=== PATIENT | female | born 1980 ===

== ENCOUNTER 2020-08-28 10:20 | Outpatient (REF) | payer MEDICAID, SELFPAY ==
[2020-08-28 10:57] LABS: MANUAL DIFF FLAG NO
[2020-08-28 11:02] LABS: Basophils Percent Auto 0.5 % (0-2); Eosinophils Percent Auto 0.7 % (0-4); Hematocrit 37.7 % (37-47); Hemoglobin 12.7 g/dl (12.0-16.0); Imm Gran Abs Auto 0.01 X10*3/uL (0.00-0.03); Imm Gran Pct Auto 0.2 % (0.0-0.4); Lymphocytes Absolute Auto 1.8 X10*3/uL (1.2-4.9); Lymphocytes Percent Auto 42.7 % (20-40); Mean Corpuscular HGB Conc 33.7 g/dl (31.0-35.0); Mean Corpuscular Hemoglobin 30.9 pg (27.0-33.0); Mean Corpuscular Volume 91.7 fL (80-98); Mean Platelet Volume 9.6 fL (9.4-12.3); Monocytes Absolute Auto 0.3 X10*3/uL (0.1-1.2); Monocytes Percent Auto 6.7 % (2-11); Neutrophils Absolute Auto 2.1 X10*3/uL (2.0-8.3); Neutrophils Percent Auto 49.2 % (45-73); Platelet Count 242 X10*3/uL (160-400); Red Blood Count 4.11 X10*6/uL (4.20-5.50); Red Cell Distribution Width 12.5 % (11.0-16.0); White Blood Count 4.2 X10*3/uL (4.8-10.8)
[2020-08-28 11:31] LABS: Alanine Aminotransferase 24 U/L (0-31); Albumin Level 4.4 g/dL (3.5-5.0); Alkaline Phosphatase 52 U/L (39-117); Aspartate Amino Transferase 21 U/L (5-31); Bilirubin Direct 0.2 mg/dL (0.0-0.5); Bilirubin Total 0.3 mg/dL (0.0-1.0)
[2020-08-28 11:44] LABS: TSH reflex Free T4 0.41 mIU/mL (0.32-4.0)
[2020-08-28 12:00] LABS: Vitamin B12 391 pg/mL (200-900)
== END 2020-08-28 10:21 | disposition home or self-care (01) ==
LOC: HO.LAB 10:20
PROVIDERS: Visit Provider Internal Medicine
DX: E53.8 Deficiency of other specified B group vitamins (principal); R53.83 Other fatigue
CPT/HCPCS: 36415; 80076; 82607; 84443; 85025

== ENCOUNTER → 2020-11-21 07:25 | Outpatient (BNVA) | payer MEDICAID, SELFPAY | PROVIDERS: Visit Provider Internal Medicine Endocrinology, Diabetes & Metabolism | DX: R23.2 Flushing (principal); R61 Generalized hyperhidrosis | CPT/HCPCS: 99202 ==

== ENCOUNTER 2020-11-21 08:29 | Outpatient (REF) | payer MEDICAID, SELFPAY ==
[2020-11-21 10:58] LABS: Free T4 (Free Thyroxine) 0.99 ng/dL (0.71-1.85); Thyroid Stimulating Hormone 0.88 uIU/mL (0.32-4.0)
[2020-11-22 17:08] LABS: Follicle Stimulating Hormone 26.9 mIU/mL; Lutenizing Hormone 9.9 mIU/mL
[2020-11-24 22:33] LABS: Estradiol Ultra Sensitive 15 pg/mL
[2020-11-28 15:22] LABS: Estrogen 180.6 pg/mL
== END 2020-11-21 08:30 | disposition home or self-care (01) ==
LOC: HO.10HDL 08:29
PROVIDERS: Visit Provider Internal Medicine Endocrinology, Diabetes & Metabolism
DX: R23.2 Flushing (principal)
CPT/HCPCS: 36415; 82670; 82672; 83001; 83002; 84439; 84443

== ENCOUNTER 2020-12-27 09:20 | Outpatient (REF) | payer MEDICAID, SELFPAY ==
[2020-12-31 21:47] LABS: Hydroindolacetic Acid,5- 9.3 mg/24 h (<=6.0); Total Volume 1575 mL
== END 2020-12-27 09:21 | disposition home or self-care (01) ==
LOC: HO.LNP 09:20
PROVIDERS: Visit Provider Internal Medicine Endocrinology, Diabetes & Metabolism
DX: R23.2 Flushing (principal)
CPT/HCPCS: 81050; 83497

== ENCOUNTER 2021-01-13 13:29 | Outpatient (REF) | payer MEDICAID, SELFPAY ==
--- NOTE | ~2021-01-13 | MM_ITS ---
EXAMINATION: MM SCREENING DIGITAL BREAST TOMOSYNTHESIS, BILATERAL CLINICAL INFORMATION: Screening. Asymptomatic. The lifetime risk of breast cancer based on the Tyrer-Cuzick Model is 9.2%. COMPARISON: Mammography: July 03, 2019 TECHNIQUE: Digital breast tomosynthesis is performed in both the craniocaudal and mediolateral oblique views along with computer-aided detection (CAD). Synthesized 2D images are generated from the tomosynthesis. FINDINGS: The breasts are extremely dense, which lowers the sensitivity of mammography (ACR BI-RADS breast composition Category d). There are no significant masses, abnormal calcifications, or other abnormalities. MM/MM tomosynthesis screening BI IMPRESSION: There are no significant changes from prior study. ASSESSMENT: BI-RADS 1: Negative RECOMMENDATION: Routine annual mammography screening. This patient's information was entered into a reminder system with a target due date for their next mammogram.
== END 2021-01-13 13:30 | disposition home or self-care (01) ==
LOC: HO.MAMMO 13:29
PROVIDERS: PCP Family Medicine; Visit Provider Family Medicine
DX: Z12.31 Encounter for screening mammogram for malignant neoplasm of breast (principal)
CPT/HCPCS: 77063; 77067

== ENCOUNTER 2021-01-14 09:44 | Outpatient (REF) | payer MEDICAID, SELFPAY ==
[2021-01-17 17:51] LABS: Chromogranin A 73 ng/mL (25-140)
== END 2021-01-14 09:45 | disposition home or self-care (01) ==
LOC: HO.LAB 09:44
PROVIDERS: PCP Family Medicine; Visit Provider Internal Medicine Endocrinology, Diabetes & Metabolism
DX: R23.2 Flushing (principal)
CPT/HCPCS: 36415; 86316

== ENCOUNTER 2022-01-20 15:41 | Outpatient (REF) | payer MEDICAID, SELFPAY ==
--- NOTE | ~2022-01-20 | MM_ITS ---
EXAMINATION: MM SCREENING DIGITAL BREAST TOMOSYNTHESIS, BILATERAL CLINICAL INFORMATION: Screening. Asymptomatic. The lifetime risk of breast cancer based on the Tyrer-Cuzick Model is 9%. COMPARISON: Mammography: 01/13/2021, 07/03/2019 (baseline) TECHNIQUE: Digital breast tomosynthesis is performed in both the craniocaudal and mediolateral oblique views along with computer-aided detection (CAD). Synthesized 2D images are generated from the tomosynthesis. FINDINGS: The breasts are heterogeneously dense, which may obscure small masses (ACR BI-RADS breast composition Category c). There are no significant masses, abnormal calcifications, or other abnormalities. The axilla and skin contours are unremarkable. MM/MM tomosynthesis screening BI IMPRESSION: No mammographic evidence of malignancy. ASSESSMENT: BI-RADS 1: Negative RECOMMENDATION: Routine annual mammography screening. This patient's information was entered into a reminder system with a target due date for their next mammogram.
== END 2022-01-20 15:42 | disposition home or self-care (01) ==
LOC: HO.MAMMO 15:41
PROVIDERS: PCP Family Medicine; Visit Provider Emergency Medicine
DX: Z12.31 Encounter for screening mammogram for malignant neoplasm of breast (principal)
CPT/HCPCS: 77063; 77067

== ENCOUNTER 2023-03-01 15:05 | Outpatient (REF) | payer MEDICAID, SELFPAY ==
--- NOTE | ~2023-03-01 | MM_ITS ---
EXAMINATION: MM SCREENING DIGITAL BREAST TOMOSYNTHESIS, BILATERAL CLINICAL INFORMATION: Screening. Asymptomatic. The lifetime risk of breast cancer based on the Tyrer-Cuzick Model is 9%. COMPARISON: Mammography: 01/20/2022, 01/13/2021, 07/03/2019 TECHNIQUE: Digital breast tomosynthesis is performed in both the craniocaudal and mediolateral oblique views along with computer-aided detection (CAD). Synthesized 2D images are generated from the tomosynthesis. FINDINGS: The breasts are heterogeneously dense, which may obscure small masses (ACR BI-RADS breast composition Category c). There is a fine fibronodular parenchymal pattern similar to prior studies. No developing density or architectural abnormality. There are no significant masses, abnormal calcifications, or other abnormalities. The axilla and skin contours are unremarkable. MM/MM tomosynthesis screening BI IMPRESSION: No mammographic evidence of malignancy. ASSESSMENT: BI-RADS 1: Negative RECOMMENDATION: Routine annual mammography screening. This patient's information was entered into a reminder system with a target due date for their next mammogram.
== END 2023-03-01 15:06 | disposition home or self-care (01) ==
LOC: HO.MAMMO 15:05
PROVIDERS: PCP Family Medicine; Visit Provider Family Medicine
DX: Z12.31 Encounter for screening mammogram for malignant neoplasm of breast (principal)
CPT/HCPCS: 77063; 77067

== ENCOUNTER 2023-05-18 19:18 | Outpatient (REF) | payer MEDICAID, SELFPAY ==
[2023-05-24 06:34] LABS: HPV mRNA E6/E7 rflx Not Detected (Not Detected)
== END 2023-05-18 19:19 | disposition home or self-care (01) ==
LOC: HO.HHCLNP 19:18
PROVIDERS: Visit Provider Advanced Practice Midwife
DX: Z12.4 Encounter for screening for malignant neoplasm of cervix (principal); Z11.51 Encounter for screening for human papillomavirus (HPV)
CPT/HCPCS: 87624; 88142

== ENCOUNTER 2023-06-10 08:59 | Emergency (ER) | payer MEDICAID, SELFPAY ==
--- NOTE | ~2023-06-10 | XR_ITS ---
EXAMINATION: XR CERVICAL SPINE CLINICAL INFORMATION: Neck pain and right arm pain COMPARISON: Previous x-ray from 2013 TECHNIQUE: 4 views of the cervical spine were obtained. FINDINGS: Bone alignment is normal. No fracture or dislocation. Mild disc space narrowing at C5-C6. Prevertebral soft tissues are normal. XR/XR cervical spine 4V IMPRESSION: Mild disc space narrowing at C5-C6.
[2023-06-10 09:29] VITALS: BP 115/68; PULSE 94; RESP 14; TEMP 36.9; O2SAT 98
[2023-06-10 09:35] VITALS: BP 115/68; PULSE 98; RESP 16; TEMP 36.9; BMI 23.4
--- NOTE | 2023-06-10 09:54 | ED.NECK ---
HPI - Neck Pain/Injury General Chief Complaint: Extremity Problem Stated Complaint: R Side Neck Shoulder Arm Pain No Injury Time Seen by Provider: 06/10/23 09:13 Source: patient Mode of arrival: ambulatory Limitations: no limitations History of Present Illness HPI Narrative: 42-year-old right-hand dominant female presents to the ER for evaluation of neck pain for the last 1 month. She states the pain is mostly on the right side of her neck and the back of her neck that radiates to her upper back, posterior right shoulder and now down her arm into her hands. She has some tingling sensation down in her hand. She denies any trauma or injury. No history of neck pain in the past. She went [facility] this week, was prescribed Motrin, Tylenol, pain patches with minimal relief. She denies any headache. MD complaint: neck pain Onset (ago): month(s) (1) Place: home Radiation: right lateral Severity: moderate Severity scale (1-10): 7 Quality: sharp and aching Duration: progressively worsening Relieving factors: none Exacerbating factors: movement of extremity and movement of neck Context: unknown Associated symptoms: numbness and tingling Treatments prior to arrival: acetaminophen Related Data Home Medications Medication Instructions Recorded Confirmed diphenoxylate-atropine 2.5 2 tab PO TID-QID PRN 11/21/20 11/21/20 mg-0.025 mg tablet famotidine 20 mg tablet (Acid 20 mg PO BID 11/21/20 11/21/20 Pharmacy Technology Instructor (famotidine)) zolpidem 10 mg tablet (Ambien) 10 mg PO BEDTIME PRN 11/21/20 11/21/20 Previous Rx's Medication Instructions Recorded cyclobenzaprine 10 mg tablet 10 mg PO TID PRN muscle spasm #14 06/10/23 tabs prednisone 20 mg tablet 40 mg PO DAILY #10 tabs 06/10/23 Allergies Allergy/AdvReac Type Severity Reaction Status Date / Time No Known Allergies Allergy Unverified 07/03/20 15:09 [No Known Allergies*] Review of Systems Review of Systems: Yes all other systems are reviewed and are negative PMFSH Past Medical History Medical History (Updated 06/10/23 @ 11:39 by MILE Dillard) Hot flashes Surgical History (Updated 11/21/20 @ 07:33 by Elvira Bean LPN) No history of previous surgery Family History Family History (Updated 11/21/20 @ 07:34 by Elvira Bean LPN) Mother Hypertension Maternal Aunt Diabetes Social History Social History (Updated 11/21/20 @ 07:35 by Elvira Bean LPN) Alcohol intake: never Advance Directives: No Advance Directives Information Provided: No Physical Exam Vital Signs: Vital Signs: Last Vital Signs Temp 98.4 F 06/10/23 09:35 Pulse 98 06/10/23 09:35 Resp 16 06/10/23 09:35 BP 115/68 06/10/23 09:35 Pulse Ox 98 06/10/23 09:29 O2 Del Method Room Air 06/10/23 09:35 BMI result Body Mass Index 23.4 Appearance: Alert. Oriented X3. No acute distress. Head: normocephalic, atraumatic. Eyes: Pupils equal, round and reactive to light. ENT: Pharynx normal. No tonsillar swelling or exudate. Neck: Normal inspection. Neck supple. No midline tenderness. There is right sided soft tissue tenderness with limited ROM, pain with rotation to the left. Soft tissue tenderness and palpable spasm of the upper trapezius. CVS: Normal heart rate and rhythm. Pulses normal. Respiratory: No respiratory distress. Breath sounds normal. Abdomen: Soft and nontender. +BS x4 Skin: Skin warm and dry. Normal skin color. Normal skin turgor. No rashes. Extremities: No lower extremity edema. No joint swelling. Normal passive ROM of the RUE. Neuro/psych: Oriented X 3. No motor deficit. Strength is equal and symmetrical throughout. No sensory deficit. CN II-XII intact. Normal speech and cognition. Medications Administered Discontinued Medications Generic Name Dose Route Start Last Admin Trade Name Freq PRN Reason Stop Dose Admin Cyclobenzaprine HCl 10 mg 06/10/23 09:37 06/10/23 11:15 Cyclobenzaprine Hcl 10 Mg Tablet PO 06/10/23 09:38 10 mg ONCE ONE Administration Ketorolac Tromethamine 30 mg 06/10/23 09:37 06/10/23 11:15 Ketorolac Tromethamine 30 Mg/Ml Vial IM 06/10/23 09:38 30 mg ONCE ONE Administration Lidocaine 1 patch 06/10/23 09:37 06/10/23 11:16 Lidocaine 4 % Patch Adh..Patch TRANSDERMA 06/10/23 09:38 1 patch ONCE ONE Administration Protocol Medical Decision Making Medical Decision Making [facility] Narrative: 42-year-old female presents to the ER for evaluation of nontraumatic right-sided neck pain for the last 1 month. Progressively worsening and now with radicular symptoms down to the right arm. She is neurologically intact with equal strength. X-ray showing mild disc space narrowing at C5-C6. Will plan to start steroids for anti-inflammatories and muscle relaxers for muscle strain and spasm. She will follow-up with primary care doctor for further evaluation and treatment. Return precautions were discussed. Stable for discharge home. Differential Diagnosis Differential Diagnoses: The differential diagnosis associated with the presentation includes cervical radiculopathy, degenerative disc disease, torticollis, neuropathy Independent Interpretation I performed an independent interpretation of an: Plain X-Ray Interpretation: x-ray without acute fractures or significant disc space narrowing - agree w/ radiology read Radiology Impression Discussion of test interpretation with radiology: I have reviewed the radiologist's reading. Radiologist Impression: EXAMINATION: XR CERVICAL SPINE CLINICAL INFORMATION: Neck pain and right arm pain COMPARISON: Previous x-ray from 2013 TECHNIQUE: 4 views of the cervical spine were obtained. FINDINGS: Bone alignment is normal. No fracture or dislocation. Mild disc space narrowing at C5-C6. Prevertebral soft tissues are normal. XR/XR cervical spine 4V IMPRESSION: Mild disc space narrowing at C5-C6. External Record Review External record reviewed: Prior outpatient labs and Prior outpatient radiology Prescription Management I considered prescription management with: Pain Medication Discharge Plan Discharge Clinical Impression: Cervical radiculopathy Patient Disposition: Home, Self-Care Instructions: Cervical Radiculopathy (ED) Additional Instructions: Your x-ray today showed some mild disc narrowing Take the prescribed prednisone x5 days to help with swelling that could be pinching a nerve Take the prescribed muscle relaxer Use a heating pad on low-medium heat several times per day Follow up with your PCP for further evaluation and treatment. If you develop new or worsening symptoms call 911 or come back to the ER for further evaluation. Prescriptions: New cyclobenzaprine 10 mg tablet 10 mg PO TID PRN (Reason: muscle spasm) Qty: 14 0RF prednisone 20 mg tablet 40 mg PO DAILY Qty: 10 0RF No Action famotidine [Acid Pharmacy Technology Instructor (famotidine)] 20 mg tablet 20 mg PO BID zolpidem [Ambien] 10 mg tablet 10 mg PO BEDTIME PRN diphenoxylate-atropine 2.5-0.025 mg tablet 2 tab PO TID-QID PRN Referrals: Krystal Metcalf PRINTER'S ASSISTANT [Primary Care Provider] - Interventions: ED Discharge Assessment Last Done: 06/10/23 11:45 Discharge Date/Time: 06/10/23 11:45
[2023-06-10] MEDS: Ketorolac Tromethamine 30 MG/ML VIAL IM (11:15)
[2023-06-10] MEDS: Cyclobenzaprine HCl 10 MG TABLET PO (11:15)
[2023-06-10] MEDS: Lidocaine 4 % Patch ADH..PATCH 1 PATCH TRANSDERMA (11:16)
== END 2023-06-10 11:45 | disposition home or self-care (01) ==
PROVIDERS: Emergency Provider Emergency Medicine Emergency Medical Services; PCP Registered Nurse Community Health
DX: M54.12 Radiculopathy, cervical region (principal); M54.2 Cervicalgia
CPT/HCPCS: 72050; 96372; 99284; J1885

== ENCOUNTER 2023-07-01 10:18 | Outpatient (REF) | payer MEDICAID, SELFPAY ==
--- NOTE | ~2023-07-01 | XR_ITS ---
EXAMINATION: XR SHOULDER, RIGHT CLINICAL INFORMATION: Pain in right shoulder COMPARISON: None available. TECHNIQUE: AP external rotation, Grashey, scapular Y, and axillary views of the right shoulder. FINDINGS: The bones and soft tissues are normal. No fracture. Glenohumeral and acromioclavicular alignment is anatomic with normal joint space. No abnormal soft tissue calcifications. XR/XR shoulder RT min 2V IMPRESSION: No bony abnormality.
== END 2023-07-01 10:19 | disposition home or self-care (01) ==
LOC: HO.HOSX 10:18
PROVIDERS: Visit Provider Physician Assistant
DX: M25.511 Pain in right shoulder (principal); M75.81 Other shoulder lesions, right shoulder; M54.12 Radiculopathy, cervical region; R20.0 Anesthesia of skin; R20.2 Paresthesia of skin
CPT/HCPCS: 73030; 99212

== ENCOUNTER 2023-07-01 12:34 | Outpatient (AMB) | payer MEDICAID, SELFPAY ==
--- NOTE | 2023-07-01 12:47 | A.OFFVIS_ITS ---
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 Patient reports pain started on 06/08/23, denies any injury. States thought she had a stiff neck but pain started to that radiate down her arm to her neck. Currently constant burning/tingling pain. She has numbness in her thumb, 2nd and 3rd digit. Finds no relief with Tylenol, ibuprofen, or tramadol that was prescribed by walk in clinic. No other tx. 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 She states she has constant burning and tingling pain in her shoulder which radiates from her neck down to her arm. She also c/o numbness in her thumb, 2nd and 3rd digit. She finds no relief with Tylenol, ibuprofen or tramadol which was prescribed by the walk-in clinic. She denies any recent injury and has not had any treatment in the past. [facility] Medical History (Updated 07/01/23 @ 12:59 by Rafa Hou PA-C) Hot flashes Surgical History No history of previous surgery Family History (Updated 11/21/20 @ 07:34 by Elvira Bean LPN) Mother Hypertension Maternal Aunt Diabetes Social History (Updated 07/01/23 @ 12:50 by ZORAN Levin) Alcohol intake: never Patient Tobacco Use Status: Never used Tobacco Current occupational status: unemployed Review of Systems Const All systems reviewed & are unremarkable except as noted in HPI and below Physical Exam Vital Signs: BMI result Body Mass Index 23.4 Const General: cooperative, healthy appearing, comfortable, no acute distress, well developed and alert Orientation/consciousness: patient oriented x3 HEENT Head: Yes normal to inspection, Yes normocephalic and Yes atraumatic Eyes General: appearance normal, both eyes and all related structures Resp Effort & Inspection: normal respiratory effort and able to speak in complete sentences Cardio Rate: regular rate Peripheral pulses: Peripheral pulses 2+ throughout GI Palpation (GI): Soft to palpation Skin Lesions: no lesions Rashes: no rashes Neuro General: patient oriented x3 Extrem Other: Right shoulder: Tenderness along the trapezium which extends to the right side of her neck. She does have pain with [id number] rotation of the neck. Positive Pollard. Results Reviewed Results Reviewed: Xrays were obtained in the office today and personally reviewed by me of the right shoulder are negative for acute fracture or dislocations Assessment & Plan Assessment & Plan (1) Tendinitis of right rotator cuff: Code(s): M75.81 - Other shoulder lesions, right shoulder (2) Cervical radiculopathy: Code(s): M54.12 - Radiculopathy, cervical region Plan An order has been placed of physical therapy for C spine and right shoulder. We will also obtain an EMG study for further evaluate the burning sensation on her RUE. I did discuss potentially sending her to physiatry for trigger point injection depending on the results of her EMG study. She is content with this plan. Orders: Orders NE nerve conduction velocity 07/01/23 R20.0 - Anesthesia of skin, R20.2 - Paresthesia of skin NE electromyogram (EMG) 07/01/23 R20.0 - Anesthesia of skin, R20.2 - Paresthesia of skin XR shoulder RT min 2V 07/01/23 M25.511 - Pain in right shoulder PT Evaluation and Treatment 07/01/23 M75.81 - Other shoulder lesions, right shoulder, M54.12 - Radiculopathy, cervical region Medications: New diclofenac sodium 1% apply 4grams to affected area four times a day as needed 4 grams topical QID 100 grams 6RF 30 days Patient Instructions: Scribed for Rafa Hou PA-C, by Heron Joe medical laboratory specialist, on 07/01/2023 at 1:00 PM EST. Rafa Zamora PA-C, have personally reviewed and agree with the information entered by the scribe. Coding Level of Care Code New Pt Level 3 (30632) Diagnoses Tendinitis of right rotator cuff M75.81 Cervical radiculopathy M54.12
[2023-07-01 12:50] VITALS: BMI 23.4
== END 2023-07-01 14:20 | disposition home or self-care (01) ==
PROVIDERS: PCP Registered Nurse Community Health; Visit Provider Physician Assistant
DX: M75.81 Other shoulder lesions, right shoulder (principal); M54.12 Radiculopathy, cervical region
CPT/HCPCS: 99203

== ENCOUNTER 2023-07-28 14:54 | Outpatient (REF) | payer MEDICAID, SELFPAY ==
--- NOTE | 2023-07-28 14:57 | EMG_ITS ---
Chief complaint: Right shoulder pain Reason for referral: Evaluate for radiculopathy Referred by: Rafa TREADWELL Procedure done: Right upper extremity NCS/EMG Precautions and/or limitations: None The limb temperature was monitored continuously and remained between 32-36 degrees C during the performance of the NCS. Nerve Conduction Studies Anti Sensory Summary Table ?Stim Site NR Onset (ms) Norm Onset (ms) Peak (ms) Norm Peak (ms) O-P Amp (?V) Norm O-P Amp Site1 Site2 Delta-0 (ms) Dist (cm) Иван (m/s) Norm Иван (m/s) Right Median Anti Sensory (2nd Digit) Wrist ? 2.7 3.4 <3.6 50.4 >10 Wrist 2nd Digit 2.7 14.0 52 Right Radial Anti Sensory (Thumb) Forearm ? 1.8 2.2 <3.1 39.1 Forearm Thumb 1.8 0.0 Right Ulnar Anti Sensory (5th Digit) Wrist ? 2.7 3.3 <3.7 54.5 >15.0 Wrist 5th Digit 2.7 14.0 52 Motor Summary Table ?Stim Site NR Onset (ms) Norm Onset (ms) O-P Amp (mV) Norm O-P Amp iAmp (mV) Amp (1st) (%) Site1 Site2 Delta-0 (ms) Dist (cm) Иван (m/s) Norm Иван (m/s) Right Median Motor (Abd Poll Brev) Wrist ? 2.9 <3.9 8.9 >4.5 10.8 100.0 Elbow Wrist 3.4 19.0 56 >45 Elbow ? 6.3 8.9 10.7 100.0 Right Ulnar Motor (Abd Dig Minimi) Wrist ? 2.7 <3.0 7.5 >5 8.6 100.0 B Elbow Wrist 2.5 16.0 64 >45 B Elbow ? 5.2 7.8 9.0 104.0 A Elbow B Elbow 1.3 10.0 77 >45 A Elbow ? 6.5 7.9 9.2 105.3 EMG ?Side Muscle Nerve Root Ins Act Fibs Psw Amp Dur Poly Recrt Int Pat Comment Right 1stDorInt Ulnar C8-T1 Nml Nml Nml Nml Nml 0 Nml Complete Right FlexCarRad Median C6-7 Nml Nml Nml Nml Nml 0 Nml Complete Right Biceps Musculocut C5-6 Nml Nml Nml Nml Nml 0 Nml Complete Right Triceps Radial C6-7-8 Nml Nml Nml Nml Nml 0 Nml Complete Right Deltoid Axillary C5-6 Nml Nml Nml Nml Nml 0 Nml Complete FINDINGS: All motor and sensory nerves tested showed normal latencies, amplitudes and conduction velocities. Concentric needle EMG was performed in selected muscles of the right upper extremity. Study did not reveal signs of electric abnormalities as shown in the table below. IMPRESSION: 1. This is a normal study. 2. There is no electrodiagnostic evidence for median neuropathy, ulnar neuropathy, brachial plexopathy, or cervical radiculopathy. Thank you for your kind referral. Zahira Suazo MD, LOIS Board Certified, [place] Board [employer] and Rehabilitation (ABPMR) Board Certified, [place] Board of Electrodiagnostic Medicine (ABEM) CODIN [id number] MTDD
== END 2023-07-28 14:55 | disposition home or self-care (01) ==
LOC: HO.NEURO 14:54
PROVIDERS: PCP Registered Nurse Community Health; Visit Provider Physician Assistant
DX: R20.0 Anesthesia of skin (principal); R20.2 Paresthesia of skin
CPT/HCPCS: 95886; 95909

== ENCOUNTER → 2023-07-28 14:57 | Outpatient (BNV) | payer MEDICAID, SELFPAY | PROVIDERS: PCP Registered Nurse Community Health; Visit Provider Physical Medicine & Rehabilitation | DX: M25.511 Pain in right shoulder (principal) | CPT/HCPCS: 95886; 95909 ==

== ENCOUNTER 2023-08-15 15:33 | Outpatient (AMB) | payer MEDICAID, SELFPAY ==
[2023-08-15 15:33] VITALS: BMI 23.4
--- NOTE | 2023-08-15 15:33 | A.OFFVIS_ITS ---
Intake Vital Signs 08/15/23 15:33 Height 5 ft 2 in Weight 128 lb BMI 23.4 Intake Visit Reasons: Tele- Right Shoulder pain, EMG review Intake Note: Ines is a 42 year old female who presents VIA telephone for an EMG review and complaints of right shoulder pain. Allergies No Known Allergies [No Known Allergies*] Allergy (Unverified 08/15/23 15:34) HPI Tele- Right Shoulder pain, EMG review HPI Details 42 yo presents for telehealth EMG review RUE. She continues to have discomfort in the neck region. Her numbness and tingling has subsided, not constant. [facility] Medical History (Updated 07/01/23 @ 12:59 by Rafa Hou PA-C) Hot flashes Surgical History No history of previous surgery Family History (Updated 11/21/20 @ 07:34 by Elvira Bean LPN) Mother Hypertension Maternal Aunt Diabetes Social History (Updated 07/01/23 @ 12:50 by ZORAN Levin) Alcohol intake: never Patient Tobacco Use Status: Never used Tobacco Current occupational status: unemployed Review of Systems Const All systems reviewed & are unremarkable except as noted in HPI and below Physical Exam Vital Signs: BMI result Body Mass Index 23.4 Resp Effort & Inspection: normal respiratory effort and able to speak in complete sentences Results Reviewed Results Reviewed: EMG 07/28/23 IMPRESSION: 1. This is a normal study. 2. There is no electrodiagnostic evidence for median neuropathy, ulnar neuropathy, brachial plexopathy, or cervical radiculopathy. Assessment & Plan Assessment & Plan (1) Cervical radiculopathy: Code(s): M54.12 - Radiculopathy, cervical region (2) Tendinitis of right rotator cuff: Code(s): M75.81 - Other shoulder lesions, right shoulder Plan We discussed options, she does have an appt for PT set up which I think she should keep. I did offer her an appt with our finishing lab technician to further evaluate the neck pain. This may be something she would benefit from trigger point injections. She is content with this plan and will f/u with me prn. Telehealth Telehealth Location of provider rendering services: practice address Location of patient: address on file Patient Identification confirmed using: Name, : Yes Telehealth method: voice only Patient verbally consented to treatment: Yes Patient verbally consented to billing insurance company: Yes Patient informed of any privacy concerns related to visit: Yes Coding Level of Care Code Tele Est Pt Level 3 (89141) Diagnoses Cervical radiculopathy M54.12 Tendinitis of right rotator cuff M75.81
== END 2023-08-15 16:30 | disposition home or self-care (01) ==
LOC: HO.HOS 15:33
PROVIDERS: PCP Student in an Organized Health Care Education/Training Program; Visit Provider Physician Assistant
DX: M54.12 Radiculopathy, cervical region (principal); M75.81 Other shoulder lesions, right shoulder
CPT/HCPCS: 99213

== ENCOUNTER → 2023-08-15 15:33 | Outpatient (BNVA) | payer MEDICAID, SELFPAY | PROVIDERS: PCP Student in an Organized Health Care Education/Training Program; Visit Provider Physician Assistant ==

== ENCOUNTER 2023-09-21 11:00 | Outpatient (RCR) | payer MEDICAID, SELFPAY | END 2023-10-31 09:43 | disposition home or self-care (01) | LOC: HO.PT 11:00 | PROVIDERS: PCP Student in an Organized Health Care Education/Training Program; Visit Provider Physician Assistant | DX: M75.81 Other shoulder lesions, right shoulder (principal); M54.12 Radiculopathy, cervical region | CPT/HCPCS: 97110; 97140; 97161 ==

== ENCOUNTER 2023-10-06 08:53 | Outpatient (AMB) | payer MEDICAID, SELFPAY ==
--- NOTE | 2023-10-06 08:58 | A.OFFVIS_ITS ---
Intake Vital Signs 10/06/23 08:59 Height 5 ft 2 in Weight 128 lb BMI 23.4 Intake Visit Reasons: New prob- Right neck / trap pain Intake Note: Ines 42 yr old female who is right hand dominant, presents today for a new problem visit for her right neck and right trap pain. Last seen with Herbert carcamo for her right shoulder pain. Patient describes pain as a shooting sharp radiating stab in neck and shoulder. States she has numbness and tingling and pain with ROM. Also states she is having radiating pain to her clavicle and and breast as well. Referred by Herbert Sanches for a further evaluation. Allergies No Known Allergies [No Known Allergies*] Allergy (Unverified 10/06/23 09:05) Medication List - Last Reconciled 10/06/23 by Zahira Suazo MD diclofenac sodium 1% 4 grams topical QID 30 days diphenoxylate-atropine 2.5-0.025 mg 2 tabs PO TID-QID PRN famotidine (Acid Maintenance Associate (famotidine)) 20 mg PO BID zolpidem (Ambien) 10 mg PO BEDTIME PRN HPI HPI Comments History of Present Illness Details At least 4 months, started as stiff neck. Then next day, woke up with posterior neck pain, running down to right arm with numbness on the thumb. This right sided area is still there. Radiation to left arm around May, but no numbness. Pain also radiates towards the right chest and under arm. I have seen the patient previously for EMG, which was normal. She is following with Orthopedics, refered to physiatry for further evaluation Xray shoulder unremarkable. Cspine xray showed disc space loss C5-6. Has seen PCP 09/23/23, ordered MRI, but still pending. Has gone to PT, 8-9 sessions at least. Advised to stop because not helping. Has been prednisone in May, doesn't think it helped. Also has been given to gabapentin which didn't help, and cymbalta which caused side effects. Flexeril didn't help as well. [facility] Medical History (Updated 10/06/23 @ 09:21 by Zahira Suazo MD) Hot flashes Surgical History No history of previous surgery Family History (Updated 11/21/20 @ 07:34 by Elvira Bean LPN) Mother Hypertension Maternal Aunt Diabetes Social History Alcohol intake: never Patient Tobacco Use Status: Never used Tobacco Current occupational status: unemployed Review of Systems Const All systems reviewed & are unremarkable except as noted in HPI and below Physical Exam Vital Signs: BMI result Body Mass Index 23.4 Constitutional: Patient appears to be in no acute distress, well nourished and well developed. However very uncomfortable. Patient was appropriately conversant and oriented. Good historian. MSK: Inspection reveals appropriate head and neck positioning. Limited cervical range of motion especially with extension and rotation to the right. Cost pain down to the right shoulder. Tightness on upper trapezius. Tender on right upper arm/subacromial/biceps area. Spurling's sign positive right. Bilateral shoulder, elbow and wrist ROM WNL. No ligamentous laxity or crepitance. No increased effusion. Strength is 5/5 in all muscle groups tested although there is give-way weakness in the right upper arm due to pain. No increased tone noted. Neurological: Neurologic examination of the upper and lower extremities was nonfocal with intact sensation, muscle stretch reflexes and without focal motor deficits . Spence?s negative bilaterally. Babinski was down going bilaterally. Clonus was negative. Gait is non-antalgic without loss of balance. Results Reviewed Results Reviewed: I independently reviewed the results of the following: Shoulder and cervical x-ray as above EMG done by me 07/28/2023 IMPRESSION: 1. This is a normal study. 2. There is no electrodiagnostic evidence for median neuropathy, ulnar neuropathy, brachial plexopathy, or cervical radiculopathy. I reviewed records from the following: Orthopedics Assessment & Plan Assessment & Plan (1) Cervical radiculitis: Code(s): M54.12 - Radiculopathy, cervical region (2) Cervical disc herniation: Code(s): M50.20 - Other cervical disc displacement, unspecified cervical region Plan Symptoms present as cervical radiculitis, right-sided, C5-C6 probably, without signs of myelopathy. It is reasonable to obtain cervical MRI to rule out cervical disc herniation causing radiculopathy. Patient has undergone conservative management including physical therapy and medications, without adequate relief. New order was placed today to facilitate. In the meantime we will prescribe oral prednisone taper. Side effects and precautions discussed with patient. Assessment and plan discussed with patient, and patient was agreeable. All questions were answered thoroughly. I will see her after MRI. Zahira Suazo MD, LOIS Board Certified, [place] [employer] and Rehabilitation (ABPMR) Board Certified, [place] Board [employer] Electrodiagnostic [employer] (ABEM) Orders: Orders MR cervical spine wo con Today M50.20 - Other cervical disc displacement, unspecified cervical region, M54.12 - Radiculopathy, cervical region Medications: New prednisone see taper instructions; 40 mg Daily for three days, 30 mg daily for three days, 20 mg daily for three days, 10 mg daily for three days 5 mg PO DIRECTED 60 tabs 0RF Coding Level of Care Code Est Pt Level 4 (91919) Diagnoses Cervical radiculitis M54.12 Cervical disc herniation M50.20
[2023-10-06 08:59] VITALS: BMI 23.4
== END 2023-10-06 09:24 | disposition home or self-care (01) ==
PROVIDERS: PCP Student in an Organized Health Care Education/Training Program; Visit Provider Physical Medicine & Rehabilitation
DX: M54.12 Radiculopathy, cervical region (principal); M50.20 Other cervical disc displacement, unspecified cervical region
CPT/HCPCS: 99214

== ENCOUNTER → 2023-10-06 08:53 | Outpatient (BNVA) | payer MEDICAID, SELFPAY | PROVIDERS: PCP Student in an Organized Health Care Education/Training Program; Visit Provider Physical Medicine & Rehabilitation | DX: M54.12 Radiculopathy, cervical region (principal); M50.20 Other cervical disc displacement, unspecified cervical region | CPT/HCPCS: 99212 ==

== ENCOUNTER 2023-10-12 16:35 | Outpatient (REF) | payer MEDICAID, SELFPAY ==
--- NOTE | ~2023-10-12 | MR_ITS ---
EXAMINATION: MR CERVICAL SPINE WITHOUT CONTRAST CLINICAL INFORMATION: Radiculopathy. Evaluate for right-sided disc herniation. COMPARISON: X-ray cervical spine dated 06/10/2023. TECHNIQUE: Multiplanar, multisequential imaging of the cervical spine was performed without contrast. FINDINGS: VERTEBRAL BODIES AND PARASPINAL SOFT TISSUES: The marrow signal is homogeneous. There are no compression fractures. Mild retrosubluxation, mild endplate edema, and moderate loss of disc height evident at the C5-C6 level. Mild reversal of the normal cervical lordosis evident with a mild leftward curvature of the cervical spine as well. The paraspinal soft tissues are normal. The vertebral artery flow-voids are maintained. The lung apices are clear. CERVICOMEDULLARY JUNCTION AND VISUALIZED POSTERIOR FOSSA: The craniovertebral junction and imaged portions of the brain parenchyma appear normal. No cord signal abnormality or syrinx is identified. SPINAL LEVELS: C2-C3: No disc pathology or central canal stenosis. Patent foramina. C3-C4: No significant disc pathology. No central canal stenosis or foraminal narrowing. C4-C5: Very mild loss of disc height and mild disc bulge with minimal uncovertebral joint spurring. No central canal stenosis or foraminal narrowing. C5-C6: Moderate loss of disc height and retrosubluxation with a broad-based right subarticular zone disc protrusion suspected to impinge upon the right C6 nerve root and mildly distort the right ventrolateral aspect of the cord. No central canal stenosis. Mild right foraminal narrowing. C6-C7 and C7-T1: Well hydrated normal appearance of the discs without central canal stenosis or foraminal narrowing. MR/MR cervical spine wo con IMPRESSION: Moderate spondylosis at the C5-C6 level with a retrosubluxation and broad-based right subarticular zone disc protrusion suspected to impinge upon the right C6 nerve root with mild distortion of the right ventrolateral aspect of the cord.
== END 2023-10-12 16:36 | disposition home or self-care (01) ==
LOC: HO.MRI 16:35
PROVIDERS: PCP Student in an Organized Health Care Education/Training Program; Visit Provider Physical Medicine & Rehabilitation
DX: M54.12 Radiculopathy, cervical region (principal); M50.20 Other cervical disc displacement, unspecified cervical region
CPT/HCPCS: 72141

== ENCOUNTER 2023-10-28 12:39 | Outpatient (AMB) | payer MEDICAID, SELFPAY ==
--- NOTE | 2023-10-28 13:03 | HO.SPINEOV ---
Intake Intake Visit Reasons: Right C5-6 disc herniated Intake Note: Ms. Espinosa is here today c/o neck pain with bilateral upper and lower extremity pain. [place] done @ [facility] [place] [employer] Required: No Allergies No Known Allergies [No Known Allergies*] Allergy (Unverified 10/06/23 09:05) Assessment & Plan Assessment & Plan (1) Cervical radiculitis: Code(s): M54.12 - Radiculopathy, cervical region Plan Dear colleague, Thank you for referring Ines to our office today. She is a pleasant 42-year-old female who comes in today with a chief complaint of neck pain with radiation into her right upper extremity since May of 2023. She reports that she awoke abruptly one morning with significant neck pain shooting into her right upper extremity. She states that as the months have gone on she has been able to identify the radiation of her pain; first it starts in her neck, then shoots across her right shoulder down her deltoid, then down her forearm and terminates in the right thumb. She reports associated weakness with hand dna sequencing associate on the right side, and also endorses difficulty using her right arm (pain limiting). She states that she is been to physical therapy in the past for this issue, and just finished in September of 2023. She reports it was not helpful and caused her increased pain. She states that she is attempted to utilize [id number] remedies such as Tylenol, ibuprofen, ice, heat, pain patches, and pain relief creams without significant relief of her symptoms. She also has been placed on gabapentin and states it is only mildly helpful. She further reports that her symptoms have begun interrupting her regular daily life, causing her to get very little sleep at night unless her pillows were arranged in the perfect way, and causing her to stop driving as of a couple of months ago because she feels she can not move her neck properly without pain. She is also been unable to work for the past 2 months due to her pain and difficulties using her right arm. PMH: Irritable bowel syndrome, insomnia, GERD. Social hx: Patient does not smoke, reports no substance use. Medications: Zolpidem, Tylenol, famotidine, gabapentin, combination control. Allergies: NKDA. Physical exam: The patient has 4/5 reduced strength in her right upper extremity, including hand dna sequencing associate / interossei. The rest of her strength is 5/5 intact. She reports reduced sensation over her right shoulder and right thumb. The rest of her sensation is intact. Her reflexes are 2+ intact in her upper and lower extremities. She is able to ambulate well and rises from a seated position without difficulty. (-) Spence's, (-) clonus. (+) Spurling's bilaterally, confounded by neck pain at rest. Imaging review: MRI completed at [facility] shows a posterior right sided disc bulge at C5-6 causing significant severe impingement on the right C6 nerve root. No significant central canal stenosis at this level. No notable cord signal change. Impression: Ines is a pleasant 42-year-old female who comes in today with a chief complaint of posterior neck pain with radicular symptoms down her right arm since May of last year. She reports no inciting incident for this injury, but states she instead awoke one morning with significant neck pain with shooting pains into her right arm. Her pain is worse with lifting and hand articulation, and is better when resting. She reports that her pain has gotten to the point where it affects her activities of daily living and has caused her to lose significant amounts of sleep. She is also been unable to work for the last couple of months due to her pain and R hand weakness. The distribution of her pain is in a classic right sided C6 dermatomal distribution, and there is impingement of this nerve noted on MRI imaging. We discussed the possibility of a C5-6 ACDF and reviewed the procedure in detail as a potential means of solving her pain / radiculopathy. We also discussed the possibility of injections, which she does not feel will be helpful given the severity of her symptoms at this time. She has been tentatively scheduled for a C5-6 ACDF on December 29 2023, but was informed that this will need to be reviewed with Dr. Pinedo who will make the final surigcal decision. Ines was given risk and benefits of surgery including but not limited to infection, hematoma, nerve injury, durotomy, weakness, bowel/bladder injury, persistent pain, as well as the option to continue with conservative treatment and patient wishes to proceed with surgery. She is aware she should stop her NSAIDs 7 days prior to surgery. All questions were answered to the best of our ability. If there is anything about this patients medical history that we have overlooked or concerns you have about us proceeding with surgery we would appreciate any input you can offer. Thank you for allowing us to care for your patient. The total time spent with this visit with this patient was 45 minutes reviewing history, physical exam, MRI imaging review, and implementation of treatment plan or further diagnostic testing Rusty Pinedo MD,PhD [facility] Coding Level of Care Code New Pt Level 4 (29960) Diagnoses Cervical radiculitis M54.12
== END 2023-10-28 13:53 | disposition home or self-care (01) ==
PROVIDERS: PCP Student in an Organized Health Care Education/Training Program; Referring Provider Physical Medicine & Rehabilitation; Visit Provider Physician Assistant
DX: M54.12 Radiculopathy, cervical region (principal)
CPT/HCPCS: 99204

== ENCOUNTER → 2023-10-28 12:39 | Outpatient (BNVA) | payer MEDICAID, SELFPAY | PROVIDERS: PCP Student in an Organized Health Care Education/Training Program; Visit Provider Physician Assistant | DX: M54.12 Radiculopathy, cervical region (principal) | CPT/HCPCS: 99212 ==

== ENCOUNTER → 2023-11-08 13:24 | Outpatient (BNV) | payer MEDICAID, SELFPAY | PROVIDERS: PCP Student in an Organized Health Care Education/Training Program; Visit Provider Internal Medicine Cardiovascular Disease | DX: Z01.810 Encounter for preprocedural cardiovascular examination (principal) | CPT/HCPCS: 93010 ==

== ENCOUNTER 2023-11-17 11:18 | Day surgery (SDC) | payer MEDICAID, SELFPAY ==
--- NOTE | 2023-11-08 | ECG_ITS ---
Test Reason : PREOP Blood Pressure : / mmHG Vent. Rate : 105 BPM Atrial Rate : 105 BPM P-R Int : 160 ms QRS Dur : 074 ms QT Int : 350 ms P-R-T Axes : 074 049 033 degrees QTc Int : 462 ms Sinus tachycardia Otherwise normal ECG No previous ECGs available Referred By: Kalani Dickerson Electronically Signed By:Patel Eastman
[2023-11-08 13:04] VITALS: BP 132/72; PULSE 106; RESP 16; O2SAT 98; BMI 25.1
--- NOTE | 2023-11-08 13:19 | P.CONAN_ITS ---
Documented by User: Kalani Dickerson NP 11/08/23 13:26 HPI - Anesthesia Eval Consult details Narrative: 43yo F for C5-6 Ant Cerv Discectomy w/ fusion, 11/17/23 No recent illness NO CP/SOB with housework. Activity limited to pain right currently. Prior to, no limitations GERD. H2 deloris BID covers symptoms PMFSH Active Problems Active Problems: All Active Problems (Updated 11/08/23 @ 13:15 by Raiza Khanna RN) Cervical disc herniation (Acute) Cervical radiculitis (Acute) Tendinitis of right rotator cuff (Acute) Hot flashes (Acute) Past Medical History Medical History Low back pain GERD (gastroesophageal reflux disease) History of IBS Neck pain Insomnia Hot flashes Family History Family History Mother Hypertension Maternal Aunt Diabetes Family history of problems with anesthesia: No Surgical History Surgical History History of esophagogastroduodenoscopy (EGD) Hx of colonoscopy History of Problems with Anesthesia: No Social History Social History 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 (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 ages 14+18) Do you presently have visiting nurse or other home services: No Alcohol intake: never Patient Tobacco Use Status: Never used Tobacco Use of substances other than those prescribed or required for medical reasons: No Are you DNR?: No Advance Directives: No Advance Directives Information Provided: Yes Advance Directives on File: No Recently lost weight without trying: No Nutrition Risks: No Nutritional Risk Patient : No FDLMP: 4-5 years ago : No Poor oral hygiene: No Current occupational status: unemployed Meds Allergies Allergy/AdvReac Type Severity Reaction Status Date / Time No Known Allergies Allergy Verified 11/17/23 11:35 [No Known Allergies*] Home Medications Medication Instructions Recorded Confirmed Last Taken Type famotidine 20 mg tablet (Acid 20 mg PO BID 11/21/20 11/07/23 11/17/23 History Family Assistant (famotidine)) zolpidem 10 mg tablet (Ambien) 10 mg PO BEDTIME PRN Insomnia 11/21/20 11/07/23 Unknown History acetaminophen 325 mg tablet 650 mg PO Q6H PRN pain 11/07/23 11/07/23 Unknown History drospirenone 3 mg-ethinyl 1 tab PO DAILY 11/07/23 11/07/23 Unknown History estradiol 0.02 mg tablet gabapentin 300 mg capsule 300 mg PO TID 11/07/23 11/07/23 Unknown History Exam Height,Weight and Vital Signs: Height 5 ft 2 in Weight 62.142 kg Last Vital Signs Pulse 106 H 11/08/23 13:04 Resp 16 11/08/23 13:04 BP 132/72 11/08/23 13:04 Pulse Ox 98 11/08/23 13:04 O2 Del Method Room Air 11/08/23 13:04 Airway Mallampati Class: I TM Dist: >3cm Neck ROM: Poor Loose/Missing/Broken Teeth: Yes (1 x pulled left lower) Heart: tachy Lungs: CTAB Assessment and Plan Assessment Anesthesia Assessment: Anesthesia Plan Discussed and PAT Visit Final Anesthetic Review Family History of Problems with Anesthesia: No History of Problems with Anesthesia: No Documented by User: Demetris Ramon MD 11/17/23 12:04 [facility] Past Medical History Medical History Low back pain GERD (gastroesophageal reflux disease) History of IBS Neck pain Insomnia Hot flashes Family History Family History Mother Hypertension Maternal Aunt Diabetes Surgical History Surgical History History of esophagogastroduodenoscopy (EGD) Hx of colonoscopy Social History Social History 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 (2 children ages 14+18) Do you presently have visiting nurse or other home services: No Alcohol intake: never Patient Tobacco Use Status: Never used Tobacco Use of substances other than those prescribed or required for medical reasons: No Are you DNR?: No Advance Directives: No Advance Directives Information Provided: Yes Advance Directives on File: No Recently lost weight without trying: No Nutrition Risks: No Nutritional Risk Patient : No FDLMP: 4-5 years ago : No Poor oral hygiene: No Current occupational status: unemployed Meds Allergies Allergy/AdvReac Type Severity Reaction Status Date / Time No Known Allergies Allergy Verified 11/17/23 11:35 [No Known Allergies*] Home Medications Medication Instructions Recorded Confirmed Last Taken Type famotidine 20 mg tablet (Acid 20 mg PO BID 11/21/20 11/07/23 11/17/23 History Family Assistant (famotidine)) zolpidem 10 mg tablet (Ambien) 10 mg PO BEDTIME PRN Insomnia 11/21/20 11/07/23 Unknown History acetaminophen 325 mg tablet 650 mg PO Q6H PRN pain 11/07/23 11/07/23 Unknown History drospirenone 3 mg-ethinyl 1 tab PO DAILY 11/07/23 11/07/23 Unknown History estradiol 0.02 mg tablet gabapentin 300 mg capsule 300 mg PO TID 11/07/23 11/07/23 Unknown History Exam Airway Mallampati Class: II TM Dist: >3cm Neck ROM: Full Assessment and Plan Final Anesthetic Review NPO: Yes ASA Class: II Final Preanesthetic Review: No Changes in Pt Med Stat, Meds/Allgs Chart Reviewed, Consent Obtained/Reviewed and Anes Risks/Benef Reviewed Patient Risk: Intermediate Procedure Risk: Intermediate Assessment/Block/Sedation in SS: Assess/Block/Sedation-SS Anesthetic Plan Anesthetic Plan: GA Disposition: Standard PACU
[2023-11-08 14:25] LABS: Hemoglobin 11.7 g/dl (12.0-16.0); Mean Corpuscular HGB Conc 34.4 g/dl (31.0-35.0); Mean Corpuscular Hemoglobin 30.3 pg (27.0-33.0); Mean Corpuscular Volume 88.1 fL (80.0-98.0); Mean Platelet Volume 9.2 fL (9.4-12.3); Platelet Count 261 X10*3/uL (160-400); Red Blood Count 3.86 X10*6/uL (4.20-5.50); Red Cell Distribution Width 12.6 % (11.0-16.0); White Blood Count 4.3 X10*3/uL (4.8-10.8)
[2023-11-08 15:10] LABS: Anion Gap 12 (12-20); Blood Urea Nitrogen 10 mg/dL (9-16); Calcium 9.2 mg/dL (8.4-10.2); Carbon Dioxide 26 mmol/L (22-29); Chloride 105 mmol/L (96-108); Creatinine Clr Calc Pharmacy 90.5; Estimated Glomerular Filt Rate > 60; Glucose Random 100 mg/dL (60-115); Potassium 3.6 mmol/L (3.3-5.1); Sodium 139 mmol/L (135-145)
[2023-11-17] VITALS (9 sets, daily range): BP systolic 119–140; BP diastolic 55–76; PULSE 103–136; RESP 14–18; TEMP 36.5–36.6; O2SAT 94–100; BMI 25.2
--- NOTE | ~2023-11-17 | FL_ITS ---
EXAMINATION: XR FLUOROSCOPY WITH IMAGES CLINICAL INFORMATION: Anterior cervical discectomy and fusion (ACDF). COMPARISON: MR cervical spine 10/12/2023, x-ray cervical spine 06/10/2023. TECHNIQUE: Fluoroscopy Supervised By: Dr. Pinedo Fluoroscopy Time: 0.0 minutes Cumulative Dose: 0.867 mGy-cm DAP: 0.0150 Gy-cm2 Images: 2 FINDINGS: Fluoroscopic guidance was provided for procedure. A catheter projects at the level the C5-C6 disc space with ACDF hardware and disc spacer. Please refer to operative report for more detailed evaluation. FL/FL guidance in OR IMPRESSION: Fluoroscopic guidance was provided for procedure.
--- NOTE | 2023-11-17 06:58 | P.HPSUR_ITS ---
Pre-Procedural Eval Section A - 24 Hr Update-Section A only Date of Service: 11/17/23 The patient is an INPATIENT: No Changes since office visit: No Cold of Flu in the past 2 weeks, No New Medical Problems, No Changes in Medication and No Patient answered all questions The patient has been examined within 24 hours of the surgical procedure. The History & Physical has been completed within 30 days and I have reviewed it.: No Section B - Complete if H&P > 30 days Chief Complaint: Radiculopathy, cervical region Allergies: Allergies Allergy/AdvReac Type Severity Reaction Status Date / Time No Known Allergies Allergy Verified 11/08/23 13:03 [No Known Allergies*] Review of Systems Sugical H&P ROS: Negative: Constitution, Cardiovascular, Respiratory, Neurological, Psychiatric, Hem-Onc, Allergic/Immunologic, Gastrointestinal, Genitourinary, Musculoskeletal, Integumentary, Endocrine and Eyes/Ears/ Nose/Throat Exam Surgical H&P Exam: Not Evaluated: HEENT, Not Evaluated: Heart, Not Evaluated: Lungs, Not Evaluated: Extremities, Not Evaluated: Abdomen, Not Evaluated: Skin and Not Evaluated: Neurological Plan Diagnosis/Plan: Unchanged C5-6 anterior cervical diskectomy and fusion Time Spent With Patient Time: Total time managing care of this patient today __9__ minutes.
[2023-11-17 11:36] LABS: UPreg QC Valid YES; Urine Pregnancy NEGATIVE (NEGATIVE)
[2023-11-17] MEDS: Lactated Ringers 1,000 ML 100 ML IVCONT (11:46)
[2023-11-17] MEDS: methocarbamoL 750 MG TABLET PO (11:48)
[2023-11-17] MEDS: Gabapentin 300 MG CAPSULE PO (11:48)
--- NOTE | 2023-11-17 14:47 | P.OP_ITS ---
Operative Note Operative Note Date of Service: 11/17/23 Narrative: Preoperative Diagnosis: Cervical radiculopathy, right side due to a C5-6 disc herniation Procedure: C5-C6 Anterior discectomy, arthrodesis and implantation cage ; C5-6 anterior instrumentation ; local autograft; microscope Informed Consent was obtained for this operation. I have explained the nature, purpose and benefits of the operation. I have discussed the risks and benefit of the operation including possible complications or adverse events with patient/family. Alternative(s) were discussed with the patient with their relative benefits and risks as well as the consequences of not accepting the operation were included in obtaining consent. Surgeon: RASTA LOCO MD, PHD Procedure Assisted By: MILE Hathaway Description of Procedure: This 43-year-old female suffering from a right cervical radiculopathy. An MRI shows a disc herniation compressing the right C6 nerve root. She was offered an anterior diskectomy and fusion of this level. The procedure complications were explained. The patient was consented. The patient was brought to the operating room and endotracheally intubated. The patient was put in supine position with slight extension of the neck. Prep and drape was done followed by timeout. A mid cervical incision was made followed by opening of the platysma. The prevertebral fascia was reached following the natural planes while the physician pediatric physician assistant provided manual retraction. The prevertebral fascia was opened to expose the disc space. A spinal needle was placed in the disk space to confirm the correct level with xray. The longus colli muscles were released bilaterally and a self retaining retractor was inserted. Two [place] pins were placed in the C5-C6 vertebral bodies and distraction was give over the interspace. The discectomy was completed toward the posterior annulus of the disc. The microscope was brought in. The remainder of the discectomy was completed. The posterior ligament was opened and resected to expose the underlying dura. Or disc material was removed from the right C6 foramen. Osteophytes were resected from the body of C5-C6 and saved for autograft. Bilateral foraminotomies were done. The endplates were prepared after which a 6 mm cage filled with autograft was inserted into the disc space. A separate attached plate was locked down with 2 x 12 mm screws as anterior instrumentation. Final x-rays in AP and lateral projection showed a satisfactory position of the implant. The physician pediatric physician assistant took over. The [place] pin was removed. Hemostasis was done. He closed the incision in 2 layers with a 3-0 Vicryl. Steri-Strips used to approximate incision. An OpSite with Tegaderm was used to cover the incision. All sponge and needle counts were correct. Patient was extubated and transported in stable is to recovery room. Anesthesia: General Estimated Blood Loss (ml): 10 Duration of Surgery: 45 min Postoperative Plan: Discharge home Complications: None
--- NOTE | 2023-11-17 15:03 | P.DS_ITS ---
DS: Providers Provider Date of Service: 11/17/23 Primary care physician: Shalonda Calderón MD DS: Summary Time Attestation Discharge coordination time: Less than 30 minutes Quality: Safe Use of Opioids Does Pt have an Active Cancer Diagnosis on the Problem List?: No Quality: Stroke Does the patient have a stroke diagnosis?: No Physical Exam Vital Signs: Vital Signs: Last Vital Signs Temp 97.9 F 11/17/23 11:49 Pulse 106 H 11/17/23 11:49 Resp 18 11/17/23 11:49 BP 132/75 11/17/23 11:49 Pulse Ox 100 11/17/23 11:49 O2 Del Method Room Air 11/17/23 11:49 BMI result Body Mass Index 25.2 DS: Data Data Completed and Pending Labs on day of discharge: Laboratory Results - last 24 hr 11/17/23 11:27 Urine Test NEGATIVE Discharge Plan Discharge Patient Disposition: Home, Self-Care Referrals: Shalonda Lugo MD [Primary Care Provider] - 1 Week Discharge Medications: New oxycodone 5 mg tablet 5 mg PO Q6H PRN (Reason: severe pain (scale score 7-10)) Qty: 30 0RF Rx Instructions: Partial Fill upon patient request. Continued drospirenone-ethinyl estradiol 3-0.02 mg tablet 1 tab PO DAILY acetaminophen 325 mg tablet 650 mg PO Q6H PRN (Reason: pain) gabapentin 300 mg capsule 300 mg PO TID famotidine [Acid Building Drafting Officer (famotidine)] 20 mg tablet 20 mg PO BID zolpidem [Ambien] 10 mg tablet 10 mg PO BEDTIME PRN (Reason: Insomnia) diclofenac sodium 1 % gel 4 g topical QID 30 Days Qty: 100 6RF Rx Instructions: apply 4grams to affected area four times a day as needed Discharge Orders: Discharge Order (Routine); Ordered 11/17/23 Ordered By: Rusty Ray Diet: Advance to usual diet Activity on Discharge: As tolerated Activity Restrictions/Additional Instructions: After your spinal surgery we ask you to observe the following restrictions/guidelines: Activity: It is normal to feel some discomfort as you increase your activity, but that will improve with time. We ask you avoid heavy lifting or activities that cause pain. As a general rule, 8lbs is a safe limit for lifting right after surgery. Walk as much as you feel comfortable but not to exhaustion. You will feel extra tired the first few days after surgery. Stay well hydrated. It is OK to walk up and down stairs You may return to driving when you are off narcotics (such as vicodin, oxycodone, dilaudid, etc), and you are back to normal functional capacity. If you have any concerns please check with office before driving. Return to work is specific to each patient and each surgery, so please speak w ith your doctor/PA at first follow up. Please bring paperwork such as FMLA at that time if you need it filled out. Medications: We will give you a short supply of narcotics after surgery (usually one weeks worth). If you need more please call the office but do not use more than prescribed. You will need to give our office 48 hours notice if you need narcotics refilled and we do not fill narcotics on weekends or evenings. If you are on a narcotic, it is a good idea to take a stool softener such as colace or senna to avoid constipation If you take blood thinner such as aspirin, Plavix, Coumadin, Effient, Eliquis etc for conditions such as Afib, DVT, Pulmonary embolus, coronary disease, stents etc please speak with your surgeon about specific details as to when you can resume these medications. You can resume NSAIDs on post op day 1 (eg: Motrin, Naproxen, etc). Follow up: Please call the office, , after surgery to arrange a 3 w naknek follow up for wound check. Wound Care: You may remove your dressing on the first day after surgery. ?You may ?leave open to air. Please do not remove the steri strips underneath. they will fall off on their own in one week. IT IS NORMAL FOR THE WOUND TO OOZE OR BE BLOODY FOR A FEW DAYS AFTER SURGERY. ?IF THIS HAPPENS JUST PLACE NEW DRESSING OVER IT TO AVOID STAINING CLOTHES. You may shower on post op day # 1 We ask that you do not let the water soak the wound. If it does get wet, just towel dry lightly. Please do not scrub your incision or place any type of chemical/ointment on the wound. No tub baths, pools or jacuzzis for one month. If you have any leaking or redness from your wound, or fevers, please call the office.
== END 2023-11-17 17:13 | disposition home or self-care (01) ==
PROVIDERS: Nurse Practitioner; PCP Student in an Organized Health Care Education/Training Program; Visit Provider Neurological Surgery
PROC: (CPT 22551; principal; 2023-11-17 14:30)
DX: M50.122 Cervical disc disorder at C5-C6 level with radiculopathy (principal); Z79.899 Other long term (current) drug therapy
CPT/HCPCS: 22551; 22853; 20936; 22845; 36415; 80048; 81025; 85027; 93005; C1713; J0131; J0690; J1100; J1170; J2250; J2371; J2405; J2704; J3010; L8699

== ENCOUNTER → 2023-11-17 11:18 | Outpatient (BNV) | payer MEDICAID, SELFPAY | PROVIDERS: PCP Student in an Organized Health Care Education/Training Program; Visit Provider Neurological Surgery | DX: M54.12 Radiculopathy, cervical region (principal) | CPT/HCPCS: 20936; 22551; 22845; 22853; 99499 ==

== ENCOUNTER 2023-12-08 10:27 | Outpatient (AMB) | payer MEDICAID, SELFPAY ==
--- NOTE | 2023-12-08 10:32 | A.SPINEOV_ITS ---
Intake Intake Visit Reasons: 1st post op Intake Note: Ms. Espinosa is here today for her 1st post-op visit. Marine Surveyor Required: No Allergies No Known Allergies [No Known Allergies*] Allergy (Verified 11/17/23 11:35) Assessment & Plan Assessment & Plan (1) S/P cervical spinal fusion: Code(s): Z98.1 - Arthrodesis status Plan Procedure: C5-C6 ACDF Ines comes in today for her 1st postoperative visit. She unfortunately reports that she continues to be in quite a deal of pain. She states that she still has her right-sided radiculopathy and has posterior neck pain. Unfortunately, she has not been taking her oxycodone as she states that it keeps her awake at night and she does not like how it makes her feel. She is currently on gabapentin through her primary care physician, and has been taking daily tylenol. She is able to complete all of her ADLs and does not have any other issues regarding her surgery. No new neurological deficits. Mobility is intact. Sensation grossly intact. Patient is able to ambulate well, rises from a seated position without difficulty. Incision site is closed, well healing, with no signs of drainage. Patient does report some waxing / waning pain near her inferior liver border. I encouraged the patient to call her primary care physician whom she saw yesterday and informed them of her inferior liver border pain so they can evaluate her for this issue. She agrees to do this today. I will also be sending in a prescription of Robaxin for muscle relief for the patient as she is having trouble taking her oxycodone. We will follow-up with the patient in 6 weeks for his 2nd postoperative visit. At that time we will get x-rays to review with the patient. Rusty Pinedo MD,PhD [facility] Medications: New methocarbamol 750 mg PO Q8H 30 tabs 0RF muscle spasms Coding Level of Care Code Global (67798) Diagnoses S/P cervical spinal fusion Z98.1
== END 2023-12-08 10:44 | disposition home or self-care (01) ==
PROVIDERS: PCP Student in an Organized Health Care Education/Training Program; Visit Provider Physician Assistant
DX: Z98.1 Arthrodesis status (principal)
CPT/HCPCS: 99024

== ENCOUNTER → 2023-12-08 10:27 | Outpatient (BNVA) | payer MEDICAID, SELFPAY | PROVIDERS: PCP Student in an Organized Health Care Education/Training Program; Visit Provider Physician Assistant | DX: Z47.89 Encounter for other orthopedic aftercare (principal); Z98.1 Arthrodesis status | CPT/HCPCS: 99212 ==

== ENCOUNTER 2024-01-18 09:32 | Outpatient (REF) | payer MEDICAID, SELFPAY | END 2024-01-18 09:33 | disposition home or self-care (01) | LOC: HO.HOSX 09:32 | PROVIDERS: Visit Provider Physician Assistant | DX: Z13.89 Encounter for screening for other disorder (principal) ==

== ENCOUNTER 2024-01-19 09:32 | Outpatient (REF) | payer MEDICAID, SELFPAY ==
--- NOTE | ~2024-01-19 | XR_ITS ---
EXAMINATION: XR cervical spine 4V CLINICAL INFORMATION: Arthrodesis status COMPARISON: Cervical spine radiographs 06/10/2023 TECHNIQUE: 4 views of the cervical spine were obtained. FINDINGS: The cervical spine is visualized to the level of C7-T1 on the lateral view. Vertebral body alignment is maintained. No instability on flexion extension views. Status post C5-C6 anterior cervical discectomy and spinal fusion. No evidence of hardware fracture or complication. No definite osseous fusion noted across the vertebral bodies. Vertebral body height is maintained. Disc space heights are otherwise maintained. No prevertebral soft tissue swelling. XR/XR cervical spine 4V IMPRESSION: Status post C5-C6 anterior cervical discectomy and spinal fusion. No evidence of hardware fracture or complication. No instability on flexion extension views.
== END 2024-01-19 09:33 | disposition home or self-care (01) ==
LOC: HO.HOSX 09:32
PROVIDERS: Visit Provider Physician Assistant
DX: Z98.1 Arthrodesis status (principal)
CPT/HCPCS: 72050

== ENCOUNTER 2024-01-19 09:53 | Outpatient (REF) | payer MEDICAID, SELFPAY | END 2024-01-19 09:54 | disposition home or self-care (01) | LOC: CF 09:53 | PROVIDERS: PCP Student in an Organized Health Care Education/Training Program; Visit Provider Physician Assistant | DX: Z98.1 Arthrodesis status (principal) | CPT/HCPCS: 72050; 99212 ==

== ENCOUNTER 2024-01-19 09:53 | Outpatient (AMB) | payer MEDICAID, SELFPAY ==
--- NOTE | 2024-01-19 10:23 | HO.SPINEOV ---
Intake Intake Visit Reasons: 2nd post op with xrays Intake Note: is here for 2nd post-op with xrays Loss Prevention And Safety Manager Required: No Allergies No Known Allergies [No Known Allergies*] Allergy (Verified 11/17/23 11:35) Assessment & Plan Assessment & Plan (1) S/P cervical spinal fusion: Code(s): Z98.1 - Arthrodesis status Plan Procedure: C5-C6 ACDF Ines comes in today for her 2nd postoperative visit. She states that the pain she previously described which was reported as continuation of posterior neck pain and right-sided upper extremity radiculopathy continues to persist, however she describes in a different distribution that was previously described pre-operatively. Thankfully she does report that it feels as though it is improving at a very slow rate. She states that the pain shoots down her triceps and into her 2nd and 3rd phalanges on the right. She previously reported the pain pre-operatively shot through her deltoid, into her forearm, and terminated in her right thumb. We reviewed her x-ray imaging from today and there is no significant change in instrumentation placement, everything looks great. Of note, Ines also has had an EMG in the past of her bilateral upper extremities which reported no carpal tunnel or cubital tunnel per her report. Strength is 4/5 in RUE (pain limiting) and 5/5 in LUE. Patient is able to ambulate well, rises from a seated position without difficulty. Incision site is closed, well healed, with no signs of drainage. Due to a newly described radiculopathy which shoots both into the triceps in the 2nd and 3rd phalanges on right, I would like to obtain a repeat MRI to evaluate for a adjacent segment C6-7 or C7-8 nerve root impingement which would match this dermatomal distribution. Rusty Pinedo MD,PhD [facility] Orders: Orders MR cervical spine wo con Today Z98.1 - Arthrodesis status Coding Level of Care Code Global (95430) Diagnoses S/P cervical spinal fusion Z98.1
== END 2024-01-19 10:33 | disposition home or self-care (01) ==
PROVIDERS: PCP Student in an Organized Health Care Education/Training Program; Visit Provider Physician Assistant
DX: Z98.1 Arthrodesis status (principal)
CPT/HCPCS: 99024

== ENCOUNTER 2024-01-28 15:58 | Outpatient (REF) | payer MEDICAID, SELFPAY ==
--- NOTE | ~2024-01-28 | MR_ITS ---
EXAMINATION: MR CERVICAL SPINE WITHOUT CONTRAST CLINICAL INFORMATION: 43-year-old with history of previous C5-C6 arthrodesis, with pain in the cervical spine status post surgery without relief. COMPARISON: 01/19/2024 x-rays. TECHNIQUE: MRI of the cervical spine was obtained using routine sequences without contrast. Technical note: Limited study due to extensive ferromagnetic artifact from metallic hardware at C5-C6. FINDINGS: ALIGNMENT: Normal. CRANIOCERVICAL JUNCTION/C1-C2 ARTICULATIONS: The atlantooccipital joints are intact and aligned. There is mild retrolisthesis at the left C1-C2 facet joint, likely reflecting head rotation. VISUALIZED INTRACRANIAL STRUCTURES: Within normal limits. VERTEBRAL BODIES: Partially obscured at C4, C5, C6 and C7 related to a large amount of metallic artifact. Not well evaluated at these levels. Otherwise normal vertebral body heights. DISC SPACES AND ENDPLATES: Extensively obscured at C5-C6 and partially obscured at C3-C4, C4-C5 and C6-C7. Not well evaluated. BONE MARROW: Partially obscured. No suspicious marrow-replacing process or bone marrow edema within the limitations of the exam. C2-C3: No disc herniation or canal stenosis. No significant DJD or neural foraminal stenosis. C3-C4: No disc herniation or canal stenosis. No significant DJD or neural foraminal stenosis. C4-C5: Partially obscured by artifact. No significant canal or neural foraminal stenosis. Artifact obscures the ventral epidural space at this level. C5-C6: Extensively partially obscured by metallic artifact. The canal is grossly patent but is not seen anteriorly. The neural foramina are not severely stenotic and are partially obscured. C6-C7: No disc herniation or canal stenosis. No significant DJD or neural foraminal stenosis. C7-T1: No disc herniation or canal stenosis. No significant DJD or neural foraminal stenosis. SPINAL CORD: Partially obscured by artifact at C5-C6. Otherwise the cervical and visualized upper thoracic spinal cord is normal in morphology, caliber and signal intensity. EXTRACRANIAL SOFT TISSUES: Signal voids are seen within the visualized major neck vessels. MR/MR cervical spine wo con IMPRESSION: 1. Limited study due to extensive ferromagnetic artifact between C4 and C7 inclusive, as described above. 2. No disc herniations are identified and there is no significant spinal canal or neural foraminal stenosis throughout the cervical spine within the limitations of the study. 3. See above for details. If clinically warranted, CT myelography may be of additional value.
== END 2024-01-28 15:59 | disposition home or self-care (01) ==
LOC: HO.MRI 15:58
PROVIDERS: PCP Student in an Organized Health Care Education/Training Program; Visit Provider Physician Assistant
DX: Z98.1 Arthrodesis status (principal)
CPT/HCPCS: 72141

== ENCOUNTER 2024-02-16 09:55 | Outpatient (AMB) | payer MEDICAID, SELFPAY ==
--- NOTE | 2024-02-16 09:56 | HO.SPINEOV ---
Intake Visit Reasons: MRI follow up Intake Note: Ms. Espinosa is here to F/u on MRI. Hot Top Liner Required: No Allergies No Known Allergies [No Known Allergies*] Allergy (Verified 11/17/23 11:35) Assessment & Plan Assessment & Plan (1) Cervical radiculitis: Code(s): M54.12 - Radiculopathy, cervical region Category: Medical Plan Ines is a pleasant 43 y/o female who comes in today for a subsequent follow up visit after a C5-C6 ACDF. Again she is reporting shooting pain down her triceps and into her 2nd and 3rd phalanges on the right. She reports the left side now feels slightly affected as well. I ordered her a cervical MRI to evaluate for any new impingement or adjacent segment issues. Unfortunately, the MRIs significantly confounded by artifact. It is nearly impossible to see C3-7. I am able to see a few frames of the spinal cord itself, which does not show any new acute impingement, as far as I can tell. Again this study is significantly limited. I will be reviewing it with Dr. Pinedo later today. On examination today she has a wrist brace on her right hand which he states is for comfort. She has 4/5 strength diffusely on the right and 5/5 strength on the left. (-) Spence's bilaterally. (-) clonus bilaterally. (-) Tinel's at the wrist bilaterally. (+) Lhermitte's sign. MRI imaging review his of low utility. It is significantly confounded by artifact. The radiologist read is reassuring, but I would like to see the actual instrumentation / nerve roots myself in a clearer view that is not obstructed. I will be ordering the patient a CT myelogram, to rule out nerve root impingement, which could be causing this newer radiculopathy. Total amount of time spent in this visit was 20 minutes in discussion of symptoms, MRI imaging results and subsequent plan of care. Rusty Pinedo MD,PhD [facility] Coding Level of Care Code Est Pt Level 3 (45756) Diagnoses Cervical radiculitis M54.12
== END 2024-02-16 10:18 | disposition home or self-care (01) ==
PROVIDERS: PCP Student in an Organized Health Care Education/Training Program; Visit Provider Physician Assistant
DX: M54.12 Radiculopathy, cervical region (principal)
CPT/HCPCS: 99213

== ENCOUNTER → 2024-02-16 09:55 | Outpatient (BNVA) | payer MEDICAID, SELFPAY | PROVIDERS: PCP Student in an Organized Health Care Education/Training Program; Visit Provider Physician Assistant | DX: M54.12 Radiculopathy, cervical region (principal) | CPT/HCPCS: 99212 ==

== ENCOUNTER 2024-02-24 08:18 | Outpatient (REF) | payer MEDICAID, SELFPAY ==
[2024-02-24 08:56] LABS: Hemoglobin 12.9 g/dl (12.0-16.0); Mean Corpuscular HGB Conc 34.9 g/dl (31.0-35.0); Mean Corpuscular Hemoglobin 30.2 pg (27.0-33.0); Mean Corpuscular Volume 86.7 fL (80.0-98.0); PLT CLUMP 1; Red Blood Count 4.27 X10*6/uL (4.20-5.50); Red Cell Distribution Width 12.5 % (11.0-16.0)
[2024-02-24 09:07] LABS: Estimated Average Glucose 108 mg/dL; Hemoglobin A1c % 5.4 % (<6.0)
[2024-02-24 09:33] LABS: Alanine Aminotransferase 11 U/L (0-31); Albumin Level 4.1 g/dL (3.5-5.0); Alkaline Phosphatase 60 U/L (39-117); Anion Gap 14 (12-20); Aspartate Amino Transferase 12 U/L (5-31); Bilirubin Total 0.3 mg/dL (0.0-1.0); Blood Urea Nitrogen 10 mg/dL (9-16); Calcium 9.2 mg/dL (8.4-10.2); Carbon Dioxide 23 mmol/L (22-29); Chloride 104 mmol/L (96-108); Cholesterol 202 mg/dL (<200); Estimated Glomerular Filt Rate > 60; Glucose Random 100 mg/dL (60-115); HDL Cholesterol 89 mg/dL (>40); LDL Cholesterol Calculated 76 mg/dL (<100); Potassium 3.6 mmol/L (3.3-5.1); Sodium 137 mmol/L (135-145); Triglycerides 188 mg/dL (<150)
[2024-02-24 09:50] LABS: TSH reflex Free T4 1.67 uIU/mL (0.32-4.0); Vitamin D 25-OH Total 25.4 ng/mL (>30); White Blood Count 3.9 X10*3/uL (4.8-10.8)
[2024-02-24 09:51] LABS: HBS Num1 459.93 mIU/mL (0-7.99); HBsAGNum1 0.21 S/CO (0.00-0.99); HIV AB/AG Nonreactive (Nonreactive); HIV Num 1 0.04 S/CO (0.00-0.99); Hepatitis B Core Antibody Nonreactive (Nonreactive); Hepatitis B Surface Antigen Negative (Negative); Syphilis Screen Nonreactive (Nonreactive); ~HepC Num1 0.04 S/CO (0.00-0.79); ~Hepatitis B Surface Antibody REACTIVE (Nonreactive); ~Hepatitis C Antibody Nonreactive (Nonreactive)
[2024-02-24 11:11] LABS: Folate 10.9 ng/mL (> or = 4.0); Vitamin B12 183 pg/mL (200-900)
[2024-02-24 12:02] LABS: CT PCR NOT DETECTED (Not Detect.); NG PCR NOT DETECTED (Not Detect.)
[2024-02-29 12:38] LABS: Parietal Cell Antibody <=20.0 Unit (<=20.0)
[2024-02-29 19:19] LABS: Intrinsic Factor Antibodies Negative (Negative)
== END 2024-02-24 08:19 | disposition home or self-care (01) ==
LOC: HO.LAB 08:18
PROVIDERS: PCP Student in an Organized Health Care Education/Training Program; Visit Provider Student in an Organized Health Care Education/Training Program
DX: Z00.00 Encounter for general adult medical examination without abnormal findings (principal); Z11.4 Encounter for screening for human immunodeficiency virus [HIV]; Z11.3 Encounter for screening for infections with a predominantly sexual mode of transmission
CPT/HCPCS: 0353U; 80053; 80061; 82306; 82607; 82746; 83036; 83516; 84443; 85027; 86340; 86704; 86706; 86780; 86803; 87340; 87389

== ENCOUNTER 2024-03-23 09:26 | Day surgery (SDC) | payer MEDICAID, SELFPAY ==
[2024-03-23] VITALS (7 sets, daily range): BP systolic 108–131; BP diastolic 63–80; PULSE 86–92; RESP 16; O2SAT 99; BMI 26.5
--- NOTE | ~2024-03-23 | FL_ITS ---
FLUOROSCOPIC CERVICAL MYELOGRAM INDICATION: Cervical radiculopathy. History of C5-C6 arthrodesis. Limited MRI findings due to ferromagnetic artifact. TECHNIQUE/FINDINGS: Risks and benefits and possible complications were discussed with the patient and the consent form was signed. Patient was placed prone on the fluoroscopy table. The back was prepped and draped in routine sterile fashion. Betadine was used as a skin antiseptic. Utilizing fluoroscopic guidance, the L3-4 interlaminar space was accessed with a 22 gauge Nereyda spinal needle and clear CSF fluid was obtained. 10 mL of Isovue-M 300 was then injected through the needle and contrast was observed entering the thecal sac. The fluoroscopic table was then tilted in the Trendelenburg position, and contrast was observed flowing upwards to the cervical spine. The needle was removed without immediate complications. The patient was then transferred to CT for post myelographic imaging. Total fluoroscopy time: 2.13 min DAP: 129 dGy M/2 Images: 1 cine with 6 spot images FL/FL myelogram spine cervical IMPRESSION: Successful fluoroscopic guided intrathecal instillation of Isovue-M 300. Patient will undergo subsequent CT cervical myelographic imaging. This procedure was performed by Michael Peck PA-C and supervised by Dr. Carter.
--- NOTE | ~2024-03-23 | CT_ITS ---
EXAMINATION: CT CERVICAL SPINE WITHOUT CONTRAST CLINICAL INFORMATION: Cervical radiculopathy COMPARISON: MRI cervical spine on 01/28/2024 TECHNIQUE: Multiple 2.0 mm axial images were obtained from base of skull to T1 levels following intrathecal injection of 10 mL of Isovue-M 300. Sagittal and coronal 2.0 mm bone window images were reconstructed from axial image data. This CT examination was performed using dose optimization techniques as appropriate, variously including the following: *Automated exposure control *Adjustment of mA and/or kV according to patient size (this includes techniques or standardized protocols for targeted exams where dose is matched to indication/reason for exam; i.e. extremities or head) *Use of iterative reconstruction technique DLP: 344 mGy-cm FINDINGS: There is normal filling of the lower cranial cerebral spinal fluid space in the thecal sac with intrathecal contrast. The visualized cervical spinal cord is normal in position and caliber. No impingement or displacement is seen. The thecal sac is intact without effacement. C1/C2: Bony structures are intact with normal alignment. There is no spinal stenosis. C2/C3: Bony structures are intact with normal alignment. There is no spinal stenosis. Bilateral C2/C3 neuroforamina are patent. Bilateral apophyseal joints are intact with normal alignment. C3/C4: Bony structures are intact with normal alignment. There is no spinal stenosis. Bilateral C3/C4 neuroforamina are patent. Bilateral apophyseal joints are intact with normal alignment. C4/C5: Bony structures are intact with minimal kyphosis. There is no spinal stenosis. Bilateral C4/C5 neuroforamina are patent. Bilateral apophyseal joints are intact with normal alignment. C5/C6: Status post ACDF, fixation with integrated interbody fixation device. Bony structures are intact with normal alignment. There is no spinal stenosis. Bilateral C5/C6 neuroforamina are patent. Bilateral apophyseal joints are intact with normal alignment. C6/C7: Bony structures are intact with normal alignment. There is no spinal stenosis. Bilateral C6/C7 neuroforamina are patent. Bilateral apophyseal joints are intact with normal alignment. C7/T1: Bony structures are intact with normal alignment. There is no spinal stenosis. Bilateral C7/T1 neuroforamina are patent. Bilateral apophyseal joints are intact with normal alignment. CT/CT cervical spine wo IV con IMPRESSION: 1. Status post ACDF, fixation with interbody fixation device at C5/C6. 2. No evidence of spinal stenosis or neural foraminal narrowing.
[2024-03-23] MEDS: Acetaminophen 325 MG TABLET 650 MG PO (12:24)
== END 2024-03-23 13:22 | disposition home or self-care (01) ==
PROVIDERS: Radiology Vascular & Interventional Radiology; PCP Student in an Organized Health Care Education/Training Program; Visit Provider Physician Assistant
DX: M54.12 Radiculopathy, cervical region (principal); Z98.1 Arthrodesis status
CPT/HCPCS: 62302; 72125; Q9967

== ENCOUNTER → 2024-03-23 11:03 | Outpatient (BNV) | payer MEDICAID, SELFPAY | PROVIDERS: PCP Student in an Organized Health Care Education/Training Program; Visit Provider Physician Assistant Surgical | DX: M54.12 Radiculopathy, cervical region (principal) | CPT/HCPCS: 62302 ==

== ENCOUNTER 2024-03-27 14:24 | Outpatient (AMB) | payer MEDICAID, SELFPAY ==
--- NOTE | 2024-03-27 14:25 | HO.SPINEOV ---
Intake Visit Reasons: Myelogram follow up Intake Note: Ms. Espinosa is here today to F/u on Myelogram Broadcast Operations Manager Required: No Allergies No Known Allergies [No Known Allergies*] Allergy (Verified 03/23/24 09:45) Assessment & Plan Assessment & Plan (1) S/P cervical spinal fusion: Code(s): Z98.1 - Arthrodesis status Category: Surgical Plan Procedure:C5-6 ACDF Ines is a pleasant 43-year-old female who comes in today for a subsequent evaluation after a C5-6 ACDF completed roughly 4 months ago in November. To recap she reports continuation of symptoms despite surgical attempts to solve her cervical radiculopathy. We have tried a few different medications, had a repeat MRI completed, and most recently had a CT myelogram completed because the MRI had significant artifact that confounded the visualization of the spinal cord. She is very distraught regarding her continued symptoms, and unfortunately thus far her imaging has not showed any evidence of continued or subsequent impingement neurologically in the cervical spine. Her previous imaging has been reviewed with the attending neurosurgeon Dr. Pinedo who agrees. Her CT myelogram has not yet been read by Radiology, but there does not appear to be any significant impingement when compared to MRI imaging. I would like to send Ines for a course of physical therapy, as her main complaint at this time is posterior neck pain. It is possible that her symptoms are more musculoskeletal at this time. She would like to follow up with Dr. Pinedo after this to discuss either her progress with PT, or lack there of, and what the next steps regarding her continued pain would be. I will call her after her CT myelogram is read by Radiology if there is anything concerning reported. Rusty Pinedo MD,PhD [facility] Coding Level of Care Code Global (27448) Diagnoses S/P cervical spinal fusion Z98.1
== END 2024-03-27 14:36 | disposition home or self-care (01) ==
PROVIDERS: PCP Student in an Organized Health Care Education/Training Program; Visit Provider Physician Assistant
DX: Z98.1 Arthrodesis status (principal)
CPT/HCPCS: 99213

== ENCOUNTER → 2024-03-27 14:24 | Outpatient (BNVA) | payer MEDICAID, SELFPAY | PROVIDERS: PCP Student in an Organized Health Care Education/Training Program; Visit Provider Physician Assistant | DX: Z98.1 Arthrodesis status (principal) | CPT/HCPCS: 99212 ==

== ENCOUNTER → 2024-04-04 10:55 | Outpatient (REF) | payer MEDICAID, SELFPAY ==
--- NOTE | 2024-04-04 10:58 | CA_ITS ---
Transthoracic Echocardiogram Patient (Last, First, Middle): Ines Espinosa, Gender: Female Date of : 1980 Age: 43 Procedure Date: 04/04/2024 Procedure Type: Transthoracic Echocardiogram Location: OP Height: 157.48 cm Weight: 58.06 kg BSA: 1.58 m2 Heart Rate: 106 bpm BP: 132 / 72 mmHg Monument Carver: SB Referring MD: Shalonda Calderón MD Fish And Wildlife Technician: Vince Nunez MD Symptoms: CHRONIC SINUS TACHYCARDIA R00.0 Study Quality: Adequate ECG Rhythm: Sinus Tachycardia Conclusions: - Essentially normal study Findings Left Ventricle Normal left ventricular size, thickness, and systolic function. The visually estimated ejection fraction is between 60-65%. Spectral Doppler is indicative of a normal filling pattern. Right Ventricle Normal right ventricular cavity size and systolic function. Atria Both atria are normal in size. There is no evidence of interatrial shunt. Aortic Valve Normal aortic valve structure and function. There is no aortic valve stenosis. There is no aortic valve regurgitation. Mitral Valve Normal mitral valve structure and function. There is trace mitral valve regurgitation. There is no mitral valve stenosis. Pulmonic Valve The pulmonic valve is likely normal. Tricuspid Valve Normal tricuspid valve structure. There is trace tricuspid valve regurgitation. The right ventricular systolic pressure is normal. The right ventricular systolic pressure is 31 mmHg. Normal right atrial pressure. There is no evidence of pulmonary hypertension. Great Vessels All visible segments of the aorta are normal in size. The pulmonary artery was not well visualized. Venous The inferior vena cava is normal in size and collapses greater than 50% with inspiration. Pericardium/Pleural There is no evidence of pericardial effusion. Prior Study Comparison No prior study available for comparison. Measurements 2D Linear Measurements IVSd: 0.85 0.6-0.9/0.6-1.0 cm LVIDd: 4.12 3.9-5.3/4.2-5.9 cm LVIDd Index: 2.61 2.4-3.2/2.2-3.1 cm/m2 LVIDs: 2.99 2.0-3.6 cm LVPWd: 0.87 0.7-1.1 cm LA Diam: 3.40 2.7-3.8/3.0-4.0 cm LAIDs Index: 2.15 1.5-2.3 cm/m2 LV Mass: 133.77 67-162/88-224 g LV Mass Index: 84.67 43-95/49-115 g/m2 LVOT Diam: 1.90 3.0+(-)1.3 cm 2D Systolic Function EF 4C: 64.50 >55% EF 2C: 62.60 >55% EF BiP: 63.60 >55% Mitral Valve MV Pk E: 1.01 MV PK A: 0.88 MV Decel Time: 123.00 E/A: 1.10 E'Lateral: 11.30 E'Medial: 7.94 E/E' Med: 12.70 E/E' Lat: 8.90 PHT: 36.00 MVA PHT: 6.11 Decel [place]: 8.20 Aortic Valve AoV Pk Иван: 1.64 AoV Pk Grad: 11.00 DARNELL: 2.36 LVOT LVOT Pk Иван: 1.37 LVOT Mn Иван: 1.03 LVOT VTI: 0.28 LVOT Pk Grad: 8.00 LVOT Mn Grad: 5.00 LVOT Diam: 1.90 LVOT Area: 2.84 Diastolic Function MV Pk E: 1.01 MV Pk A: 0.88 E/A: 1.10 E'Medial: 7.94 E/E' Med: 12.70 E' Laterial: 11.30 E/E' Lat: 8.90 Right Ventricle TAPSE (mm): 29.60 TVS' Иван: 15.00 Tricuspid Valve TR Pk Иван: 2.65 TR Pk Grad: 28.00 RA Press: 3.00 RVSP: 31.00 Great Vessels Aorta Sinus of Valsalva: 2.60 2.0-3.5 cm Ao Asc: 2.60 2.1-3.4 cm Pulmonary Veins Pulm Vein S/D 1.40 Pulmonary Valve PV Pk Иван: 1.47 Peak PV Grad: 9.00 Updated in Other Vendor System with Status of Final Vince Nunez MD electronically signed on 04/04/2024 12:04:48 PM with status of Final
== END ==
LOC: HO.CARD 10:55
PROVIDERS: PCP Student in an Organized Health Care Education/Training Program; Visit Provider Student in an Organized Health Care Education/Training Program
DX: R00.0 Tachycardia, unspecified (principal)
CPT/HCPCS: 93306

== ENCOUNTER → 2024-04-04 10:58 | Outpatient (BNV) | payer MEDICAID, SELFPAY | PROVIDERS: PCP Student in an Organized Health Care Education/Training Program; Visit Provider Internal Medicine Cardiovascular Disease | DX: I36.1 Nonrheumatic tricuspid (valve) insufficiency (principal) | CPT/HCPCS: 93306 ==

== ENCOUNTER 2024-04-24 09:00 | Outpatient (REF) | payer MEDICAID, SELFPAY | END 2024-04-24 09:01 | disposition home or self-care (01) | LOC: HO.MAMMO 09:00 | PROVIDERS: PCP Student in an Organized Health Care Education/Training Program; Visit Provider Student in an Organized Health Care Education/Training Program | DX: Z12.31 Encounter for screening mammogram for malignant neoplasm of breast (principal) | CPT/HCPCS: 77063; 77067 ==

== ENCOUNTER → 2024-04-24 09:15 | Outpatient (BNV) | payer MEDICAID, SELFPAY | PROVIDERS: PCP Student in an Organized Health Care Education/Training Program; Visit Provider Radiology Diagnostic Radiology | DX: Z12.31 Encounter for screening mammogram for malignant neoplasm of breast (principal) | CPT/HCPCS: 77063; 77067 ==

== ENCOUNTER 2024-05-28 11:00 | Outpatient (RCR) | payer MEDICAID, SELFPAY ==
--- NOTE | 2024-05-02 15:02 | MHC.PT.EP ---
[facility] [place] Office [place] Office [place] Office [address] Kanika Lopez [address] [phone] F: [phone] F: [phone] F: [phone] F: [phone] Physical Therapy Plan of Care Date of Evaluation: 05/02/24 Date of Surgery: Diagnosis: Cervical spinal fusion Assessment: Pt is a 43 y/o female referred to PT for eval and treat s/p cervical ACDF of C5-C6 on November 18 who reports continuation of cervical pain and R sided radicular symptoms including R arm pain and R hand n/t which is resulting in decreased tolerance for static postures, dressing pullovers, lifting objects of weight, as well as disturbed sleep secondary to decreased cervical and R shoulder ROM, decreased R shoulder, elbow and web applications architect strength, increased cervical tissue tension, guarded R shoulder posture as well as R arm and cervical pain. Pt is deemed an appropriate candidate to receive skilled PT services to address their physical impairments in order to improve their functional ability. Frequency and Duration: The patient will be seen 2 x/wk x 4 wks. Short Term Goals: Initiate home program. Improve baseline pain to < 6/10; initial 8-10/10. Pt will improve R shoulder AROM flexion to at least 130 degrees; initial: 95 degrees. Juvenile Justice Officer Goals: I with home program. Pt will report at most 1/4 disturbed night's sleep; initial: 1/2 disturbed d/t pain Pt will be able to dress pullovers with at most 2/10 difficulty; initial: 8/10. Pt will improve outcome measure by at least 9 points. Treatment Plan: Modalities to reduce pain, spasms and effusion. Manual therapy to restore motion and function. Therapeutic exercise to improve strength and flexibility. Neuromuscular re-education for posture and balance. Therapeutic activities to return to functional activities of daily living. Electronically signed by: Christiano Arvizu PT. Please sign and return to therapist. Thank you for your referral.
--- NOTE | 2024-07-19 11:34 | MHC.PT.DC ---
[facility] [place] Office [place] Office [place] Office [address] Kanika Lopez 140 [facility] [phone] F: [phone] F: [phone] F: [phone] F: [phone] Physical Therapy Discharge Report Diagnosis: Cervical spinal fusion Date of Surgery: 11/17/23 Date of Evaluation: 05/02/24 Date of Discharge: 07/19/24 Treatments to Date: 8 Cancellations to Date: No Shows to Date: Discharge Status: Recommend MD Follow-up Discharge Summary: Although Ines did not attend her final therapy visit she had continued to report that her same symptoms persisted after her surgery. Pt did not participate well in therapy d/t continued high levels of pain, and guarded postures. Therapy found it difficult to progress her plan d/t poor tolerance and poor participation in her gentle program. Electronically signed by: Christiano Arvizu PT. Please sign and return to therapist. Thank you for your referral.
== END 2024-07-19 11:37 | disposition home or self-care (01) ==
LOC: HO.PT 11:00
PROVIDERS: PCP Student in an Organized Health Care Education/Training Program; Visit Provider Physician Assistant
DX: Z98.1 Arthrodesis status (principal)
CPT/HCPCS: 97014; 97110; 97161

== ENCOUNTER 2024-06-13 14:01 | Outpatient (AMB) | payer MEDICAID, SELFPAY ==
--- NOTE | 2024-06-13 14:03 | A.SPINEOV_ITS ---
Intake Visit Reasons: follow up after PT Intake Note: Ms. Espinosa is here today for a F/u after PT. Diesel Power Mechanic Required: No Allergies No Known Allergies [No Known Allergies*] Allergy (Verified 03/23/24 09:45) Assessment & Plan Assessment & Plan (1) S/P cervical spinal fusion: Code(s): Z98.1 - Arthrodesis status Category: Surgical Plan: On 06/13/2024 saw for final follow-up Ines Espinosa. She underwent an anterior diskectomy and fusion C5-C6 for we thought was a C6 radiculopathy. Intraoperatively clear herniated disc was found. Postoperatively, her symptoms did not improve. Subsequent imaging reviewed no spinal cord or nerve compression anymore. Today, she states that she has a constant pain on the whole right side, especially right arm but also her right thorax and breasts. Intermittently, she has painful sensation on the left side as well. On exam, she has normal reflexia. No pathological reflexes. She does report hypersensitivity to touch on her right arm and bilateral legs. I explained to the patient that her current symptomatology can not be explained from a single cervical nerve root. In fact, imaging reviews no ongoing nerve compression anymore. I will refer to Neurology for a further evaluation as there is no surgical cause for her symptomatology. Fredis Pinedo MD, PhD Spine Fellowship Trained Neurosurgeon Director, [facility] (2) Pain syndrome, chronic: Code(s): G89.4 - Chronic pain syndrome Category: Medical Plan: y Orders: Referrals Neurology Referral G89.4 - Chronic pain syndrome Coding Level of Care Code Est Pt Level 2 (52655) Diagnoses S/P cervical spinal fusion Z98.1 Pain syndrome, chronic G89.4
== END 2024-06-13 15:21 | disposition home or self-care (01) ==
PROVIDERS: PCP Student in an Organized Health Care Education/Training Program; Visit Provider Neurological Surgery
DX: Z98.1 Arthrodesis status (principal); G89.4 Chronic pain syndrome
CPT/HCPCS: 99212

== ENCOUNTER → 2024-06-13 14:01 | Outpatient (BNVA) | payer MEDICAID, SELFPAY | PROVIDERS: PCP Student in an Organized Health Care Education/Training Program; Visit Provider Neurological Surgery | DX: G89.4 Chronic pain syndrome (principal); Z98.1 Arthrodesis status | CPT/HCPCS: 99212 ==

== ENCOUNTER 2024-08-24 16:42 | Outpatient (REF) | payer MEDICAID, SELFPAY ==
--- NOTE | ~2024-08-24 | MR_ITS ---
EXAMINATION: MR BRAIN WITHOUT CONTRAST CLINICAL INFORMATION: Chronic pain. COMPARISON: None available. TECHNIQUE: MRI of the brain was obtained using routine sequences without contrast. FINDINGS: No focal restricted diffusion is demonstrated to suggest acute or subacute cerebral ischemia. No evidence of acute or chronic hemorrhagic products on heme-sensitive imaging. Normal parenchymal signal characteristics. The ventricles are normal in morphology and size. No abnormal mass effect. No midline shift. Normal appearance of the pituitary gland. The cerebellar tonsils are mildly low lying, positioned 0.5 cm below the foramen magnum. The CSF space of the foramen magnum is maintained. Normal arterial and venous vascular flow voids are present. Normal, homogeneous marrow signal. Mild mucosal thickening of the paranasal sinuses. No signal abnormalities within the mastoids. MR/MR head/brain wo con IMPRESSION: 1. No acute intracranial abnormalities. 2. Borderline Chiari I formation. 3. No additional MRI abnormalities to explain the patient's symptoms. Electronically signed by: Reji Nicholson DO 09/26/2024 06:19 AM MARISA
== END 2024-08-24 16:43 | disposition home or self-care (01) ==
LOC: HO.MRI 16:42
PROVIDERS: PCP Student in an Organized Health Care Education/Training Program; Visit Provider Psychiatry & Neurology Neurology
DX: G89.29 Other chronic pain (principal)
CPT/HCPCS: 70551

== ENCOUNTER 2024-09-21 07:56 | Outpatient (REF) | payer MEDICAID, SELFPAY ==
[2024-09-21 09:23] LABS: Erythrocyte Sedimentation Rate 7 MM/HR (0-20)
[2024-09-24 17:48] LABS: Lyme Abs Screen <0.90 index
== END 2024-09-21 07:57 | disposition home or self-care (01) ==
LOC: HO.LAB 07:56
PROVIDERS: Absent Provider Psychiatry & Neurology Neurology; PCP Student in an Organized Health Care Education/Training Program; Visit Provider Student in an Organized Health Care Education/Training Program
DX: F45.9 Somatoform disorder, unspecified (principal)
CPT/HCPCS: 36415; 82550; 85652; 86617; 86618

== ENCOUNTER 2024-10-01 11:59 | Outpatient (REF) | payer MEDICAID, SELFPAY ==
[2024-10-01 13:34] LABS: MANUAL DIFF FLAG NO
[2024-10-01 13:45] LABS: Basophils Percent Auto 0.5 % (0-2); Eosinophils Percent Auto 0.5 % (0-4); Hematocrit 35.8 % (37.0-47.0); Hemoglobin 12.4 g/dl (12.0-16.0); Imm Gran Abs Auto 0.01 X10*3/uL (0.00-0.03); Imm Gran Pct Auto 0.2 % (0.0-0.4); Lymphocytes Absolute Auto 1.7 X10*3/uL (1.2-4.9); Lymphocytes Percent Auto 39.5 % (20-40); Mean Corpuscular HGB Conc 34.6 g/dl (31.0-35.0); Mean Corpuscular Hemoglobin 30.6 pg (27.0-33.0); Mean Corpuscular Volume 88.4 fL (80.0-98.0); Mean Platelet Volume 9.5 fL (9.4-12.3); Monocytes Absolute Auto 0.3 X10*3/uL (0.1-1.2); Monocytes Percent Auto 6.4 % (2-11); Neutrophils Absolute Auto 2.3 x10*3/uL (2.0-8.3); Neutrophils Percent Auto 52.9 % (45-73); Platelet Count 221 X10*3/uL (160-400); Red Blood Count 4.05 X10*6/uL (4.20-5.50); Red Cell Distribution Width 12.7 % (11.0-16.0); White Blood Count 4.3 X10*3/uL (4.8-10.8)
[2024-10-01 14:32] LABS: Vitamin B12 405 pg/mL (200-900)
[2024-10-04 14:28] LABS: Intrinsic Factor Antibodies Negative (Negative)
[2024-10-08 13:39] LABS: Parietal Cell Antibody <=20.0 Unit (<=20.0)
== END 2024-10-01 12:00 | disposition home or self-care (01) ==
LOC: HO.HHCL 11:59
PROVIDERS: Visit Provider Student in an Organized Health Care Education/Training Program
DX: E53.8 Deficiency of other specified B group vitamins (principal); R79.89 Other specified abnormal findings of blood chemistry
CPT/HCPCS: 36415; 82607; 83516; 85025; 86340

== ENCOUNTER 2025-03-04 10:47 | Outpatient (AMB) | payer MEDICAID, SELFPAY ==
[2025-03-04 10:57] VITALS: BP 120/68; PULSE 99; BMI 26.3
--- NOTE | 2025-03-04 10:57 | MHC.OFFVIS ---
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 Allergies No Known Allergies [No Known Allergies*] Allergy (Verified 03/23/24 09:45) Medication List - Last Reconciled 03/04/25 by Cheko Lehman MD acetaminophen 500 mg PO Q6H PRN carbamazepine 200 mg PO BEDTIME cholecalciferol (vitamin D3) 25 mcg PO DAILY cyanocobalamin (vitamin B-12) 1,000 mcg PO DAILY dicyclomine 10 - 20 mg PO Q6H PRN drospirenone (contraceptive) (Slynd) 4 mg PO DAILY drospirenone-ethinyl estradiol 3-0.02 mg 1 tab PO DAILY famotidine (Acid Perinatal Tech (famotidine)) 20 mg PO BID hydroxyzine pamoate 50 mg PO BEDTIME PRN lidocaine 5% patches topical loperamide 2 - 4 mg PO Q4-6H PRN naloxone 4 mg/actuation intranasal paroxetine HCl 10 mg PO QAM pregabalin 25 mg PO BEDTIME tramadol mg PO Q8H PRN zolpidem (Ambien) 5 mg PO BEDTIME PRN HPI Comments Details: Ines is here for consultation regarding tachycardia. There is a question of sinus tachycardia. Patient herself does not have any prior cardiac history including coronary disease, myocardial infarction or cardiomyopathy or in fact anything cardiac related. Within limits of her activity, she does not have any angina or any other cardiac symptoms. It seems that she does have chronic pain issues including neck pain. Has had surgery for the same. 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 at home: Yes (2 children ages 14+18) Do you presently have visiting nurse or other home services: No Alcohol intake: never Comment: COUNTS CORRECT Patient Tobacco Use Status: Never used Tobacco Current occupational status: unemployed Review of Systems Const Denies weakness ENT Denies dizziness and Reports neck pain Card Denies chest pain, Denies chest pain with activity, Denies syncope, Denies rapid heart rate, Denies pedal edema, Denies edema, Denies leg edema, Denies lightheadedness, Reports palpitations, Denies dyspnea, Denies dyspnea on exertion and Denies orthopnea Resp Denies cough, Denies dyspnea and Denies dyspnea on exertion GI Denies hematochezia and Denies change in stool character Musc Denies abnormal gait, Reports myalgias, Denies muscle cramps, Denies muscle weakness, Reports neck pain, Reports numbness, Denies radiating pain into limb and Reports tingling Neuro Denies abnormal gait, Denies dizziness, Denies syncope, Reports numbness, Reports tingling and Denies weakness Endo Reports palpitations Physical Exam Vital Signs: Last Vital Signs Pulse 99 03/04/25 10:57 BP 120/68 03/04/25 10:57 BMI result Body Mass Index 26.3 Const General: comfortable and no acute distress Orientation/consciousness: patient oriented x3 HEENT Other: Unremarkable Head: Yes normal to inspection Neck Neck: Yes normal visual inspection Chest Chest palpation & inspection: normal inspection of the chest Resp Auscultation: clear to auscultation bilaterally Cardio Palpation: normal PMI Heart sounds: S1 normal heart sound present, S2 normal heart sound present, no gallops, no murmurs and no rubs GI Palpation (GI): Soft to palpation Back/Spine/Pelvis Other: unremarkable Skin General skin exam: no rashes or lesions noted Neuro General: patient oriented x3 Extrem General: Yes normal to inspection Psych Mental Status: mental status grossly normal Office Procedures EKG Details: EKG with underlying sinus rhythm at 99/Min; slight nonspecific ST-T changes but otherwise no clear ischemic findings or other concerning abnormalities; [place] [address]-Ryqgcstccrqnljpqg, Complete Assessment & Plan Assessment & Plan (1) Sinus tachycardia: Code(s): R00.0 - Tachycardia, unspecified Category: Medical Plan: In today's EKG, sinus rhythm at 99/Min. In a prior EKG from 2024, sinus tachycardia 105/Min. Echocardiogram with LVEF of 60-65%. No significant valvular findings and otherwise unremarkable. Overall, mild sinus tachycardia with normal cardiac function on the echocardiogram. Normal thyroid function. Hemoglobin is within range. Could be from some combination of pain, deconditioning, autonomic dysfunction. We could do a Holter monitor for further assessment, but doubt any need for medications or any other definitive treatments. Coding Level of Care Code New Pt Level 3 (86229) Diagnoses Sinus tachycardia R00.0 CPT Codes EKG - CPT: 13174-Vvdilegumffeuitle, Complete ([id number])
--- OUTSIDE RECORDS SUMMARY | 2025-03-04 11:24 | XMS_ITS ---
Author Organization [facility] Address [address] [place] [address] Care Team Providers Care Golf Coach Name Role Phone Shalonda Lugo Primary Care Provider Devonte Bateman [phone] REASON FOR VISIT bowel prep Medications Medication [...] Active Encounters Encounter Location Date Provider [facility] [address] [address] 01/09/2025 Devonte Bains Plan Of Treatment Medication [...] Provider Name:Devonte Bains , 03/20/2025 11:40:00 AM, [address] [place] [address] , [place], [place], [phone], Progress Notes * TESSY RUANODOB:1980 (44 yo F)Acc No.[id number]:01/09/2025 Patient:?TESSY RUANO :1980???Age:44 Y???Sex:Female Address:[address] [place] [address] [address], [place], [address] * Refills? Start MiraLax (colon prep) Powder, [...] true * Date:? Generated for Israel curtis/Nimesh/eTransmitting on:?03/04/2025 11:24 AM EDT
--- OUTSIDE RECORDS SUMMARY | 2025-03-04 11:25 | XMS_ITS ---
Author Organization [facility] Address [address] [place] [address] Care Team Providers Care Manager Casino Name Role Phone Shalonda Lugo Primary Care Provider Devonte Bateman Unavailable [phone] Allergies No Known Allergies REASON FOR VISIT [...] screening (Z12.11) Active confirmed Problem Preprocedural examination (750784513006726) Preprocedural examination (Z01.818) Active confirmed Vital Signs Temperature 97.8 degrees Fahrenheit 01/10/20 25 Blood pressure systolic 001 mm Hg 01/10/20 25 Blood pressure diastolic 01 mm Hg 025 Height 62 in 01/09/2025 Weight 144.2 lbs 01/09/2025 BMI 26.37 kg/m2 01/09/2025 Procedures Procedure Date Ordered Date Performed Result Body Sit e COLONOSCOPY 01/09/2025 N/A Encounters Encounter Location Date Provider Diagnosis [facility] [address] [place] [phone] 01/09/2025 Devonte Bains Colon cancer screeni ng [...] referral to the [facility] at [facility] for your neck pain Overall, Ines appears [...] referral to the [facility] at [facility] for your neck pain Pending Test Test Name Order Date COLONOSCOPY 01/09/2025 Next Appt Details Follow Up: prn, Reason: Provider Name:Devonte Bains , 03/20/2025 11:40:00 AM, [address] [place] [address] , [place], [place], [phone], Progress Notes * INES RUANODOB:1980 (44 yo F)Acc No.[id number]:01/09/2025 Progress Notes Patient:?INES RUANO Provider:?Devonte Bains MD :1980???Age:44 Y???Sex:Female D ate:01/09/2025 Address:[address] [place] [address] [address], [place], [place] Pcp:Shalonda Calderón Subjective: * Chief Complaints: * [...] referral to the [facility] at [facility] for your neck pain?? * Immunizations:? Influenza (Not administered - Refused: Patient decision) * Procedure Codes:?10163 DIAGN OSTIC [id number] COLORECTAL CA SCREEN DOC [id number] TOBACCO [id number] BP SCR NOT PRFRM REC REASON [id number] RCMND FLW-UP 10 YRS DOCD * Preventive Medicine:? ??Counseling:?Care goal follow-up plan:?Above Normal BMI Follow-up?Dietary management education, guidance, and counseling,?BMI management provided?Yes.? * Follow Up:?prn * * Sign off status: Completed true * Provider:?Devonte Bains MD Date:? 025 Generated for Printi ng/Famargig/eTransmitting on:?03/04/2025 11:25 AM EDT History and Physical Notes * [...]
--- OUTSIDE RECORDS SUMMARY | 2025-03-04 11:25 | XMS_ITS | Patient Health Record ---
Author Organization [facility] Address [address] [place] [address] Care Team Providers Care Instructional Technology Coach Name Role Phone Shalonda Lugo Primary Care Provider Devonte Bateman Unavailable [phone] Allergies No Known Allergies Reason For Referral Referring Provider First Name Herbert Referring Provider Last Name Chidi ( DO NOT USE) Referred Organization [facility] Referred Provider Devonte Bains Referred Address [address] [facility],[address],[place], [place],[address],[place] Referred Provider Specialty Gastroentero logy General Notes Anupama Melendez 2024 11:39:18 AM > requested a [facility] referral from [facility] for visit with Dr. Bains on 01-06-25 [phone] Referral Priority Routine Medications Medication SIG (Take, [...] Status Risk Notes Problem Colon cancer screening (291350282) Colon cancer screening (Z12.11) Active confirmed Problem 33302710 Weight loss (R63.4) Active confirmed Problem 679653517 Irritable bowel syndrome with diarrhea (K58.0) Active confirmed Problem Fatigue (56664926) Other fatigue (R53.83) Active confirmed Problem 734874495 Gastroesophageal reflux disease without esophagitis (K21.9) Active confirmed Problem Preprocedural examination (303441041292295 ) Preprocedural examination (Z01.818) Active confirmed Problem 45526672 Colitis (K52.9) Active confirmed Problem 838980227 Vitamin B12 deficiency (E53.8) Active confirmed Problem 20388944 Acute colitis (K52.9) Active confirmed Problem 490443944 Abnormal UGI ser ies (R93.3) Active confirmed Problem 01852895 Diarrhea, unspecified type (R19.7) Active confirmed Problem 140222540 Abdominal pain, diffuse (R10.84) Active confirmed Vital Signs Temperature 97.8 degrees Fahrenheit 01/09/2025 Blood pressure diastolic 01 mm Hg 01/09/2025 Height 62 in 01/09/2025 Blood pressure systolic 001 mm Hg 01/09/2025 Weight 144.2 lbs 01/09/2025 BMI 26.37 kg/m2 01/09/2025 Procedures Procedure Date Ordered Date Performed Result Body Sit e COLONOSCOPY 01/09/2025 N/A Encounters Encounter Location Date Provider Diagnosis [facility] [address] [place] [phone] 01/09/2025 Devonte Bains Colon cancer screeni ng Z12.11 ; Irritable bowel syndrome with diarrhea K58.0 and Preprocedural examination Z01.818 [facility] [address] [place] [phone] 01/09/2025 Devonte Bains Assessments Encounter Date Diagnosis [...] referral to the [facility] at [facility] for your neck pain Overall, Ines appears [...] Provider Name:Devonte Bains , 03/20/2025 11:40:00 AM, [address] [place] [address] , [place], [place], [phone], Insurance Providers Payer Name Payer Address Payer Phone Subscriber Number Group Number Insured Name Patient Relationship to Insured Coverage Start Date Coverage End Date [facility] [address] [place] [address] [id number] INES RUANO Self - patient is the insured Medical (General) History Medical History History ICD Code Denies CT,DM,CVA,Lung disease,renal dise ase Colitis--05/2017--colonoscopy to the ascending [...]
== END 2025-03-04 11:19 | disposition home or self-care (01) ==
LOC: HO.HCS 10:48
PROVIDERS: PCP Student in an Organized Health Care Education/Training Program; Visit Provider Internal Medicine
DX: R00.0 Tachycardia, unspecified (principal)
CPT/HCPCS: 93010; 99203

== ENCOUNTER → 2025-03-04 10:47 | Outpatient (BNVA) | payer MEDICAID, SELFPAY | PROVIDERS: PCP Student in an Organized Health Care Education/Training Program; Visit Provider Internal Medicine | DX: R00.0 Tachycardia, unspecified (principal) | CPT/HCPCS: 93005; 99202 ==

== ENCOUNTER 2025-03-19 08:51 | Outpatient (AMB) | payer MEDICAID, SELFPAY ==
--- NOTE | 2025-03-19 08:57 | MHC.OFFVIS ---
Vital Signs 03/19/25 08:59 Height 5 ft 2 in Weight 146 lb BMI 26.7 BP 135/72 Blood Pressure Location Lt brachial Position Sitting Respiration 16 Pulse 98 Pulse Source Pulse Oximeter Pulse Oximetry (%) 99 Oxygen Delivery Method Room Air Intake Visit Reasons: Cervical radiculopathy Diesel Maintenance Technician Required: No Allergies No Known Allergies [No Known Allergies*] Allergy (Verified 03/19/25 09:02) Medication List - Last Reconciled 03/19/25 by KERA Blount acetaminophen 500 mg PO Q6H PRN cholecalciferol (vitamin D3) 25 mcg PO DAILY cyanocobalamin (vitamin B-12) 1,000 mcg PO DAILY dicyclomine 10 - 20 mg PO Q6H PRN drospirenone (contraceptive) (Slynd) 4 mg PO DAILY hydroxyzine pamoate 50 mg PO BEDTIME PRN lidocaine 5% patches topical loperamide 2 - 4 mg PO Q4-6H PRN meloxicam 15 mg PO DAILY PRN methocarbamol 500 mg PO BID PRN naloxone 4 mg/actuation intranasal paroxetine HCl 10 mg PO QAM pregabalin 25 mg PO BEDTIME tramadol 50 mg PO Q8H PRN zolpidem (Ambien) 5 - 10 mg PO BEDTIME PRN HPI Comments Details: The patient is a 44-year-old female presenting with chronic neck pain radiating to right shoulder and right arm. She underwent anterior diskectomy and fusion C5-C6 for C6 radiculopathy in 11/[address] Pinedo, but post-surgical outcomes did not result in symptom relief. She reports ongoing and constant throbbing neck pain radiating to the right shoulder, arm and hip, impacting her daily life, mood, sleep and quality of life. The pain is described as throbbing, stabbing, and tingling with a intensity of 9/10 at worst in the afternoon and evening hours, slightly better at 7/10 in the mornings. She has tried numerous pain management strategies including diclofenac gel, lidocaine patch, tramadol, pregabalin, Tylenol, and two rounds of physical therapy; however, none have provided sufficient relief. The pain is aggravated by movements, especially lifting her arm overhead and sleeping on the right side, weather changes, and heat. Imaging including cervical spine xrays, cervical spine and brain MRIs and CT myelogram revealed no spinal cord or nerve involvement, and EMG testing was normal. She also saw Neurologist Dr. Humphries 08/2024, was told she has normal EMG and tried gabapentin and then was started on carbamazepine with no relief but gave her significant nausea thus no longer taking it. Accompanying her symptomatology is significant right shoulder pain, potentially preceding her neck surgery per patient, with a history of rotator cuff tendinitis. Additionally, she suffers from insomnia and depression, for which she sees a mental counselor. She is wearing right wrist brace for support. - Onset: Post-surgical, chronic since neck surgery - Quality: Throbbing, pulsing, stabbing, pinching, tingling, cramping, burning, tiring, dull, sore, radiating, tiring, exhausting - Location: Neck, right shoulder and arm, back, radiating to hip - Exacerbating Factors: Movements, overhead reaching, lifting, sleeping on right side, weather changes - Relieving Factors: None noted - Interference: Sleep affected, daily activities impacted, emotional distress - Affect: Pain exacerbates insomnia and depression; patient sees a counselor - Analgesia: Tramadol, lidocaine patch, pregabalin and gabapentin tried with no relief; pain levels reach 9/10, goal is better pain control - Adverse Effects: Nausea with carbamazepine - Activities of Daily Living: Severely impacted by pain, described as exhausting - Aberrant Drug Related Behaviors: None reported Oswestry Neck Pain Disability Score=32 [facility] Medical History (Updated 03/19/25 @ 09:42 by KERA Blount) Cervical disc herniation Right shoulder pain Tendinitis of right rotator cuff Personal history of COVID-19 (~2019) History of miscarriage (~2019) Hiatal hernia Low back pain GERD (gastroesophageal reflux disease) History of IBS Neck pain Insomnia Hot flashes Surgical History (Updated 03/18/25 @ 15:21 by Raiza Khanna RN) Hx of cervical spine surgery (11/17/23) History of esophagogastroduodenoscopy (EGD) Hx of colonoscopy Family History Mother Hypertension Maternal Aunt Diabetes Social History 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 Moderate distress due to pain. Alert and oriented. Mood and affect appropriate. Anxious, sad, tearful at times. Follows and participates in conversation appropriately. Respiratory effort is unlabored. No cough. Able to transition from sit to stand unassisted. Ambulates with bilaterally normal heel strike and toe off. Neck Neck: Yes normal visual inspection, Yes no lymphadenopathy, Yes supple, No anterior neck swelling, No torticollis, Yes no JVD, No prominent supraclavicular fat pad and No prominent dorsocervical fat pad Back/Spine/Pelvis Cervical Spine: No Lhermitte's sign positive, cervical muscular tenderness, pain with cervical ROM, Cervical spine scars present, cervical spasm (right), No Cervical spine tenderness and No step off deformity Thoracic/Lumbar Spine: thoracic and lumbar spine normal to inspection, No thoracic spinal tenderness and No lumbar spinal tenderness Extrem Right upper extremity: shoulder/upper arm (Limited ROM due to pain with I/E rotation, worse with overhead activities) Details: normal to inspection, tenderness Location: of the A-C joint and over the subacromial bursa, crepitus and other (+Neer, +Emtpy can); no swelling Results Reviewed Results Reviewed: XR SHOULDER, RIGHT 07/01/23 CLINICAL INFORMATION: Pain in right shoulder COMPARISON: None available. TECHNIQUE: AP external rotation, Grashey, scapular Y, and axillary views of the right shoulder. FINDINGS: The bones and soft tissues are normal. No fracture. Glenohumeral and acromioclavicular alignment is anatomic with normal joint space. No abnormal soft tissue calcifications. IMPRESSION: No bony abnormality. XR cervical spine 4V 01/19/24 CLINICAL INFORMATION: Arthrodesis status COMPARISON: Cervical spine radiographs 06/10/2023 TECHNIQUE: 4 views of the cervical spine were obtained. FINDINGS: The cervical spine is visualized to the level of C7-T1 on the lateral view. Vertebral body alignment is maintained. No instability on flexion extension views. Status post C5-C6 anterior cervical discectomy and spinal fusion. No evidence of hardware fracture or complication. No definite osseous fusion noted across the vertebral bodies. Vertebral body height is maintained. Disc space heights are otherwise maintained. No prevertebral soft tissue swelling. IMPRESSION: Status post C5-C6 anterior cervical discectomy and spinal fusion. No evidence of hardware fracture or complication. No instability on flexion extension views. CT CERVICAL SPINE WITHOUT CONTRAST 03/23/24 CLINICAL INFORMATION: Cervical radiculopathy COMPARISON: MRI cervical spine on 01/28/2024 FINDINGS: There is normal filling of the lower cranial cerebral spinal fluid space in the thecal sac with intrathecal contrast. The visualized cervical spinal cord is normal in position and caliber. No impingement or displacement is seen. The thecal sac is intact without effacement. C1/C2: Bony structures are intact with normal alignment. There is no spinal stenosis. C2/C3: Bony structures are intact with normal alignment. There is no spinal stenosis. Bilateral C2/C3 neuroforamina are patent. Bilateral apophyseal joints are intact with normal alignment. C3/C4: Bony structures are intact with normal alignment. There is no spinal stenosis. Bilateral C3/C4 neuroforamina are patent. Bilateral apophyseal joints are intact with normal alignment. C4/C5: Bony structures are intact with minimal kyphosis. There is no spinal stenosis. Bilateral C4/C5 neuroforamina are patent. Bilateral apophyseal joints are intact with normal alignment. C5/C6: Status post ACDF, fixation with integrated interbody fixation device. Bony structures are intact with normal alignment. There is no spinal stenosis. Bilateral C5/C6 neuroforamina are patent. Bilateral apophyseal joints are intact with normal alignment. C6/C7: Bony structures are intact with normal alignment. There is no spinal stenosis. Bilateral C6/C7 neuroforamina are patent. Bilateral apophyseal joints are intact with normal alignment. C7/T1: Bony structures are intact with normal alignment. There is no spinal stenosis. Bilateral C7/T1 neuroforamina are patent. Bilateral apophyseal joints are intact with normal alignment. IMPRESSION: 1. Status post ACDF, fixation with interbody fixation device at C5/C6. 2. No evidence of spinal stenosis or neural foraminal narrowing. FLUOROSCOPIC CERVICAL MYELOGRAM 03/23/24 INDICATION: Cervical radiculopathy. History of C5-C6 arthrodesis. Limited MRI findings due to ferromagnetic artifact. TECHNIQUE/FINDINGS: Risks and benefits and possible complications were discussed with the patient and the consent form was signed. Patient was placed prone on the fluoroscopy table. The back was prepped and draped in routine sterile fashion. Betadine was used as a skin antiseptic. Utilizing fluoroscopic guidance, the L3-4 interlaminar space was accessed with a 22 gauge Nereyda spinal needle and clear CSF fluid was obtained. 10 mL of Isovue-M 300 was then injected through the needle and contrast was observed entering the thecal sac. The fluoroscopic table was then tilted in the Trendelenburg position, and contrast was observed flowing upwards to the cervical spine. The needle was removed without immediate complications. The patient was then transferred to CT for post myelographic imaging. Total fluoroscopy time: 2.13 min DAP: 129 dGy M/2 Images: 1 cine with 6 spot images IMPRESSION: Successful fluoroscopic guided intrathecal instillation of Isovue-M 300. Patient will undergo subsequent CT cervical myelographic imaging. Assessment & Plan Assessment & Plan (1) Tendinitis of right rotator cuff: Code(s): M75.81 - Other shoulder lesions, right shoulder Category: Medical (2) Right shoulder pain: Code(s): M25.511 - Pain in right shoulder Category: Medical (3) Impingement syndrome of right shoulder: Code(s): M75.41 - Impingement syndrome of right shoulder Category: Medical (4) Tendinitis of right rotator cuff: Code(s): M75.81 - Other shoulder lesions, right shoulder Category: Medical (5) S/P cervical spinal fusion: Code(s): Z98.1 - Arthrodesis status Category: Surgical (6) Muscle spasms of neck: Code(s): M62.838 - Other muscle spasm Category: Medical (7) Neck pain: Comment: radiating down right arm Code(s): M54.2 - Cervicalgia Category: Medical Plan A shoulder MRI is planned to further investigate causes of the patient's shoulder pain, with a possibility of referral to Orthopedics based on the results. Corticosteroid injections may be considered for short-term relief if indicated by MRI findings. Additionally, a trial of a spinal cord stimulator has been discussed for chronic neck pain, considering her persistent pain and lack of relief from previous treatments. Meloxicam is prescribed for anti-inflammatory management, with instructions to avoid other NSAIDs concurrently. Script also provided for methocarbamol, muscle relaxant for ongoing neck spasms and stiffness, worse on the right side. It's imperative to distinguish the issues stemming from her shoulder from those originating from her neck to address her pain comprehensively. Further actions will be determined post-shoulder MRI follow-up. All questions and concerns have been answered agreed with the treatment plan. Follow-up for MRI results and sooner as needed. Patient was informed and verbally consented to the use of an ambient scribe for clinic note documentation during this visit. Orders: Orders MR shoulder RT wo con Today M25.511 - Pain in right shoulder, M75.41 - Impingement syndrome of right shoulder, M75.81 - Other shoulder lesions, right shoulder Medications: New meloxicam Take it with food and full glass of water 15 mg PO DAILY PRN 30 tabs 0RF pain M25.511 - Pain in right shoulder, M75.41 - Impingement syndrome of right shoulder, M75.81 - Other shoulder lesions, right shoulder methocarbamol 500 mg PO BID PRN 60 tabs 0RF muscle spasm M25.511 - Pain in right shoulder, M54.2 - Cervicalgia, M62.838 - Other muscle spasm Coding Level of Care Code New Pt Level 4 (16130) Diagnoses Tendinitis of right rotator cuff M75.81 Right shoulder pain M25.511 Impingement syndrome of right shoulder M75.41 S/P cervical spinal fusion Z98.1 Muscle spasms of neck M62.838 Neck pain M54.2
[2025-03-19 08:59] VITALS: BP 135/72; PULSE 98; RESP 16; O2SAT 99; BMI 26.7
--- OUTSIDE RECORDS SUMMARY | 2025-03-19 09:28 | XMS_ITS ---
Author Organization [facility] Address [address] [place] [address] Care Team Providers Care Combination Machine Tool Setter Name Role Phone Shalonda Lugo Primary Care Provider Devonte Bateman Unavailable [phone] Allergies No Known Allergies REASON FOR VISIT [...] screening (Z12.11) Active confirmed Problem Preprocedural examination (326698689784098) Preprocedural examination (Z01.818) Active confirmed Vital Signs Temperature 97.8 degrees Fahrenheit 01/10/20 25 Blood pressure systolic 001 mm Hg 01/10/20 25 Blood pressure diastolic 01 mm Hg 025 Height 62 in 01/09/2025 Weight 144.2 lbs 01/09/2025 BMI 26.37 kg/m2 01/09/2025 Procedures Procedure Date Ordered Date Performed Result Body Sit e COLONOSCOPY 01/09/2025 N/A Encounters Encounter Location Date Provider Diagnosis [facility] [address] [place] [phone] 01/09/2025 Devonte Bains Colon cancer screeni ng [...] referral to the [facility] at [facility] for your neck pain Overall, Ines [...] referral to the [facility] at [facility] for your neck pain Pending Test Test Name Order Date COLONOSCOPY 01/09/2025 Next Appt Details Follow Up: prn, Reason: Provider Name:Devonte Bains , 03/20/2025 11:40:00 AM, [address] [place] [address] , [place], [place], [id number], Progress Notes * INES RUANODOB:1980 (44 yo F)Acc No.[id number]:01/09/2025 Progress Notes Patient:?INES RUANO Provider:?Devonte Bains MD :1980???Age:44 Y???Sex:Female D ate:01/09/2025 Address:[address] [place] [address] [address], [place], [id number] Pcp:Shalonda Calderón Subjective: * Chief Complaints: * [...] referral to the [facility] for your neck pain?? * Immunizations:? Influenza (Not administered - Refused: Patient decision) * Procedure Codes:?74496 DIAGN OSTIC [id number] COLORECTAL CA SCREEN DOC [id number] TOBACCO [id number] BP SCR NOT PRFRM REC REASON [id number] RCMND FLW-UP 10 YRS DOCD * Preventive Medicine:? ??Counseling:?Care goal follow-up plan:?Above Normal BMI Follow-up?Dietary management education, guidance, and counseling,?BMI management provided?Yes.? * Follow Up:?prn * * Sign off status: Completed true * Provider:?Devonte Bains MD Date:? 025 Generated for Printi ng/Famargig/eTransmitting on:?03/19/2025 09:28 AM EDT History and Physical Notes * [...]
== END 2025-03-19 09:30 | disposition home or self-care (01) ==
LOC: HO.PMC 08:52
PROVIDERS: PCP Student in an Organized Health Care Education/Training Program; Referring Provider Student in an Organized Health Care Education/Training Program; Visit Provider Nurse Practitioner Family
DX: M75.81 Other shoulder lesions, right shoulder (principal); M25.511 Pain in right shoulder; M75.41 Impingement syndrome of right shoulder; Z98.1 Arthrodesis status; M62.838 Other muscle spasm; M54.2 Cervicalgia
CPT/HCPCS: 99204

== ENCOUNTER → 2025-03-19 08:51 | Outpatient (BNVA) | payer MEDICAID, SELFPAY | PROVIDERS: PCP Student in an Organized Health Care Education/Training Program; Referring Provider Student in an Organized Health Care Education/Training Program; Visit Provider Nurse Practitioner Family | DX: M75.81 Other shoulder lesions, right shoulder (principal); M25.511 Pain in right shoulder; M75.41 Impingement syndrome of right shoulder; M62.838 Other muscle spasm; M54.2 Cervicalgia; Z98.1 Arthrodesis status | CPT/HCPCS: 99212 ==

== ENCOUNTER 2025-03-20 09:52 | Day surgery (SDC) | payer MEDICAID, SELFPAY ==
--- OUTSIDE RECORDS SUMMARY | 2025-02-28 09:18 | XMS_ITS | Encounter Summary ---
Author Organization [employer] Address [address] [facility] [address]t [place] [address] Care Team Providers Care Communications Technologist Name Role Phone Shalonda Lugo MD Primary Care Pro vider Reason for Visit * Reason Comments Med Refill Encounter Details Date Type Department Care Team ([facility] Contact Info) Description 12/18/2024 Refill [facility] MEDICINE [address] [place], [place] [phone] Sarah Liu NP [address] [place], [place] [phone] Social History Tobacco Use Types Packs/Day Years Used Date Smoking Tobacco: Never Passive Smoke Exposure: Never Smokeless Tobacco: Never Alcohol Use Standard Drinks/Week Comments Not Currently 0 (1 standard drink = 0.6 oz pur e alcohol) Depression Answer Date Recorded Patient Health Questionnaire-9 Score 13 09/19/2024 Patient Health Questionnaire-9 Score 13 09/19/2024 Last PHQ-9: Questionnaire Data Not on file 1 11/20/2023 Housing Stability Answer Date Recorded What is your housing situation today? I have raoul talamantes 12/28/[address] you li ve. Do you have problems with any of the following? None of the above 12/28/2023 Food Insecurity Answer Date Recorded Within the past 12 months, y ou worried that your food would run out before you got money to buy more: Never True 12/28/2023 Within the past 12 months,th e food you bought just didn't last and you didn't have enough money to get more: Never True Transportation Answer Date Recorded In the past 12 months, has l ack of transportation kept you from medical appts, meetings, work or from getting things needed for daily living? No 12/28/2023 Utilities Answer Date Recorded In the past 12 months, has t he electric, gas, oil or water company threatened to shut off services in your home? No 12/28/2023 Depression Answer Date Recorded Patient Health Questionnaire-2 Score 2 09/19/2024 Comments No Sex and Gender Information Value Date Recorded Sex Assigned at Female 08/16/2022 10:16 AM EDT Legal Sex Female 10:16 AM EDT Gender Identity Female 08/16/2022 10:16 AM EDT Sexual Orientation Choose not to disclose 2021 10:16 AM EDT documented as of this encounter Plan of Treatment Upcoming Encounters Date Type Department Care Team (Late st Contact Info) Description 04/03/2025 9:00 AM EDT Office Visit [facility] MEDICINE [address] [place] [address] Shalonda Lugo MD [address] [place] [phone] 04/08/2025 2:30 PM EDT Telemedicine [facility] CHC MED & PEDS [address] [place] [address] Bette Nolasco, SINA [address] [place] [address] documented as of this encounter Visit Diagnoses Not on filedocumented in this encounter Additional Health Concerns Assessment Noted Time PHQ-9 Depression Total Score: 13 024 11:16 AM EST documented as of this encounter Care Teams Communications Technologist Relationship Specialty Start Date End Date Shalonda Lugo MD [address] [place] [id number] PCP - General Internal Medicine 06/10/23 documented as of this encounter
--- OUTSIDE RECORDS SUMMARY | 2025-02-28 09:18 | XMS_ITS | Encounter Summary ---
Author Organization [employer] Address [address] [facility] 7t [place] [address] Care Team Providers Care Urban Designer Name Role Phone Shalonda Lugo MD Primary Care Pro vider Encounter Details Date Type Department Care Team ([facility] st Contact Info) Description 02/07/2025 Orders Only [facility] [address] [place] [address] Torri Hou PA [address] [place] [address] Social History Tobacco Use Types Packs/Day Years Used Date Smoking Tobacco: Never Passive Smoke Exposure: Never Smokeless Tobacco: Never Alcohol Use Standard Drinks/Week Comments Not Currently 0 (1 standard drink = 0.6 oz pur e alcohol) Depression Answer Date Recorded Patient Health Questionnaire-9 Score 16 02/06/2025 Patient Health Questionnaire-9 Score 16 02/06/2025 Last PHQ-9: Questionnaire Data Not on file 0 02/06/2025 Housing Stability Answer Date Recorded What is your housing situation today? I have raoul talamantes 01/28/[address] you li ve. Do you have problems with any of the following? None of the above 01/28/2025 Food Insecurity Answer Date Recorded Within the past 12 months, y ou worried that your food would run out before you got money to buy more: Never True 01/28/2025 Within the past 12 months,th e food you bought just didn't last and you didn't have enough money to get more: Never True Transportation Answer Date Recorded In the past 12 months, has l ack of transportation kept you from medical appts, meetings, work or from getting things needed for daily living? No 01/28/2025 Utilities Answer Date Recorded In the past 12 months, has t he electric, gas, oil or water company threatened to shut off services in your home? No 01/28/2025 Depression Answer Date Recorded Patient Health Questionnaire-2 Score 5 02/06/2025 Internet Access Answer Date Recorded Internet Access Q1 Yes 01/28/2025 Internet Access Q2 Not on file 01/28/2025 Comments No Sex and Gender Information Value Date Recorded Sex Assigned at Female 08/16/2022 10:16 AM EDT Legal Sex Female 10:16 AM EDT Gender Identity Female 08/16/2022 10:16 AM EDT Sexual Orientation Choose not to disclose 2021 10:16 AM EDT documented as of this encounter Plan of Treatment Upcoming Encounters Date Type Department Care Team ([facility] Contact Info) Description 04/03/2025 9:00 AM EDT Office Visit [facility] MEDICINE [address] [place] [address] Shalonda Lugo MD 230 [place] [address] 04/08/2025 2:30 PM EDT Telemedicine [facility] CHC MED & PEDS 505 [place], [place] [phone] Bette Nolsaco, SINA 505 [place], [place] [phone] documented as of this encounter Procedures Procedure Name Priority Date/Time Associated Diagnosis Comments EMG Routine 07/28/2023 11:51 AM EDT documented in this encounter Results * EMG (07/28/2023 11:51 AM EDT) us Torri [facility] ORDERABLES Final Resul t documented in this encounter Visit Diagnoses Not on filedocumented in this encounter Additional Health Concerns Assessment Noted Time PHQ-9 Depression Total Score: 16 025 11:44 AM EDT documented as of this encounter Care Teams Urban Designer Relationship Specialty Start Date End Date Shalonda Lugo MD [address] [place] [phone] PCP - General Internal Medicine 06/10/23 documented as of this encounter
--- OUTSIDE RECORDS SUMMARY | 2025-02-28 09:18 | XMS_ITS | Encounter Summary ---
Author Organization [employer] Address [address] [facility] 7t [place] [address] Care Team Providers Care Occupational Safety Specialist Name Role Phone Shalonda Lugo MD Primary Care Pro vider Encounter Details Date Type Department Care Team ([facility] st Contact Info) Description 02/14/2025 Orders Only [facility] CHC MED & PEDS [address] [place], [place] [phone] Provider, MD Lam[place] Social History Tobacco Use Types Packs/Day Years [...] is your housing situation today? I have raouljustin talamantes 01/28/[address] you [...] Description 04/03/2025 9:00 AM EDT Office Visit [facility] MEDICINE [address] [place] [phone] Shalonda Lugo MD [address] [place] [phone] 04/08/2025 2:30 PM EDT Telemedicine [facility] MED & PEDS 505 [place] [address] Bette Nolasco, RN 505 [place] [address] documented as of this encounter Procedures Procedure Name Priority Date/Time Associated Diagnosis Comments COLONOSCOPY Routine 03/17/2018 5:23 PM EDT documented in this encounter Results * Hm Colonoscopy (03/17/2018 5:23 PM EDT) Historical Provider HEALTH MAINTENANCE Final Result documented in this encounter Visit Diagnoses Not on filedocumented in this encounter Additional Health Concerns Assessment Noted Time PHQ-9 Depression Total Score: 16 025 11:44 AM EDT documented as of this encounter Care Teams Occupational Safety Specialist Relationship Specialty Start Date End Date Shalonda Lugo MD [address] [place] [id number] PCP - General Internal Medicine 06/10/23 documented as of this encounter
--- OUTSIDE RECORDS SUMMARY | 2025-02-28 09:18 | XMS_ITS | Encounter Summary ---
Author Organization [employer] Address [address] [facility] 7t [place] [address] Care Team Providers Care Synthetic Plasterer Name Role Phone Shalonda Lugo MD Primary Care Pro vider Reason for Visit * Reason Onset Date Comments Med Refill 01/07/2025 Encounter Details Date Type Department Care Team ([facility] st Contact Info) Description 01/07/2025 Refill [facility] MEDICINE 230 [place], [place] [phone] Sarah Liu NP 230 [place], [place] [phone] Social History Tobacco Use Types Packs/Day Years [...] Description 04/03/2025 9:00 AM EDT Office Visit [facility] MEDICINE [address] [place] [address] Shalonda Lugo MD [address] [place] [phone] 04/08/2025 2:30 PM EDT Telemedicine [facility] CHC MED & PEDS 505 [place] [address] Bette Nolasco, RN [address] [place] [address] documented as of this encounter Visit Diagnoses Not on filedocumented in this encounter Additional Health Concerns Assessment Noted Time PHQ-9 Depression Total Score: 13 024 11:16 AM EST documented as of this encounter Care Teams Synthetic Plasterer Relationship Specialty Start Date End Date Shalonda Lugo MD [address] [place] [phone] PCP - General Internal Medicine 06/10/23 documented as of this encounter
--- OUTSIDE RECORDS SUMMARY | 2025-02-28 09:18 | XMS_ITS ---
Author Organization [facility] Address [address] [place] [address] Care Team Providers Care Motion Picture Printer Name Role Phone Shalonda Lugo Primary Care Provider Devonte Bateman Unavailable [phone] Allergies No Known Allergies REASON FOR VISIT Patient presents today for a colon screening Medications Medication SIG (Take, Route, Frequency, Duration) Notes Start Date End Date Status traZODone HCl 100 MG TAKE 1 TABLET BY MO UTH EVERY DAY AT BEDTIME NEEDED FOR SLEEP Oral for 30 Days Active Slynd 4 MG TAKE 1 TABLET BY ALINE TH EVERY DAY Oral for 84 Days Active traZODone HCl 50 MG TAKE 1 TABLET BY ALINE TH AT BEDTIME NEEDED FOR SLEEP Oral for 30 Days Active Imodium A-D 2 MG 1 or 2 tablets Orall y Every 4 to 6 hours if needed for diarrhea for 30 days 01/09/2025 Active Acetaminophen Extra Strength 500 MG TAKE 1 TABLET BY MOUTH EVERY 6 HOURS NEEDED FOR MILD PAIN Oral for 15 Days Active Dicyclomine HCl 10 MG 1 or 2 capsules Or ally Every 6 hours if needed for abdominal cramps/discomfort for 30 days 01/09/2025 Active Diphenoxylate-Atropine 2.5-0.025 MG TAKE 1 TO 2 TABLETS BY MOUTH EVERY 6 HOURS NEEDED FOR DIARRHEA for 30 PRN 12/10/2021 Active Famotidine 20 MG TAKE 1 TABLET BY ALINE TH TWICE A DAY for 90 PRN Active Zolpidem Tartrate 5 MG TAKE 1 TABLET BY MOUTH EVERY DAY AT BEDTIME NEEDED FOR SLEEP Oral for 30 Days Active traMADol HCl 50 MG TAKE 1 TABLET BY ALINE TH EVERY 8 HOURS NEEDED FOR SEVERE PAIN Oral for 28 Days Active Imodium A-D 2 MG 1 tablet as needed Orally Four times a day 01/09/2025 Active Ambien 10 MG 1 tablet at bedtime as needed Orally Once a day Active Ibuprofen PRN Active Tylenol PRN Active Multivitamin Active Immunizations Vaccine Route Administration Date Status Comme nts Influenza Unknown 01/09/2025 Refused Social History Tobacco Use: Social History Observation Description Date Details (start date - stop date) Never Smoker NA - NA Tobacco Use/Smoking Question Answer Notes Patient is a nonsmoker Alcohol Screen Question Answer Notes Did you have a drink contain ing alcohol in the past year? Yes How often did you have a dri nk containing alcohol in the past year? Monthly or less (1 point) How often did you have 6 or more drinks on one occasion in the past year? Never (0 point) Points 1 Interpretation Negative Section Notes: Nonsmoker; no sig alcohol Problems Problem Type SNOMED Code ICD Code Onset Dates Problem Status W/U Status Risk Notes Problem Colon cancer screening (Z12.11) Active confirmed Problem Preprocedural examination ([id number]) Preprocedural examination (Z01.818) Active confirmed Vital Signs Temperature 97.8 degrees Fahrenheit 01/10/20 25 Blood pressure systolic 001 mm Hg 01/10/20 25 Blood pressure diastolic 01 mm Hg 025 Height 62 in 01/09/2025 Weight 144.2 lbs 01/09/2025 BMI 26.37 kg/m2 01/09/2025 Procedures Procedure Date Ordered Date Performed Result Body Sit e COLONOSCOPY 01/09/2025 N/A Encounters Encounter Location Date Provider Diagnosis [facility] [address] [place] [phone] 01/09/2025 Devonte Bains Colon cancer screeni ng Z12.11 ; Irritable bowel syndrome with diarrhea K58.0 and Preprocedural examination Z01.818 Assessments Encounter Date Diagnosis (ICD Code) Assessment Notes Treatment Notes Treatment Clinical Notes Section Notes 01/09/2025 Colon cancer screening (ICD-10 - Z12.11) Overall, Ines appears well from a GI standpoint. At this point, given her age over 43, her last colonoscopy being about 7 years ago, and the family history of colon cancer, I did recommend a colonoscopy for screening purposes. We did review the rationale for this in regard to colon cancer prevention. Full consent has been obtained for this, including risks of bleeding and perforation. The procedure will be done with monitored anesthesia care. In regard to the irritable bowel syndrome I we will give her new prescriptions for dicyclomine and Imodium to use for the abdominal cramps and intermittent diarrhea, respectively. Ines was comfortable with this plan. Thank you again for allowing me to participate in Ines's care. I shall continue to keep you advised of her progress. 01/09/2025 Irritable bowel syndrome with diarrhea (ICD-10 - K58.0) I will send over prescriptions for the Imodium for diarrhea and the Dicyclomine for abdominal cramps Overall, Ines appears well from a GI standpoint. At this point, given her age over 43, her last colonoscopy being about 7 years ago, and the family history of colon cancer, I did recommend a colonoscopy for screening purposes. We did review the rationale for this in regard to colon cancer prevention. Full consent has been obtained for this, including risks of bleeding and perforation. The procedure will be done with monitored anesthesia care. In regard to the irritable bowel syndrome I we will give her new prescriptions for dicyclomine and Imodium to use for the abdominal cramps and intermittent diarrhea, respectively. Ines was comfortable with this plan. Thank you again for allowing me to participate in Ines's care. I shall continue to keep you advised of her progress. 01/09/2025 Preprocedural examination (ICD-10 - Z01.818) Overall, Ines appears well from a GI standpoint. At this point, given her age over 43, her last colonoscopy being about 7 years ago, and the family history of colon cancer, I did recommend a colonoscopy for screening purposes. We did review the rationale for this in regard to colon cancer prevention. Full consent has been obtained for this, including risks of bleeding and perforation. The procedure will be done with monitored anesthesia care. In regard to the irritable bowel syndrome I we will give her new prescriptions for dicyclomine and Imodium to use for the abdominal cramps and intermittent diarrhea, respectively. Ines was comfortable with this plan. Thank you again for allowing me to participate in Ines's care. I shall continue to keep you advised of her progress. 01/09/2025 Other Look into getting a referral to the [facility] at [facility] for your neck pain Overall, Ines appears well from a GI standpoint. At this point, given her age over 43, her last colonoscopy being about 7 years ago, and the family history of colon cancer, I did recommend a colonoscopy for screening purposes. We did review the rationale for this in regard to colon cancer prevention. Full consent has been obtained for this, including risks of bleeding and perforation. The procedure will be done with monitored anesthesia care. In regard to the irritable bowel syndrome I we will give her new prescriptions for dicyclomine and Imodium to use for the abdominal cramps and intermittent diarrhea, respectively. Ines was comfortable with this plan. Thank you again for allowing me to participate in Ines's care. I shall continue to keep you advised of her progress. Plan Of Treatment Medication Medication Name Sig Start Date Stop Date Notes Imodium A-D 2 MG 1 or 2 tablets Orall y Every 4 to 6 hours if needed for diarrhea for 30 days 01/09/2025 Dicyclomine HCl 10 MG 1 or 2 capsules Or ally Every 6 hours if needed for abdominal cramps/discomfort for 30 days 01/09/2025 Treatment Notes Assessment Notes Irritable bowel syndrome with diarrhea I will send over prescriptions for the Imodium for diarrhea and the Dicyclomine for abdominal cramps Other Look into getting a referral to the [facility] at [facility] for your neck pain Pending Test Test Name Order Date COLONOSCOPY 01/09/2025 Next Appt Details Follow Up: prn, Reason: Provider Name:Devonte Bains , 03/20/2025 11:40:00 AM, [address] [place] [address] , [place], [place], [phone], Progress Notes * INES RUANODOB:1980 (44 yo F)Acc No.[id number]:01/09/2025 Progress Notes Patient:?INES RUANO Provider:?Devonte Bains MD :1980???Age:44 Y???Sex:Female D ate:01/09/2025 Address:[address] [place] [address] [address], [place], [phone] Pcp:Shalonda Calderón Subjective: * Chief Complaints: * ???Patient presents today fo r a colon screening * HPI: ???incontinence:? I saw Ines in follow-up today in regard to her underlying history of irritable bowel syndrome and need for colorectal cancer screening. I last saw Ines in February 2022. Since that time she reports that her irritable bowel syndrome has been fairly stable but she still experiences intermittent diarrhea and abdominal cramps. She has been using primarily Imodium rather than Lomotil with relief of the diarrhea. She reports that she is having usually 2 or 3 bowel movements per day. She has not noticed any hematochezia nor melena. She describes a good appetite and denies any significant heartburn or dysphagia. She denies any signs of jaundice, weight loss, nor any other abdominal pains aside from the abdominal cramps from the irritable bowel syndrome. Her last colonoscopy was in 2017. That colonoscopy and the 1 the year before that were both negative for any polyps. She does describe a family history of colorectal cancer in a grandmother. Her other main issue that bothers her presently is that of ongoing neck pain with some pain down the right arm. She did have a cervical spine surgery last year but without any relief of that. * ROS:?General/Constitutional:?Change in appetite?denies.?Chills?denies.?Fatigue?denies.?Ophthalmologic:?Comments?all negative.?ENT:?Comments?all negative.?Respiratory:?hemoptysis?denies.?Cough?denies.?Cardiovascular:?Chest pain?denies.?Orthopnea?denies.?Gastrointestinal:?Comments?See HPI for details.?Genitourinary:?Hematuria?denies.?Dysuria?denies.?Musculoskeletal:?Painful joints?Neck.?Weakness?denies.?Skin:?Itching?denies.?Rash?denies.?Neurologic:?Headache?denies.?Seizures?denies.?Psychiatric:?Comments?all negative.? * Medical History:? * Surgical History:?C5-C6 surg naima 11/[address] Pinedo * Hospitalization/Major Diagno stic Procedure:?No Hospitalization History. * Family History:?Father: marty shukla?Mother: alive.?Maternal Grand Mother: , diagnosed with Diabetes, Colon cancer.? No known family hx of colorectal cancer; Aunt has colitis ? No family history of liver cancer. * Social History:?Tobacco Use:?Tobacco Use/Smoking?Patient is a?nonsmoker.?Drugs/Alcohol:?Alcohol Screen?Did you have a drink containing alcohol in the past year??Yes,?How often did you have a drink containing alcohol in the past year??Monthly or less (1 point), How often did you have 6 or more drinks on one occasion in the past year??Never (0 point),?Points?1,?Interpretation?Negative.?Miscellaneous:?Children: 2 daughters. Marital status: single. 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 ???Nonsmoker; no sig alcohol. * Medications:?TakingImodium A -D 2 MG Tablet 1 tablet as needed Orally Four times a day Ambien 10 MG Tablet 1 tablet at bedtime as needed Orally Once a day Ibuprofen , Notes to Pharmacist: PRNTylenol , Notes to Pharmacist: PRNMultivitamin Diphenoxylate-Atropine 2.5-0.025 MG Tablet TAKE 1 TO 2 TABLETS BY MOUTH EVERY 6 HOURS NEEDED FOR DIARRHEA , Notes to Pharmacist: PRNFamotidine 20 MG Tablet TAKE 1 TABLET BY MOUTH TWICE A DAY , Notes to Pharmacist: PRNZolpidem Tartrate 5 MG Tablet TAKE 1 TABLET BY MOUTH EVERY DAY AT BEDTIME NEEDED FOR SLEEP Oral traMADol HCl 50 MG Tablet TAKE 1 TABLET BY MOUTH EVERY 8 HOURS NEEDED FOR SEVERE PAIN Oral Acetaminophen Extra Strength 500 MG Tablet TAKE 1 TABLET BY MOUTH EVERY 6 HOURS NEEDED FOR MILD PAIN Oral traZODone HCl 100 MG Tablet TAKE 1 TABLET BY MOUTH EVERY DAY AT BEDTIME NEEDED FOR SLEEP Oral Slynd 4 MG Tablet TAKE 1 TABLET BY MOUTH EVERY DAY Oral traZODone HCl 50 MG Tablet TAKE 1 TABLET BY MOUTH AT BEDTIME NEEDED FOR SLEEP Oral Taking Imodium A-D 2 MG Tablet 1 tablet as needed Orally Four times a day Taking Ambien 10 MG Tablet 1 tablet at bedtime as needed Orally Once a day Taking Ibuprofen , Notes to Pharmacist: PRNTaking Tylenol , Notes to Pharmacist: PRNTaking Multivitamin Taking Diphenoxylate-Atropine 2.5-0.025 MG Tablet TAKE 1 TO 2 TABLETS BY MOUTH EVERY 6 HOURS NEEDED FOR DIARRHEA , Notes to Pharmacist: PRNTaking Famotidine 20 MG Tablet TAKE 1 TABLET BY MOUTH TWICE A DAY , Notes to Pharmacist: PRNTaking Zolpidem Tartrate 5 MG Tablet TAKE 1 TABLET BY MOUTH EVERY DAY AT BEDTIME NEEDED FOR SLEEP Oral Taking traMADol HCl 50 MG Tablet TAKE 1 TABLET BY MOUTH EVERY 8 HOURS NEEDED FOR SEVERE PAIN Oral Taking Acetaminophen Extra Strength 500 MG Tablet TAKE 1 TABLET BY MOUTH EVERY 6 HOURS NEEDED FOR MILD PAIN Oral Taking traZODone HCl 100 MG Tablet TAKE 1 TABLET BY MOUTH EVERY DAY AT BEDTIME NEEDED FOR SLEEP Oral Taking Slynd 4 MG Tablet TAKE 1 TABLET BY MOUTH EVERY DAY Oral Taking traZODone HCl 50 MG Tablet TAKE 1 TABLET BY MOUTH AT BEDTIME NEEDED FOR SLEEP Oral * Allergies:?N.K.D.A.yes[Aller gies Verified] Objective: * Vitals:?Wt: 144.2 lbs, Ht: 6 2 in, BMI:26.37Index, BP: 001/01 mm Hg, Temp: 97.8, Wt-k.41. * Examination: ???General Examination: ?GENERAL APPEARANCE:?pleasant, thin, alert, well developed, in no acute distress.?EYES:?sclera non-icteric.?ORAL CAVITY:?mucosa moist.?NECK/THYROID:?no cervical lymphadenopathy, neck supple.?SKIN:?nonjaundiced, no spider angiomata.?HEART:?S1, S2 normal.?LUNGS:?clear to auscultation bilaterally.?ABDOMEN:?normal bowel sounds, no guarding or rigidity, no guarding or rigidity, no masses palpable, soft, nontender, nondistended.?EXTREMITIES:?no edema.?NEUROLOGIC:?alert and oriented.? Assessment: * Assessment: 1.?Irritable bowel syndrome with diarrhea - K58.0 (Primary)???2.?Colon cancer screening - Z12.11???3.?Preprocedural examination - Z01.818??? Overall, Ines appears well from a GI standpoint. At this point, given her age over 43, her last colonoscopy being about 7 years ago, and the family history of colon cancer, I did recommend a colonoscopy for screening purposes. We did review the rationale for this in regard to colon cancer prevention. Full consent has been obtained for this, including risks of bleeding and perforation. The procedure will be done with monitored anesthesia care. In regard to the irritable bowel syndrome I we will give her new prescriptions for dicyclomine and Imodium to use for the abdominal cramps and intermittent diarrhea, respectively. Ines was comfortable with this plan. Thank you again for allowing me to participate in Ines's care. I shall continue to keep you advised of her progress. Plan: * Treatment: 2.?Colon cancer screening? Start Dicyclomine HCl Capsule, 10 MG, 1 or 2 capsules, Orally, Every 6 hours if needed for abdominal cramps/discomfort, 30 days, 60, Refills 3;?Start Imodium A-D Tablet, 2 MG, 1 or 2 tablets, Orally, Every 4 to 6 hours if needed for diarrhea, 30 days, 60, Refills 5.?Procedure: COLONOSCOPY 3.?Others? Notes: Look into getting a referral to the [facility] at [facility] for your neck pain?? * Immunizations:? Influenza (Not administered - Refused: Patient decision) * Procedure Codes:?26764 DIAGN OSTIC [id number] COLORECTAL CA SCREEN DOC [id number] TOBACCO [id number] BP SCR NOT PRFRM REC REASON [id number] RCMND FLW-UP 10 YRS DOCD * Preventive Medicine:? ??Counseling:?Care goal follow-up plan:?Above Normal BMI Follow-up?Dietary management education, guidance, and counseling,?BMI management provided?Yes.? * Follow Up:?prn * * Sign off status: Completed true * Provider:?Devonte Bains MD Date:? 025 Generated for Printi ng/Famargig/eTransmitting on:?02/28/2025 09:18 AM EDT History and Physical Notes * Examination Category Sub-Category Detail Notes Category Not es General Examination GENERAL APPEARANCE: pleasant , thin, alert, well developed, in no acute distress HEAD: EYES: sclera non-icteric EARS: NOSE: THROAT: NECK/THYROID: no cervical lymphade nopathy, neck supple HEART: S1, S2 normal CHEST: LUNGS: clear to auscultatio n bilaterally ABDOMEN: normal bowel sounds, no guarding or rigidity, no guarding or rigidity, no masses palpable, soft, nontender, nondistended NEUROLOGIC: alert and oriented SKIN: nonjaundiced, no spi cody angiomata EXTREMITIES: no edema PERIPHERAL PULSES: BACK: BREASTS: MUSCULOSKELETAL: MALE GENITOURINARY: LYMPH NODES: RECTAL EXAM: FEMALE GENITOURINARY: ORAL CAVITY: mucosa moist
--- OUTSIDE RECORDS SUMMARY | 2025-02-28 09:18 | XMS_ITS | Encounter Summary ---
Author Organization [employer] Address [address] [facility] [address] [place] [address] Care Team Providers Care Shorer Name Role Phone Shalonda Lugo MD Primary Care Pro vider Reason for Visit * Reason Onset Date Comments Med Refill 02/14/2025 [facility] Recall 02/14/2025 Encounter Details Date Type Department Care Team ([facility] Contact Info) Description 02/14/[address] [facility] [address] [place] [address] Sunni Bass CNM [address] [place] [address] Social History Tobacco Use Types Packs/Day Years [...] AM EDT documented as of this encounter Miscellaneous Notes * Telephone Encounter - Rochelle Connors [place] - 02/26/2025 10:50 AM EDT T/c to pt to book her for annual pelvic exam 15min in May no answer lvm. documented in this encounter Plan of Treatment Upcoming Encounters Date Type Department Care Team ([facility] st Contact Info) Description 04/03/2025 9:00 [address] EDT Office [address] [facility] [address] [place] [address] Shalonda Lugo MD [address] [place] [address] 04/08/2025 2:[address] [facility] [address] [place] [address] Bette Nolasco, SINA [address] [place] [address] documented as of this encounter Visit Diagnoses Not on filedocumented in this encounter Additional Health Concerns Assessment Noted Time PHQ-9 Depression Total Score: 16 025 11:44 AM EDT documented as of this encounter Care Teams Shorer Relationship Specialty Start Date End Date Shalonda Lugo MD [address] [place] [id number] PCP - General Internal Medicine 06/10/23 documented as of this encounter
--- OUTSIDE RECORDS SUMMARY | 2025-02-28 09:19 | XMS_ITS | Encounter Summary ---
Author Organization [employer] Address [address] [place] [address] [address] [place] [address] Care Team Providers Care Loom Setter Name Role Phone Shalonda Lugo MD Primary Care Pro vider Reason for Visit * Reason Comments Med Refill Encounter Details Date Type Department Care Team ([facility] Contact Info) Description 07/18/2023 Refill [facility] [address] [place], [place] [phone] Ivett Wagner FNP [address] [place] [address] Other insomnia Social History Tobacco Use Types Packs/Day Years Used Date Smoking Tobacco: Never Passive Smoke Exposure: Never Smokeless Tobacco: Never Comments No Sex and Gender Information Value Date Recorded Sex Assigned at Female 08/16/2022 10:16 AM EDT Legal Sex Female 10:16 AM EDT Gender Identity Female 08/16/2022 10:16 AM EDT Sexual Orientation Choose not to disclose 2021 10:16 AM EDT documented as of this encounter Plan of Treatment Upcoming Encounters Date Type Department Care Team ([facility] Contact Info) Description 04/03/2025 9:00 AM EDT Office Visit [facility] [address] [place], [place] [phone] Shalonda Lugo MD [address] [place] [address] 04/08/2025 2:30 PM EDT Telemedicine [facility] [address] [place], [place] [phone] Bette Nolasco, SINA [address] [place] [address] documented as of this encounter Visit Diagnoses Diagnosis Other insomnia documented in this encounter Care Teams Loom Setter Relationship Specialty Start Date End Date Shalonda Lugo MD [address] [place] [id number] PCP - General Internal Medicine 06/10/23 documented as of this encounter
--- OUTSIDE RECORDS SUMMARY | 2025-02-28 09:19 | XMS_ITS | Patient Health Record ---
Author Organization [facility] Address [address] [place] [address] Care Team Providers Care Financial Manager Name Role Phone Shalonda Lugo Primary Care Provider Devonte Bateman Unavailable [phone] Allergies No Known Allergies Reason For Referral Referring Provider First Name Herbert Referring Provider Last Name Chidi ( DO NOT USE) Referred Organization [facility] Referred Provider Devonte Bains Referred Address [address] [facility],[address],[place], [place],[address],[place] Referred Provider Specialty Gastroentero logy General Notes Anupama Melendez 2024 11:39:18 AM > requested a [facility] for visit with Dr. Bains on 01-06-25 [phone] Referral Priority Routine Medications Medication SIG (Take, Route, Frequency, Duration) Notes Start Date End Date Status Zolpidem Tartrate 5 MG TAKE 1 TABLET BY MOUTH EVERY DAY AT BEDTIME NEEDED FOR SLEEP Oral for 30 Days Active traZODone HCl 100 MG TAKE 1 TABLET BY MO UTH EVERY DAY AT BEDTIME NEEDED FOR SLEEP Oral for 30 Days Active Imodium A-D 2 MG 1 tablet as needed Orally Four times a day 01/09/2025 Active Slynd 4 MG TAKE 1 TABLET BY ALINE TH EVERY DAY Oral for 84 Days Active Ambien 10 MG 1 tablet at bedtime as needed Orally Once a day Active traZODone HCl 50 MG TAKE 1 TABLET BY ALINE TH AT BEDTIME NEEDED FOR SLEEP Oral for 30 Days Active Ibuprofen PRN Active MiraLax (colon prep) 17 GM/SCOOP 1 238Gm bottle mixed with Gatorade or Crystal Light orally begin at 5:00 p.m. the day before the procedure for 1 days 02/10/2025 Active Tylenol PRN Active Dicyclomine HCl 10 MG 1 or 2 capsules Or ally Every 6 hours if needed for abdominal cramps/discomfort for 30 days 01/09/2025 Active Multivitamin Active Diphenoxylate-Atropine 2.5-0.025 MG TAKE 1 TO 2 TABLETS BY MOUTH EVERY 6 HOURS NEEDED FOR DIARRHEA for 30 PRN 12/10/2021 Active Dulcolax (colon prep) 5 MG take at 3:00 p.m and 7:00p.m. Orally two tablets twice a day for one day for 1 days 02/10/2025 Active Famotidine 20 MG TAKE 1 TABLET BY ALINE TH TWICE A DAY for 90 PRN Active Imodium A-D 2 MG 1 or 2 tablets Orall y Every 4 to 6 hours if needed for diarrhea for 30 days 01/09/2025 Active traMADol HCl 50 MG TAKE 1 TABLET BY ALINE TH EVERY 8 HOURS NEEDED FOR SEVERE PAIN Oral for 28 Days Active Acetaminophen Extra Strength 500 MG TAKE 1 TABLET BY MOUTH EVERY 6 HOURS NEEDED FOR MILD PAIN Oral for 15 Days Active Immunizations Vaccine Route Administration Date Status Comme nts Influenza Unknown 07/17/2018 Administered Influenza Unknown 08/12/2018 Administered Influenza Unknown 08/27/2020 Refused Influenza Unknown 02/17/2022 Refused Influenza Unknown 01/09/2025 Refused Social History Tobacco [...] Negative Section Notes: Nonsmoker; no sig alcohol Nonsmoker; no sig alcohol Nonsmoker; no sig alcohol Nonsmoker; no sig alcohol Nonsmoker; no sig alcohol Nonsmoker; no sig alcohol Nonsmoker; no sig alcohol Nonsmoker; no sig alcohol Nonsmoker; no sig alcohol Problems Problem Type SNOMED Code ICD Code Onset Dates Problem Status W/U Status Risk Notes Problem Colon cancer screening (Z12.11) Active confirmed Problem 53604757 Weight loss (R63.4) Active confirmed Problem 343141116 Irritable bowel syndrome with diarrhea (K58.0) Active confirmed Problem Fatigue (30156201) Other fatigue (R53.83) Active confirmed Problem 887049206 Gastroesophageal reflux disease without esophagitis (K21.9) Active confirmed Problem Preprocedural examination (705006786092648 ) Preprocedural examination (Z01.818) Active confirmed Problem 63251893 Colitis (K52.9) Active confirmed Problem 782894704 Vitamin B12 deficiency (E53.8) Active confirmed Problem 22171146 Acute colitis (K52.9) Active confirmed Problem 530292762 Abnormal UGI ser ies (R93.3) Active confirmed Problem 26128689 Diarrhea, unspecified type (R19.7) Active confirmed Problem 852760934 Abdominal pain, diffuse (R10.84) Active confirmed Vital Signs Temperature 97.8 degrees Fahrenheit 01/09/2025 Blood pressure diastolic 01 mm Hg 01/09/2025 Height 62 in 01/09/2025 Blood pressure systolic 001 mm Hg 01/09/2025 Weight 144.2 lbs 01/09/2025 BMI 26.37 kg/m2 01/09/2025 Procedures Procedure Date Ordered Date Performed Result Body Sit e COLONOSCOPY 01/09/2025 N/A Encounters Encounter Location Date Provider Diagnosis [facility] [address] [place] [phone] 01/09/2025 Devonte Bains Colon cancer screeni ng Z12.11 ; Irritable bowel syndrome with diarrhea K58.0 and Preprocedural examination Z01.818 [facility] [address] [place] [phone] 01/09/2025 Devonte Bains Assessments Encounter Date Diagnosis (ICD Code) Assessment [...] referral to the [facility] at [facility] for your neck pain Overall, Ines appears [...] advised of her progress. Plan Of Treatment Pending Test Test Name Order Date COLONOSCOPY 01/09/2025 LIVER PROFILE 08/27/2020 B12 12/22/2017 B12 08/27/2020 CBC w DIFF 08/27/2020 CBC w DIFF 12/22/2017 CLOSTRIDIUM DIFF TOXIN A&B (C DIFF) 09/16 GIARDIA AG, STOOL EIA 09/25/2018 OVA & PARASITES (O&P) 09/25/2018 CULTURE, STOOL 09/25/2018 CT ABD & PELVIS WITH CONTRAST 09/25/2018 TSH REFLEX FREE T4 08/27/2020 STOOL WBC 09/25/2018 Future Test Test Name Order Date UPPER GI ENDOSCOPY 03/29/2018 COLONOSCOPY 03/29/2018 Next Appt Details Provider Name:Devonte Bains , 03/20/2025 11:40:00 AM, [address] [place] [address] , [place], [place], [phone], Insurance Providers Payer Name Payer Address Payer Phone Subscriber Number Group Number Insured Name Patient Relationship to Insured Coverage Start Date Coverage End Date [facility] [address] [place] [address] [id number] INES RUANO Self - patient is the insured Medical (General) History Medical History History ICD Code Denies WA,DM,CVA,Lung disease,renal dise ase Colitis--05/2017--colonoscopy to the ascending colon revealed a segmental colitis in the sigmoid colon but normal colon proximal and distal to this--biopsies of the normal appearing colon were unremarkable, and biopsies from the area of colitis seemed most consistent with some type of acute colitis as opposed to underlying chronic inflammatory bowel disease Vitamin B12 deficiency in 2016 with a B12 level of 146---neg. IF Ab's, neg. parietal cell Ab's,and neg celiac disease labs--she received B12 shots during her hospitalization in 05/2017. The vitamin B12 level was > 2000 in 12/2017. Colonoscopy and EGD in March of 2018--- the upper endoscopy was normal other than a small hiatal hernia, including normal duodenal biopsies without any sign of celiac disease and gastric biopsies that were negative for Hpylori--there was no evidence of any esophagitis; the colonoscopy was completely normal both endoscopically and with biopsies negative for microscopic colitis nor Crohn's disease; terminal ileum biopsies were normal as well. COVID 01/2020-not hospitalized Miscarriage in October 2019 Surgical History Surgery Date(Month/Year) C5-C6 surgery 11/[address] Pinedo
--- OUTSIDE RECORDS SUMMARY | 2025-02-28 09:19 | XMS_ITS | Encounter Summary ---
Author Organization [employer] Address [address] [place] [address], [place] [address] Care Team Providers Care Disability Attorney Name Role Phone Shalonda Lugo MD Primary Care Pro vider Reason for Visit * Reason Comments Med Refill Encounter Details Date Type Department Care Team ([facility] Contact Info) Description 11/15/2023 Refill [facility] [address] [place], [place] [phone] Shalonda Lugo MD [address] [place] [address] [phone] Other insomnia Social History Tobacco Use Types [...] Upcoming Encounters Date Type Department Care Team ([facility] Contact Info) Description 04/03/2025 9:00 AM EDT Office Visit [facility] [address] [place], [place] [phone] Shalonda Lugo MD [address] [place] [address] [phone] 04/08/2025 2:30 PM EDT Telemedicine [facility] [address] [place] [address] [phone] Bette Nolasco, SINA [address] [place] [address] documented as of this encounter Visit Diagnoses Diagnosis Other insomnia documented in this encounter Care Teams Disability Attorney Relationship Specialty Start Date End Date Shalonda Lugo MD [address] [place] [phone] PCP - General Internal Medicine 06/10/23 documented as of this encounter
--- OUTSIDE RECORDS SUMMARY | 2025-02-28 09:19 | XMS_ITS | Encounter Summary ---
Author Organization [employer] Address [address] [facility] [address] [place] [address] Care Team Providers Care Accounts Manager Name Role Phone Shalonda Lugo MD Primary Care Pro vider Reason for Visit * Reason Onset Date Comments Med Refill 09/04/2024 Encounter Details Date Type Department Care Team ([facility] st Contact Info) Description 09/04/2024 Refill [facility] [address] [place] [address] Shalonda Lugo MD [address] [place] [address] Other insomnia Social History Tobacco Use Types Packs/Day Years Used Date Smoking Tobacco: Never Passive Smoke Exposure: Never Smokeless Tobacco: Never Alcohol Use Standard Drinks/Week Comments Not Currently 0 (1 standard drink = 0.6 oz pur e alcohol) Depression Answer Date Recorded Patient Health Questionnaire-9 Score 16 02/29/2024 Patient Health Questionnaire-9 Score 16 02/29/2024 Last PHQ-9: Questionnaire Data Not on file 0 02/29/2024 Housing Stability Answer Date Recorded What is [...] enough money to get more: Never True 03/ Transportation Answer Date Recorded In the past [...] Answer Date Recorded Patient Health Questionnaire-2 Score 6 02/29/2024 Comments No Sex and Gender Information Value [...] Description 04/03/2025 9:00 AM EDT Office Visit [facility] [address] [place] [address] Shalonda Lugo MD [address] [place] [phone] 04/08/2025 2:30 PM EDT Telemedicine [facility] [address] [place], [place] [phone] Bette Nolasco, RN [address] [place] [address] documented as of this encounter Visit Diagnoses Diagnosis Other insomnia documented in this encounter Additional Health Concerns Assessment Noted Time PHQ-9 Depression Total Score: 16 024 10:08 AM EDT documented as of this encounter Care Teams Accounts Manager Relationship Specialty Start Date End Date Shalonda Lugo MD [address] [place] [phone] PCP - General Internal Medicine 06/10/23 documented as of this encounter
--- OUTSIDE RECORDS SUMMARY | 2025-02-28 09:19 | XMS_ITS | Encounter Summary ---
Author Organization [employer] Address [address] [place] [address] [address] [address] Care Team Providers Care Real Estate Assistant Name Role Phone Shalonda Lugo MD Primary Care Pro vider Reason for Visit * Reason Onset Date Comments Med Refill 08/03/2024 Encounter Details Date Type Department Care Team ([facility] st Contact Info) Description 08/03/2024 Refill [facility] [address] [place] [address] Shalonda Lugo MD [address] [place] [address] Social History Tobacco Use Types Packs/Day Years [...] Description 04/03/2025 9:00 AM EDT Office Visit [facility] [address] [place] [address] Shalonda Lugo MD [address] [place] [phone] 04/08/2025 2:30 PM EDT Telemedicine [facility] [address] [place], [place] [phone] Bette Nolasco, RN [address] [place] [address] documented as of this encounter Visit Diagnoses Not on filedocumented in this encounter Additional Health Concerns Assessment Noted Time PHQ-9 Depression Total Score: 16 024 10:08 AM EDT documented as of this encounter Care Teams Real Estate Assistant Relationship Specialty Start Date End Date Shalonda Lugo MD [address] [place] [address] PCP - General Internal Medicine 06/10/23 documented as of this encounter
--- OUTSIDE RECORDS SUMMARY | 2025-02-28 09:19 | XMS_ITS | Encounter Summary ---
Author Organization [employer] Address [address] [facility] [address] [place] [address] Care Team Providers Care Applied Technologist Name Role Phone Shalonda Lugo MD Primary Care Pro vider Reason for Visit * Reason Onset Date Comments Med Refill 12/29/2023 Encounter Details Date Type Department Care Team ([facility] st Contact Info) Description 12/29/2023 Refill [facility] [address] [place], [place] [phone] Shalonda Lugo MD [address] [place], [place] [phone] Social History Tobacco Use Types Packs/Day Years Used Date Smoking Tobacco: Never Passive Smoke Exposure: Never Smokeless Tobacco: Never Housing Stability Answer Date Recorded What is [...] off services in your home? No 12/28/2023 Comments No Sex and Gender Information Value [...] Description 04/03/2025 9:00 AM EDT Office Visit [facility] [address] [place] [address] Shalonda Lugo MD [address] [place] [address] 04/08/2025 2:30 PM EDT Telemedicine [facility] [address] [place], [place] [phone] Bette Nolasco, RN [address] [place], [place] [phone] documented as of this encounter Visit Diagnoses Not on filedocumented in this encounter Care Teams Applied Technologist Relationship Specialty Start Date End Date Shalonda Lugo MD [address] [place] [phone] PCP - General Internal Medicine 06/10/23 documented as of this encounter
--- OUTSIDE RECORDS SUMMARY | 2025-02-28 09:19 | XMS_ITS | Encounter Summary ---
Author Organization [employer] Address [address] [place] [address] 7[place] [address] Care Team Providers Care Maintenance Groundman Name Role Phone Shalonda Lugo MD Primary Care Pro vider Reason for Visit * Reason Onset Date Comments Med Refill 11/23/2023 Encounter Details Date Type Department Care Team ([facility] Contact Info) Description 11/23/2023 Refill [facility] [address] [place], [place] [phone] Ivett Wagner FNP [address] [place], [place] [phone] Other insomnia Social History Tobacco Use Types [...] Upcoming Encounters Date Type Department Care Team ([facility] Contact Info) Description 04/03/2025 9:00 AM EDT Office Visit [facility] 230 [place], [place] [phone] Shalonda Lugo MD [address] [place], [place] [phone] 04/08/2025 2:30 PM EDT Telemedicine [facility] [address] [place] [address] Bette Nolasco RN [address] [place] [address] documented as of this encounter Visit Diagnoses Diagnosis Other insomnia documented in this encounter Care Teams Maintenance Groundman Relationship Specialty Start Date End Date Shalonda Lugo MD [address] [place] [phone] PCP - General Internal Medicine 06/10/23 documented as of this encounter
--- OUTSIDE RECORDS SUMMARY | 2025-02-28 09:19 | XMS_ITS ---
Author Organization [facility] Address [address] [place] [phone] Care Team Providers Care Promotion Specialist Name Role Phone Shalonda Lugo Primary Care Provider Devonte Bateman [phone] REASON FOR VISIT bowel prep Medications Medication SIG (Take, Route, Frequency, Duration) Notes Start Date End Date Status MiraLax (colon prep) 17 GM/SCOOP 1 238Gm bottle mixed with Gatorade or Crystal Light orally begin at 5:00 p.m. the day before the procedure for 1 days 02/10/2025 Active Dulcolax (colon prep) 5 MG take at 3:00 p.m and 7:00p.m. Orally two tablets twice a day for one day for 1 days 02/10/2025 Active Encounters Encounter Location Date Provider Diagnosis [facility] [address] [phone] 01/09/2025 Devonte Bains Plan Of Treatment Medication Medication Name Sig Start Date Stop Date Notes MiraLax (colon prep) 17 GM/SCOOP 1 238Gm bottle mixed with Gatorade or Crystal Light orally begin at 5:00 p.m. the day before the procedure for 1 days 02/10/2025 Dulcolax (colon prep) 5 MG take at 3:00 p.m and 7:00p.m. Orally two tablets twice a day for one day for 1 days 02/10/2025 Next Appt Details Provider Name:Devonte Bains , 03/20/2025 11:40:00 AM, [address] [place] [address] , [place], [place], [phone], Progress Notes * TESSY RUANODOB:1980 (44 yo F)Acc No.[id number]:01/09/2025 Patient:?TESSY RUANO :1980???Age:44 Y???Sex:Female Address:[address] [place] [address] [address], [place], [address] * Refills? Start MiraLax (colon prep) Powder, 17 GM/SCOOP, orally, 1, 1 238Gm bottle mixed with Gatorade or Crystal Light, begin at 5:00 p.m. the day before the procedure, 1 days, Refills=0 Start Dulcolax (colon prep) Tablet Delayed Release, 5 MG, Orally, 4, take at 3:00 p.m and 7:00p.m., two tablets twice a day for one day, 1 days, Refills=0 * true * Date:? Generated for Israel curtis/Nimesh/eTransmitting on:?02/28/2025 09:18 AM EDT
--- OUTSIDE RECORDS SUMMARY | 2025-02-28 09:19 | XMS_ITS | Clinical Summary ---
Author Organization [employer] Address [address] [facility] [address] [place] [address] Care Team Providers Care Steam Gigger Name Role Phone Shalonda Lugo MD Primary Care Pro vider Allergies No known active allergies Medications * This document contains information received from the source organization and may not represent a complete record from that organization. Diclofenac Sodium 1 % gel APPLY 4GRAMS TO AFFECTED AREA FOUR TIMES A DAY NEEDED 07/01/20 23 Active famotidine (Pepcid) 20 MG tablet Take 20 mg by mouth 2 times daily. 05/04/20 23 Active Misc. Devices (Pulse Oximeter) misc 1 Device Once per day. 1 each 02/29/20 24 Active Drospirenone (Slynd) 4 MG tablet Take 1 tablet by mouth Once per day. 28 tablet 11 05/21/20 24 Active cholecalcifer ol (Vitamin D-3) 25 MCG (1000 UT) tablet Take 1 tablet (25 mcg) by mouth Once per day. 90 tablet 1 08/03/20 24 025 Active carBAMazepine (TEGretol) 200 MG tablet Take 200 mg by mouth at bedtime. 09/10/20 24 Active dicyclomine (Bentyl) 20 MG tablet Take 20 mg by mouth before breakfast, before lunch, before evening meal, and at bedtime. Active loperamide (Imodium A-D) 2 MG tablet Take by mouth if needed in the morning, at noon, in the evening, and at bedtime for diarrhea. Active lidocaine (Lidoderm) 5 % patch APPLY 1 PATCH TOPICALLY TO SKIN, LEAVE ON FOR 12 HOURS AND OFF FOR 12 HOURS DIRECTED FOR MILD PAIN 30 patch 1 01/09/20 25 Active cyanocobalami n (Vitamin B-12) 1000 MCG tablet TAKE 1 TABLET BY MOUTH EVERY DAY 90 tablet 01/09/20 25 Active Acetaminophen Extra Strength 500 MG tablet TAKE 1 TABLET BY MOUTH EVERY 6 HOURS NEEDED FOR MILD PAIN 60 tablet 1 01/09/20 25 Active pregabalin (Lyrica) 25 MG capsule Take 1 capsule (25 mg) by mouth at bedtime. 30 capsule 2 02/07/20 25 026 Active traMADol (Ultram) 50 MG tabletIndicat ions:Acute pain of right shoulder Take 1 tablet (50 mg) by mouth every 8 (eight) hours if needed for severe pain or moderate pain for up to 28 days. For severe pain can take 2 tab 112 tablet 02/07/20 25 025 Active naloxone (Narcan) 4 mg/0.1 mL nasal spray Administer 1 spray (4 mg) into affected nostril(s) if needed for opioid reversal. May repeat every 2-3 minutes if needed, alternating nostrils, until medical assistance becomes available. 2 each 2 02/07/20 25 026 Active PARoxetine (Paxil) 10 MG tabletIndicat ions:Depressi ve disorder due to another medical condition with mixed features Take 1 tablet (10 mg) by mouth in the morning. 30 tablet 02/08/20 25 025 Active zolpidem (Ambien) 5 MG tabletIndicat ions:Other insomnia Take 1 tablet (5 mg) by mouth if needed at bedtime for sleep. 30 tablet 02/08/20 25 025 Active hydrOXYzine pamoate (Vistaril) 50 MG capsuleIndica tions:Other insomnia Take 1 capsule (50 mg) by mouth if needed at bedtime for anxiety (and sleep). 30 capsule 02/08/20 25 025 Active traMADol (Ultram) 50 MG tabletIndicat ions:Acute pain of right shoulder Take 1 tablet (50 mg) by mouth every 8 (eight) hours if needed for severe pain for up to 28 days. 84 tablet 01/08/20 25 025 Discontinued(Re order (will not trigger notification to Pharmacy)) escitalopram (Lexapro) 10 MG tabletIndicat ions:Depressi ve disorder due to another medical condition with mixed features Take 1.5 tablets (15 mg) by mouth in the morning. 135 tablet 01/08/20 25 025 Discontinued(Si de effects) zolpidem (Ambien) 5 MG tabletIndicat ions:Other insomnia Take 1 tablet (5 mg) by mouth if needed at bedtime for sleep. 30 tablet 01/08/20 25 025 Discontinued(Re order (will not trigger notification to Pharmacy)) hydrOXYzine pamoate (Vistaril) 25 MG capsuleIndica tions:Other insomnia Take 1 capsule (25 mg) by mouth if needed at bedtime for anxiety (and sleep). 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 04/13/2024 Low vitamin B12 level 02/29/2024 Cervical radiculopathy 01/04/2024 Health care maintenance 12/08/2023 Sinus tachycardia 12/08/2023 Numbness and tingling of right arm 06/13/2023 Irritable bowel syndrome with diarrhea 0 09/25/2023 Gastroesophageal reflux disease without esophagi tis 03/20/2012 09/25/2023 Resolved Problems Problem Noted Date Diagnosed Date Resolved Date Neck pain 06/13/2023 12/08/2023 Assessment & Plan (09/26/2023 3:49 PM EST): Pain and paraesthesias with progressive loss of small motor function in R arm, concern for myelopathy - will order C spine MRI due to lack of improvement in symptoms despite 3 months of conservative treatment - stop Gabapentin 300mg TID due to lack of benefit initiate Cymbalta 20mg ER daily Assessment & Plan (06/13/2023 11:21 AM EDT): Apply heat on affected area Patient already tried muscle relaxers, prednisone and NSAIDs, she looks in significant pain, I will switch her meds for now to short course tramadol and gabapentin, 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; Numbness and tingling of right arm; Other insomnia; Irritable bowel syndrome with diarrhea; Health care maintenance; Long-term current use of opiate analgesic 02/06/2025 Travel 02/05/[address] [address] Shalonda Lugo MD chart prep 01/28/2025 Patient Outreach [address] [address] Shalonda Lugo MD Pre-visit Planning (SDOH screening negative and tobacco screening negative) 01/24/2025 1:30 PM EDT Clinical Support [facility] [address] [place] [address] Bette Nolasco RN Cervical radiculopathy (Primary Dx); Long-term current use of opiate analgesic 01/24/2025 Telephone [facility] [address] [place] [address] Bette Nolasco RN 01/24/2025 Travel 01/07/2025 Refill [facility] [address] [place] [address] Sarah Liu NP 01/07/2025 Refill [facility] [address] [place] [address] Shalonda Lugo MD 01/07/2025 Refill [facility] [address] [place] [address] Ladonna Kaur ANP Acute pain of right shoulder 12/28/2024 Population Health Risk Score [facility] ([facility] Department [address] [place] [phone] Provider, Population Health Generic 12/19/2024 Telephone [facility] MEDICINE [address] [place] [address] Shalonda Lugo MD january12/18/2024 Refill [facility] [address] [place] [address] Sarah Liu NP 12/10/2024 Refill [facility] [address] [place] [address] Ladonna Kaur ANP Acute pain of right shoulder from Last 3 Months Immunizations Immunization Administration Dates Next Due Hep B, adult 03/30/2012,04/27/2011,03/30/2011 Influenza injectable quadriv alent IIV4 with preservative 08/08/2018,07/11/2017 Influenza injectable quadriv alent preservative free 09/22/2020,11/25/2015 Influenza, IIV3, injectable 08/12/2018, 8 TD (adult), 2 Lf tetanus tox oid, preservative free, adsorbed 05/09/2001 Tdap 02/29/2024,03/30/2011 Family History Medical History Relation Name Comments Colon cancer Maternal Grandmother DM2 Mother's Brother DM2 Mother's Sister Relation Name Status Comments Maternal Grandmother Mother's Brother Mother's Sister Social History Tobacco Use Types Packs/Day Years Used Date Smoking Tobacco: Never Passive Smoke Exposure: Never Smokeless Tobacco: Never Tobacco Cessation:Counseling Given: Not Answered Alcohol Use Standard Drinks/Week Comments Not Currently [...] not to disclose 2021 10:16 AM EDT Last Filed Vital Signs Vital Sign Reading Time Taken Comments Blood Pressure 138/90 02/06/2025 11:04 AM EDT Pulse 66 02/06/2025 10:46 AM EDT Temperature 36.7 ??C (98 ??F) 02/06/2025 10:46 AM EDT Respiratory Rate 20 02/06/2025 10:46 AM EDT Oxygen Saturation 97% 02/06/2025 10:46 AM EDT Inhaled Oxygen Concentration - - Weight 65.5 kg (144 lb 6.4 oz) 02/06/2025 10:46 AM EDT Height 157.5 cm (5' 2 ) 02/06/2025 10:46 AM EDT Body Mass Index 26.41 02/06/2025 10:46 AM EDT Plan of Treatment Upcoming Encounters Date Type Department Care Team (Late st Contact Info) Description 04/03/2025 9:00 AM EDT Office Visit [facility] MED[facility]INE [address] [place], [place] [phone] Shalonda Lugo MD [address] [place], [place] [phone] 04/08/2025 2:30 PM EDT Telemedicine [facility] [address] [place], [place] [phone] Bette Nolasco, SINA [address] [place], [place] [phone] Health Maintenance Due Date Last Done Comments CT Colonography 1978 FIT DNA/Cologuard 1978 FIT 1978 FOBT 1980 Sigmoidoscopy 1980 COVID-19 Vaccine ( season) 2024 08/18/2021 Influenza Vaccine (#1) 2024 , 08/12/2018, 08/08/2018, Additional history exists Family Planning (PISQ) 05/21/2025 05/21/2024 Alcohol/Substance Use Screening 09/19/2025 09/19/2024 SDOH Screening 01/28/2026 01/28/2025 Depression Screening 02/06/2026 02/06/2025, 02/07/20 25 Tobacco Screening 02/07/2026 02/07/2025 Mammogram 04/24/2026 04/24/2024, 0503/2023, 01/20/2022, Additional history exists Colonoscopy 03/17/2028 03/17/2018 Colorectal Cancer Screening 03/17/2028 Cervical Cancer Screening 05/18/2028 HPV/Cotest 05/18/2028 05/18/2023, 05/01/2020 Pap Smear 05/18/2028 05/18/2023, 05/01/2020 Zoster Vaccines (1 of 2) 2028 DTaP/Tdap/Td Vaccines (3 - Td or Tdap) 02/28/2034 02/29/2024, 03/30/2011, 05/09/2001 RSV Patients and Patients Aged 60 years or older (1 - 1-dose 75+ series) 2053 Hepatitis B Vaccines Completed 03/30/2012, 04/27/2011, 03/30/2011 HIV Screening Completed 02/24/2024, 09/22/2020 Hepatitis C Screening Completed 02/24/2024, 020 HIB Vaccines Aged Out No longer eligi ble based on patient's age to complete this topic HPV Vaccines Aged Out No longer eligi ble based on patient's age to complete this topic Hepatitis A Vaccines Aged Out No long er eligible based on patient's age to complete this topic IPV Vaccines Aged Out No longer eligi ble based on patient's age to complete this topic Meningococcal B Vaccine Aged Out No l onger eligible based on patient's age to complete this topic Meningococcal Vaccine Aged Out No sarah sarabjit eligible based on patient's age to complete this topic Pneumococcal Vaccine: Pediatrics (0 to 5 Years) and At-Risk Patients (6 to 49) Years) Aged Out No longer eligible based on patient's age to complete this topic RSV under 20 months Aged Out No longe r eligible based on patient's age to complete this topic Rotavirus Vaccines Aged Out No longer eligible based on patient's age to complete this topic Procedures Procedure Name Priority Date/Time Associated Diagnosis Comments POCT TIM-14 URINE DRUG SCREEN Routine 01/24/2025 1:41 PM EDT Long-term current use of opiate analgesic Cervical radiculopathy BI MAMMOGRAM SCREENING TOMOSYNTHESIS BILATERAL Routine 04/24/2024 9:38 AM EDT HEPATITIS C AB W/REFL TO HCV RNA, QN, PCR Routine 02/24/2024 8:28 AM EDT Annual physical exam HIV 1/2 ANTIGEN/ANTIBODY, FOURTH GENERATION W/RFL Routine 02/24/2024 8:28 AM EDT Annual physical exam HPV MRNA E6/E7 REFLEX TO HPV 16, 18/45 Routine 05/18/2023 9:25 AM EDT PAP SMEAR Routine 05/18/2023 9:25 AM EDT HM COLONOSCOPY Routine 03/17/2018 5:23 PM EDT from Last 3 Months or Most Recently Relevant to Health Maintenance Results * POCT TIM-14 Urine Drug Screen (01/24/2025 1:41 PM EDT) TCA, Urine Positive Urine Urine specimen obtained by clean catch procedure / Unknown 01/24/2025 1:41 PM EDT Narrative Bette Nolasco RN - 01/24/2025 1:41 PM EDT Lot# [id number] Exp: 06-05-26 Shalonda Calderón MD POINT OF CARE HARRISON T ENTER/EDIT ORDERABLES Final Result * BI Mammogram Screening Tomosynthesis Bilateral (04/24/2024 9:38 AM EDT) Anatomical Region Laterality Modality Breast Bilateral Mammography 04/24/2024 9:38 AM EDT Narrative 05/22/2024 8:50 AM EDT ? [facility] [place] ? [address] ?[place] [address] ? Mammography Report ? Signed ? Patient: Francisca,Ines ?MR#: [id number] ? : 1980 ?Acct:[id number] ? Age/Sex: 43 / F ?ADM Date: 07/09/24 ? Loc: HO.MAMMO ? Attending Dr: Shalonda Calderón MD ? Ordering Physician: Shalonda Lugo MD ?Re ?? sults: 1Negative ? Date of Service: 04/24/24 ?Follow Up: 1 Year From Orig ?? inal Mammogram ? Procedure(s): MM tomosynthesis screening BI ?? Accession Number(s): [id number] ? cc: Shalonda Lugo MD ? EXAMINATION: ?? MM SCREENING DIGITAL BREAST TOMOSYNTHESIS, BILATERAL ? CLINICAL INFORMATION: ? Screening. Asymptomatic. ? COMPARISON: ?? Mammography: This study is compared with prior exams dating back to ?? 2018. ? TECHNIQUE: ?? Digital breast tomosynthesis is performed in both the craniocaudal and ?? mediolateral oblique views along with computer-aided detection (CAD). ?? Synthesized 2D images are generated from the tomosynthesis. ? FINDINGS: ?? The breasts are heterogeneously dense, which may obscure small masses ?? (ACR BI-RADS breast composition Category c). ? There are no significant masses, abnormal calcifications, or other ?? abnormalities. ? MM/MM tomosynthesis screening BI ?? IMPRESSION: ?? No mammographic evidence of malignancy. ? ASSESSMENT: ? BI-RADS BI-RADS 1 - Negative ? RECOMMENDATION: ?? Routine annual mammography screening. ? 1 year F/U ? This examination should not preclude the clinical evaluation of a ?? suspicious palpable abnormality. ? This patient's information was entered into a reminder system with a ?? target due date for their next mammogram. ? Dictated By: ?Kiara Recinos MD ? Signed By: ?<Electronically signed by Kiara Recinos MD in OV> ? 05/22/24845 ? DD/ 7 ? TD/TT: ? Piece Work Inspector: ? Procedure Marely Roblero - 05/22/2024 [facility] [address] [place], [place] [address] Mammography Report Signed Patient: Ines EspinosaMR#: [id number] : 1980Acct:[id number] Age/Sex: 43 / FADM Date: 04/24/24 Loc: HO.MAMMO Attending Dr: Shalonda Calderón MD Ordering Physician: Shalonda Lugo sults: 1Negative Date of Service: 04/24/24Follow Up: 1 Year From Orig ina Mammogram Procedure(s): MM tomosynthesis screening BI Accession Number(s): [id number] cc: Shalonda Lugo MD EXAMINATION: MM SCREENING DIGITAL BREAST TOMOSYNTHESIS, BILATERAL CLINICAL INFORMATION: Screening. Asymptomatic. COMPARISON: Mammography: This study is compared with prior exams dating back to 2019. TECHNIQUE: Digital breast tomosynthesis is performed in both the craniocaudal and mediolateral oblique views along with computer-aided detection (CAD). Synthesized 2D images are generated from the tomosynthesis. FINDINGS: The breasts are heterogeneously dense, which may obscure small masses (ACR BI-RADS breast composition Category c). There are no significant masses, abnormal calcifications, or other abnormalities. MM/MM tomosynthesis screening BI IMPRESSION: No mammographic evidence of malignancy. ASSESSMENT: BI-RADS BI-RADS 1 - Negative RECOMMENDATION: Routine annual mammography screening. 1 year F/U This examination should not preclude the clinical evaluation of a suspicious palpable abnormality. This patient's information was entered into a reminder system with a target due date for their next mammogram. Dictated By: Kiara Recinos MD Signed By: <Electronically signed by Kiara Recinos MD in OV> 05/22/2446 DD/ 7 TD/TT: Piece Work Inspector: Shalonda Calderón MD IMG BI PROCEDURES Edited Result - Final * Hepatitis C Antibody with Reflex to HCV, RNA, Quantitative, Real-Time PCR (02/24/2024 8:28 AM EDT) Hepatitis C Antibody Nonreactive Nonreactive [facility] Comment:Antibodies to HCV no t detected; does not exclude early acuteHCV infection. Blood Venous blood specimen / Unknown 02/24/2024 8:28 AM EDT 02/24/2024 8:36 AM EDT Shalonda Calderón MD LAB BLOOD ORDERAB LES Final Result Performing Organization Address [facility]/ZIP Co de Phone Number [facility] [address] [place] [phone] * HIV-1/2 Antigen and Antibodies, Fourth Generation, with Reflexes (02/24/2024 8:28 AM EDT) [facility] HIV AB/AG Nonreactive Nonreactive [facility] Comment:HIV-1 p24 Ag and/or HIV-1/HIV-2 Ab not detected.A test result that is nonreactive does not exclude thepossibility of exposure to or infection with HIV-1 and/orHIV-2. Nonreactive results in this assay for individualswith prior exposure to HIV-1 and/or HIV-2 may be due toantigen and antibody levels that are below the limit ofdetection of this assay.The [employer] HIV Ag/Ab Combo assay result andsupplemental assay results should be interpreted inconjunction with the patient's clinical presentation,history and other laboratory results. If the results areinconsistent with clinical evidence, additional testing issuggested to confirm the result. Blood Venous blood specimen / Unknown 02/24/2024 8:28 AM EDT 02/24/2024 8:36 AM EDT us Shalonda Calderón MD LAB BLOOD ORDERAB LES Final Result Performing Organization Address [facility]/ZIP Co de Phone Number [facility] [address] [place] [phone] * HPV mRNA E6/E7 w/Reflex to HPV Genotypes 16, 18/45 (05/18/2023 9:25 AM EDT) HPV nRNA E6/E7 Not Detected Not Detected [facility] Comment:Methodology: Transcr iption-Mediated AmplificationThis assay detects E6/E7 viral messenger RNA (mRNA) from 14high-risk HPV types (16,18,31,33,35,39,45,51,52,56,58,59,66,68).Cervical sources are required for HPV testing.If a vaginal source from a patient who has had atotal hysterectomy with removal of cervix wassubmitted, please contact the testing laboratoryfor alternative testing options.For additional information, please refer [email or web address]/faq/EFO170c2(This link if provided for information/educational purposes only.)THIS TEST WAS PERFORMED AT:[address] [place] [phone] CEJA MD HPV mRNA E6/E7 TNP [facility] HPV 16 RNA [facility] HPV 18/45 RNA [facility] 05/18/2023 9:25 AM EDT 05/19/2023 8:00 AM EDT us Analilia Rodriguez [facility] CYTOLOGY ORDERABLES F inal Result [facility] [address] [place] [phone] * Pap Smear (05/18/2023 9:25 AM EDT) 05/18/2023 9:25 AM EDT 05/19/2023 8:00 AM EDT Narrative [facility] - 06/10/2023 12:16 PM EDT ----- ------- Name: Francisca,Ines ? Age/Sex: 42/F ? : 1980 Unit#: [id number] ?? Attend Dr: ANALILIA RODRIGUEZ CNM ?Re05/18/23 ?Status: DEP REF ? Location: HO.HHCLNP ? Disch: ? ----- ------- SPEC : [id number] ?RECD: 05/19/23 ? STATUS: ??SOUT ? REQ NUM: [id number] ? KHAI: 05/18/23 ? SUBM DR: ANALILIA RODRIGUEZ CNM ? ENTERED: ??05/19/23 ?SP TYPE: Pap Smr ?OTHR DR: ? ORDERED: ??Pap Smear, PAP path review ? Interpretation ?? General Category: ? Negative for intraepithelial lesion/malignancy. ?? Adequacy: ? Endocervical component present. ?? Interpretation: ? Inflammation with associated cellular changes. ? HPV mRNA E6/E7: ?Not detected ? This assay detects E6/E7 viral messenger RNA (mRNA) from 14 high-risk HPV types (16, 18, ?? 31, 33, 35, 39, 45, 51, 52, 56, 58, 59, 66, 68). ?Clinical Information LMP: Unknown date Previous PAP test: 2019, WNL ? Material Received ?? ThinPrep-Cervical ----- ------- Signed (signature on file) Ana Crisostomo MD 06/10/236 ? ----- ------- ? END OF REPORT ? us Analilia Rodriguez [facility] CYTOLOGY ORDERABLES F inal Result [facility] [address] [place] [address] [phone] * Hm Colonoscopy (03/17/2018 5:23 PM EDT) Historical Provider HEALTH MAINTENANCE Final Result from Last 3 Months or Most Recently Relevant to Health Maintenance [facility] Subscriber Plan / Payer (Ef fective 2024-Present) Name:Ines Espinosa Relation to Subscriber:Self Name:Ines Espinosa Payer ID:Not on file Group ID:Not on file Type:Medicaid Address: [address] [phone] * Guarantor: FranciscaInes Account Type Relation to Patient Date of Phone Billing Address Personal/Family Self [address] Care Teams Steam Gigger Relationship Specialty Start Date End Date Shalonda Lugo MD [address] [place] [address] PCP - General Internal Medicine 06/10/23
--- OUTSIDE RECORDS SUMMARY | 2025-02-28 09:19 | XMS_ITS | Encounter Summary ---
Author Organization [employer] Address [address] [place] [address] [address] [place] [address] Care Team Providers Care Resident Surgeon Name Role Phone Shalonda Lugo MD Primary Care Pro vider Reason for Visit * Reason Onset Date Comments Med Refill 06/26/2024 Encounter Details Date Type Department Care Team ([facility] st Contact Info) Description 06/26/2024 Refill [facility] [address] [place] [address] Shalonda Lugo MD [address] [place] [address] Social History Tobacco Use Types Packs/Day Years [...] Description 04/03/2025 9:00 AM EDT Office Visit [facility] [address] [place] [address] Shalonda Lguo MD [address] [place] [phone] 04/08/2025 2:30 PM EDT Telemedicine [facility] [address] [place], [place] [phone] Bette Nolasco, RN [address] [place] [address] documented as of this encounter Visit Diagnoses Not on filedocumented in this encounter Additional Health Concerns Assessment Noted Time PHQ-9 Depression Total Score: 16 024 10:08 AM EDT documented as of this encounter Care Teams Resident Surgeon Relationship Specialty Start Date End Date Shalonda Lugo MD [address] [place] [address] PCP - General Internal Medicine 06/10/23 documented as of this encounter
[2025-03-18 15:28] VITALS: BMI 26.3
--- NOTE | 2025-03-19 08:30 | HO.ANESPROP2 ---
Documented by User: Kalani Dickerson NP 03/19/25 08:33 HPI - Anesthesia Eval Consult details Narrative: 44yo F for Colonoscopy Pt eval'd by [facility] cardiology for sinus tach. EKG and echo OK, holter pending. PMFSH Active Problems Active Problems: All Active Problems Sinus tachycardia (Acute) Pain syndrome, chronic (Acute) S/P cervical spinal fusion (Acute) Cervical disc herniation (Acute) Cervical radiculitis (Acute) Tendinitis of right rotator cuff (Acute) Hot flashes (Acute) Past Medical History Medical History Cervical disc herniation Right shoulder pain Tendinitis of right rotator cuff Personal history of COVID-19 (~2019) History of miscarriage (~2019) Hiatal hernia Low back pain GERD (gastroesophageal reflux disease) History of IBS Neck pain Insomnia Hot flashes Family History Family History Mother Hypertension Maternal Aunt Diabetes Family history of problems with anesthesia: No Surgical History Surgical History Hx of cervical spine surgery (11/17/23) History of esophagogastroduodenoscopy (EGD) Hx of colonoscopy History of Problems with Anesthesia: No Social History Social History Are you a primary child care leader to a significant other at home: Yes (2 children ages 14+18) Do you presently have visiting nurse or other home services: No Alcohol intake: never Comment: COUNTS CORRECT Patient Tobacco Use Status: Never used Tobacco Have you been hit, kicked, punched, or otherwise hurt by someone within the past year? If so, by whom?: No Are you DNR?: No Advance Directives: No Advance Directives Information Provided: Yes Current occupational status: unemployed Meds Allergies Allergy/AdvReac Type Severity Reaction Status Date / Time No Known Allergies Allergy Verified 03/19/25 09:02 [No Known Allergies*] Home Medications ?Medication ?Instructions ?Recorded ?Confirmed ?Last Taken ?Type acetaminophen 325 mg tablet 500 mg PO Q6H PRN pain 03/04/25 03/18/25 Unknown History cholecalciferol (vitamin D3) 25 25 mcg PO DAILY 03/04/25 03/18/25 Unknown History mcg (1,000 unit) tablet cyanocobalamin (vitamin B-12) 1,000 mcg PO DAILY 03/04/25 03/18/25 Unknown History 1,000 mcg tablet dicyclomine 10 mg capsule 10 - 20 mg PO Q6H PRN cramps 03/04/25 03/18/25 Unknown History drospirenone (contraceptive) 4 mg 4 mg PO DAILY 03/04/25 03/04/25 Unknown History (28) tablet (Slynd) hydroxyzine pamoate 50 mg capsule 50 mg PO BEDTIME PRN anxiety 03/04/25 03/18/25 Unknown History lidocaine 5 % topical patch patch topical 03/04/25 03/04/25 Unknown History loperamide 2 mg capsule 2 - 4 mg PO Q4-6H PRN diarrhea 03/04/25 03/18/25 Unknown History naloxone 4 mg/actuation nasal spray intranasal 03/04/25 03/04/25 Unknown History paroxetine HCl 10 mg tablet 10 mg PO QAM 03/04/25 03/18/25 Unknown History pregabalin 25 mg capsule 25 mg PO BEDTIME 03/04/25 03/18/25 Unknown History tramadol 50 mg tablet 50 mg PO Q8H PRN Pain 03/04/25 03/18/25 Unknown History zolpidem 10 mg tablet (Ambien) 5 - 10 mg PO BEDTIME PRN Insomnia 03/04/25 03/18/25 Unknown History Exam Height,Weight and Vital Signs: Height 5 ft 2 in Weight 65.317 kg Narrative Narrative: EKG 02/2025 sinus rhythm at 99/Min; slight nonspecific ST-T changes but otherwise no clear ischemic findings or other concerning abnormalities; normal AL and corrected QT. ECHO 2023 Conclusions: - Essentially normal study Assessment and Plan Assessment Anesthesia Assessment: Chart Reviewed Final Anesthetic Review Family History of Problems with Anesthesia: No History of Problems with Anesthesia: No Documented by User: Tracey Sewell MD 03/20/25 12:19 PMF Past Medical History Medical History Cervical disc herniation Right shoulder pain Tendinitis of right rotator cuff Personal history of COVID-19 (~2019) History of miscarriage (~2019) Hiatal hernia Low back pain GERD (gastroesophageal reflux disease) History of IBS Neck pain Insomnia Hot flashes Family History Family History Mother Hypertension Maternal Aunt Diabetes Surgical History Surgical History Hx of cervical spine surgery (11/17/23) History of esophagogastroduodenoscopy (EGD) Hx of colonoscopy Social History Social History Are you a primary child care leader to a significant other at home: Yes (2 children ages 14+18) Do you presently have visiting nurse or other home services: No Alcohol intake: never Comment: COUNTS CORRECT Patient Tobacco Use Status: Never used Tobacco Have you been hit, kicked, punched, or otherwise hurt by someone within the past year? If so, by whom?: No Are you DNR?: No Advance Directives: No Advance Directives Information Provided: Yes Current occupational status: unemployed Meds Allergies Allergy/AdvReac Type Severity Reaction Status Date / Time No Known Allergies Allergy Verified 03/19/25 09:02 [No Known Allergies*] Home Medications ?Medication ?Instructions ?Recorded ?Confirmed ?Last Taken ?Type acetaminophen 325 mg tablet 500 mg PO Q6H PRN pain 03/04/25 03/18/25 Unknown History cholecalciferol (vitamin D3) 25 25 mcg PO DAILY 03/04/25 03/18/25 Unknown History mcg (1,000 unit) tablet cyanocobalamin (vitamin B-12) 1,000 mcg PO DAILY 03/04/25 03/18/25 Unknown History 1,000 mcg tablet dicyclomine 10 mg capsule 10 - 20 mg PO Q6H PRN cramps 03/04/25 03/18/25 Unknown History drospirenone (contraceptive) 4 mg 4 mg PO DAILY 03/04/25 03/04/25 Unknown History (28) tablet (Slynd) hydroxyzine pamoate 50 mg capsule 50 mg PO BEDTIME PRN anxiety 03/04/25 03/18/25 Unknown History lidocaine 5 % topical patch patch topical 03/04/25 03/04/25 Unknown History loperamide 2 mg capsule 2 - 4 mg PO Q4-6H PRN diarrhea 03/04/25 03/18/25 Unknown History naloxone 4 mg/actuation nasal spray intranasal 03/04/25 03/04/25 Unknown History paroxetine HCl 10 mg tablet 10 mg PO QAM 03/04/25 03/18/25 Unknown History pregabalin 25 mg capsule 25 mg PO BEDTIME 03/04/25 03/18/25 Unknown History tramadol 50 mg tablet 50 mg PO Q8H PRN Pain 03/04/25 03/18/25 Unknown History zolpidem 10 mg tablet (Ambien) 5 - 10 mg PO BEDTIME PRN Insomnia 03/04/25 03/18/25 Unknown History Exam Airway Mallampati Class: II TM Dist: >3cm Neck ROM: Full Loose/Missing/Broken Teeth: No Heart: RRR Lungs: CTA Assessment and Plan Assessment Anesthesia Assessment: Anesthesia Plan Discussed Final Anesthetic Review NPO: Yes ASA Class: II Final Preanesthetic Review: Meds/Allgs Chart Reviewed, Consent Obtained/Reviewed and Anes Risks/Benef Reviewed Patient Risk: Low Procedure Risk: Low Anesthetic Plan Anesthetic Plan: MAC: Disposition: Standard PACU
[2025-03-20 10:07] VITALS: PULSE 100; RESP 17; TEMP 36.6; O2SAT 99
[2025-03-20 10:10] VITALS: BP 112/34
[2025-03-20 10:15] LABS: UPreg QC Valid YES
[2025-03-20 10:16] LABS: Urine Pregnancy NEGATIVE (NEGATIVE)
[2025-03-20] MEDS: Lactated Ringers 1,000 ML 100 ML IVCONT (10:19)
[2025-03-20 12:47] VITALS: BP 91/44; PULSE 84; RESP 18; TEMP 36.1; O2SAT 100
--- NOTE | 2025-03-20 12:51 | PM.OP ---
Brief Operative Note Date of Service: 03/20/25 Pre-op diagnosis: Screening Post-op diagnosis: other (Internal hemorrhoids) Procedure: Colonoscopy to the cecum and TI Surgeon: Devonte Bains MD Anesthesia: MAC Was an Psychiatric Nurse Practitioner used for this Procedure?: No Estimated blood loss (mL): 0 Pathology: none sent Condition: stable Disposition: PACU
[2025-03-20 13:01] VITALS: BP 106/46; PULSE 74; RESP 16; TEMP 36.1; O2SAT 100
--- NOTE | 2025-03-20 14:37 | OP_ITS ---
DATE OF SERVICE: 03/20/2025 SURGEON: Devonte Bains MD INDICATIONS: The patient presents for evaluation of colorectal cancer screening. Full consent has been obtained from her for this, including risks of bleeding and perforation. PREOPERATIVE DIAGNOSIS: Colorectal cancer screening. POSTOPERATIVE DIAGNOSIS: PROCEDURE PERFORMED: Colonoscopy to the cecum and terminal ileum. ESTIMATED BLOOD LOSS: COMPLICATIONS: ANESTHESIA: Medication used, monitored anesthesia care. ASSISTANTS: SPECIMENS: POSTOPERATIVE DIAGNOSES: Colorectal cancer screening, internal hemorrhoids. DESCRIPTION OF PROCEDURE: The patient was placed in the left lateral decubitus position. The digital rectal exam revealed no abnormalities. The Olympus video pediatric colonoscope was entered into the rectum and advanced easily to the cecum. Once in the cecum, I did identify normal-appearing cecal pouch with appendiceal orifice and a normal-appearing ileocecal valve. The terminal ileum was cannulated and appeared normal. The scope was withdrawn back in the colon. The entire cecum and ileocecal valve appeared normal. The scope was slowly withdrawn assessing all mucosal surfaces carefully. Preparation was excellent. I did not visualize any sign of polyps, colitis, nor angiodysplasia. Once in the rectum, scope was retroflexed visualizing internal hemorrhoids, but no other pathology. The rectal mucosa appeared normal. The scope was straightened and withdrawn from the patient. She tolerated procedure well and was returned to the recovery area in stable condition. IMPRESSION: Internal hemorrhoids. Otherwise normal colonoscopy. PLAN: Given today's negative exam and negative family history, I would recommend a followup colonoscopy in 10 years for further screening. Her only family history is that of a grandmother with colon cancer, but no first-degree relatives. She will otherwise see me on a p.r.n. basis. She will continue her dicyclomine and Imodium for the irritable bowel syndrome as needed. MD MIKAEL Borges/BRANDOL / [phone]
== END 2025-03-20 13:26 | disposition home or self-care (01) ==
PROVIDERS: Nurse Practitioner; PCP Student in an Organized Health Care Education/Training Program; Visit Provider Internal Medicine
PROC: 0DJD8ZZ Inspection of Lower Intestinal Tract, Via Natural or Artificial Opening Endoscopic (ICD-10-PCS; CPT 45378; principal; 2025-03-20 11:40)
DX: Z12.11 Encounter for screening for malignant neoplasm of colon (principal); K64.8 Other hemorrhoids; K58.0 Irritable bowel syndrome with diarrhea; K21.9 Gastro-esophageal reflux disease without esophagitis; M54.2 Cervicalgia; M79.601 Pain in right arm; Z79.1 Long term (current) use of non-steroidal anti-inflammatories (NSAID); Z79.899 Other long term (current) drug therapy; Z98.890 Other specified postprocedural states
CPT/HCPCS: 45378; 81025; J2003; J2704

== ENCOUNTER 2025-03-29 08:04 | Outpatient (REF) | payer MEDICAID, SELFPAY ==
--- OUTSIDE RECORDS SUMMARY | 2025-03-29 08:07 | XMS_ITS ---
Author Organization [facility] Address [address] [place] [address] Care Team Providers Care Precision Assembly Inspector Name Role Phone Shalonda Lugo Primary Care Provider Devonte Bateman Unavailable [phone] Allergies No Known Allergies REASON FOR VISIT [...] screening (Z12.11) Active confirmed Problem Preprocedural examination ([id number]) Preprocedural examination (Z01.818) Active confirmed Vital Signs Temperature 97.8 degrees Fahrenheit 01/10/20 25 Blood pressure systolic 001 mm Hg 01/10/20 25 Blood pressure diastolic 01 mm Hg 025 Height 62 in 01/09/2025 Weight 144.2 lbs 01/09/2025 BMI 26.37 kg/m2 01/09/2025 Procedures Procedure Date Ordered Date Performed Result Body Sit e COLONOSCOPY 01/09/2025 N/A Encounters Encounter Location Date Provider Diagnosis [facility] [address] [place] [phone] 01/09/2025 Devonte Bains Colon cancer screeni ng [...] referral to the [facility] for your neck pain Overall, Ines appears [...] referral to the [facility] for your neck pain Pending Test Test Name Order Date COLONOSCOPY 01/09/2025 Next Appt Details Follow Up: prn, Reason: Progress Notes * INES RUANODOB:1980 (44 yo F)Acc No.[id number]:01/09/2025 Progress Notes Patient:?INES RUANO Provider:?Devonte Bains MD :1980???Age:44 Y???Sex:Female D ate:01/09/2025 Address:[address] [place] [address] [address] [facility] Pcp:Shalonda Calderón Subjective: * Chief Complaints: * [...] bowel syndrome. Her last colonoscopy was in 2018. That colonoscopy and the 1 the year [...] referral to the [facility] for your neck pain?? * Immunizations:? Influenza (Not administered - Refused: Patient decision) * Procedure Codes:?32650 DIAGN OSTIC [id number] COLORECTAL CA SCREEN DOC [id number] TOBACCO [id number]-RCABD3421 BP SCR NOT PRFRM REC REASON [id number] RCMND FLW-UP 10 YRS DOCD * Preventive Medicine:? ??Counseling:?Care goal follow-up plan:?Above Normal BMI Follow-up?Dietary management education, guidance, and counseling,?BMI management provided?Yes.? * Follow Up:?prn * * Sign off status: Completed true * Provider:?Devonte Bains MD Date:? 025 Generated for Israel curtis/Nimesh/Soledad on:?03/29/2025 08:07 AM EDT History and Physical Notes * [...]
[2025-03-29 08:47] LABS: Estimated Average Glucose 105 mg/dL; Hemoglobin A1c % 5.3 % (<6.0)
[2025-03-29 08:50] LABS: Eosinophils Absolute Auto 0.1 X10*3/uL (0.0-0.4); Imm Gran Abs Auto 0.01 X10*3/uL (0.00-0.03); Imm Gran Pct Auto 0.3 % (0.0-0.4); Lymphocytes Absolute Auto 1.3 X10*3/uL (1.2-4.9); PLT CLUMP 1; Red Cell Distribution Width 12.8 % (11.0-16.0); SCAN SMEAR FLAG 1
[2025-03-29 09:16] LABS: Alanine Aminotransferase 11 U/L (0-31); Albumin Level 4.5 g/dL (3.5-5.0); Alkaline Phosphatase 70 U/L (39-117); Anion Gap 10 (12-20); Aspartate Amino Transferase 21 U/L (5-31); Basophils Percent Auto 0.8 % (0-2); Bilirubin Total 0.5 mg/dL (0.0-1.0); Blood Urea Nitrogen 10 mg/dL (9-16); Calcium 9.1 mg/dL (8.4-10.2); Carbon Dioxide 27 mmol/L (22-29); Chloride 105 mmol/L (96-108); Cholesterol 225 mg/dL (<200); Eosinophils Percent Auto 1.4 % (0-4); Estimated Glomerular Filt Rate > 60; Glucose Random 97 mg/dL (60-115); HDL Cholesterol 90 mg/dL (>40); Hematocrit 36.1 % (37.0-47.0); Hemoglobin 12.8 g/dl (12.0-16.0); LDL Cholesterol Calculated 118 mg/dL (<100); Lymphocytes Percent Auto 37.1 % (20-40); MANUAL DIFF FLAG SCAN; Mean Corpuscular HGB Conc 35.5 g/dl (31.0-35.0); Mean Corpuscular Volume 87.4 fL (80.0-98.0); Monocytes Absolute Auto 0.3 X10*3/uL (0.1-1.2); Monocytes Percent Auto 7.2 % (2-11); Neutrophils Absolute Auto 1.9 x10*3/uL (2.0-8.3); Neutrophils Percent Auto 53.2 % (45-73); Platelet Count 208 X10*3/uL (160-400); Potassium 4.2 mmol/L (3.3-5.1); Red Blood Count 4.13 X10*6/uL (4.20-5.50); Sodium 138 mmol/L (135-145); Total Protein 7.1 g/dL (6.5-8.0); Triglycerides 89 mg/dL (<150); White Blood Count 3.6 X10*3/uL (4.8-10.8)
[2025-03-29 09:28] LABS: HBsAGNum1 0.29 S/CO (0.00-0.99); HIV AB/AG Nonreactive (Nonreactive); HIV Num 1 0.06 S/CO (0.00-0.99); Hepatitis B Surface Antigen Negative (Negative); ~HepC Num1 0.05 S/CO (0.00-0.79); ~Hepatitis C Antibody Nonreactive (Nonreactive)
[2025-03-29 09:29] LABS: SLIDE REVIEW VERIFIED
[2025-03-29 09:31] LABS: Syphilis Screen Nonreactive (Nonreactive)
[2025-03-29 09:37] LABS: TSH reflex Free T4 0.69 uIU/mL (0.32-4.0); Vitamin D 25-OH Total 31.8 ng/mL (>30)
[2025-03-29 09:43] LABS: Folate 11.1 ng/mL (> or = 4.0); Vitamin B12 202 pg/mL (200-900)
[2025-03-29 11:19] LABS: CT PCR NOT DETECTED (Not Detect.); NG PCR NOT DETECTED (Not Detect.)
[2025-04-10 16:29] LABS: Parietal Cell Antibody <=20.0 Unit (<=20.0)
== END 2025-03-29 08:05 | disposition home or self-care (01) ==
LOC: HO.LAB 08:04
PROVIDERS: PCP Student in an Organized Health Care Education/Training Program; Visit Provider Student in an Organized Health Care Education/Training Program
DX: Z00.00 Encounter for general adult medical examination without abnormal findings (principal); Z11.3 Encounter for screening for infections with a predominantly sexual mode of transmission; Z11.4 Encounter for screening for human immunodeficiency virus [HIV]; E53.8 Deficiency of other specified B group vitamins
CPT/HCPCS: 80053; 80061; 82306; 82607; 82746; 83036; 83516; 84443; 85025; 86780; 86803; 87340; 87389; 87491; 87591

== ENCOUNTER 2025-04-06 08:41 | Outpatient (REF) | payer MEDICAID, SELFPAY ==
--- NOTE | ~2025-04-06 | MR_ITS ---
CLINICAL HISTORY: M25.511 - Pain in right shoulder MR right shoulder without gadolinium Comparison: None provided Findings: No acute fracture or pathologic bone lesion. No significant arthritic changes. Type II acromion without downsloping. No joint effusion. No rotator cuff tears. There is mild tenosynovitis of the long head of the biceps tendon. The rest of the visualized muscles and tendons are unremarkable. There is no evidence of a rotator cuff tear. Glenoid labrum is intact. IMPRESSION: There is mild tenosynovitis of the long head of the biceps tendon. This document has been electronically signed by: Alberto Davila MD on 04/06/2025 09:42:58
== END 2025-04-06 08:42 | disposition home or self-care (01) ==
LOC: HO.MRI 08:41
PROVIDERS: PCP Student in an Organized Health Care Education/Training Program; Visit Provider Nurse Practitioner Family
DX: M25.511 Pain in right shoulder (principal); M75.81 Other shoulder lesions, right shoulder; M75.41 Impingement syndrome of right shoulder
CPT/HCPCS: 73221

== ENCOUNTER → 2025-04-06 08:45 | Outpatient (BNV) | payer MEDICAID, SELFPAY | PROVIDERS: PCP Student in an Organized Health Care Education/Training Program; Visit Provider Radiology Diagnostic Radiology | DX: M65.821 Other synovitis and tenosynovitis, right upper arm (principal) | CPT/HCPCS: 73221 ==

== ENCOUNTER 2025-05-03 10:08 | Outpatient (AMB) | payer MEDICAID, SELFPAY ==
--- OUTSIDE RECORDS SUMMARY | 2025-03-20 07:40 | XMS_ITS ---
Author Organization [facility] Address [address] [place] [address] Care Team Providers Care Marine Architect Name Role Phone Shalonda Lugo Primary Care Provider Devonte Bateman [phone] REASON FOR VISIT screening Encounters Encounter Location Date Provider Diagnosis [facility] [address] [place], [place] [phone] 03/20/2025 Devonte Bains Colon cancer scree kami Z12.11 and Internal hemorrhoids K64.8 Assessments Encounter Date Diagnosis (ICD Code) Assessment Notes Treatment Notes Treatment Clinical Notes Section Notes 03/20/2025 Colon cancer screening (ICD-10 - Z12.11) 03/20/2025 Internal hemorrhoids (ICD-10 - K64.8) Plan Of Treatment No Information Progress Notes * ALDENWILLIAM REYESDOB:1980 (44 yo F)Acc No.[id number]:03/20/2025 COLON WITH MAC 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
--- NOTE | 2025-05-03 10:09 | A.OFFVIS_ITS ---
Vital Signs 05/03/25 10:12 Height 5 ft 2 in Weight 145 lb BMI 26.5 BP 116/68 Blood Pressure Location Lt brachial Position Sitting Pulse 111 H Pulse Source Pulse Oximeter Pulse Oximetry (%) 100 Oxygen Delivery Method Room Air Intake Visit Reasons: Follow up MRI results Intake Note: Pain today 6/10 Court Administrator Required: No Accompanied by: Self / Same As Patient Allergies No Known Allergies (No Known Allergies*) Allergy (Verified 05/03/25 10:13) HPI Comments Details: The patient is a 44-year-old female presenting with right shoulder pain and discuss shoulder MRI results. The pain persists across right shoulder with all ranges of motion and has remained unchanged since the previous visit. Physical therapy was completed without improvement, and the pain is notably worse in the morning, movements, lifting, pulling, grasping or squeezing activities or sleeping on right side. Pain is rated at 6/10. MRI findings showed mild tenosynovitis of the long head of the biceps tendon. The patient has not undergone any prior shoulder injections. Denies any recent cough, cold, infection, fever or any other significant changes in medical history since last office visit. PRIOR: The patient is a 44-year-old female presenting with chronic neck pain radiating to right shoulder and right arm. She underwent anterior diskectomy and fusion C5-C6 for C6 radiculopathy in 11/[address] Pinedo, but post-surgical outcomes did not result in symptom relief. She reports ongoing and constant throbbing neck pain radiating to the right shoulder, arm and hip, impacting her daily life, mood, sleep and quality of life. The pain is described as throbbing, stabbing, and tingling with a intensity of 9/10 at worst in the afternoon and evening hours, slightly better at 7/10 in the mornings. She has tried numerous pain management strategies including diclofenac gel, lidocaine patch, tramadol, pregabalin, Tylenol, and two rounds of physical therapy; however, none have provided sufficient relief. The pain is aggravated by movements, especially lifting her arm overhead and sleeping on the right side, weather changes, and heat. Imaging including cervical spine xrays, cervical spine and brain MRIs and CT myelogram revealed no spinal cord or nerve involvement, and EMG testing was normal. She also saw Neurologist Dr. Humphries 08/2024, was told she has normal EMG and tried gabapentin and then was started on carbamazepine with no relief but gave her significant nausea thus no longer taking it. Accompanying her symptomatology is significant right shoulder pain, potentially preceding her neck surgery per patient, with a history of rotator cuff tendinitis. Additionally, she suffers from insomnia and depression, for which she sees a mental counselor. She is wearing right wrist brace for support. - Onset: Post-surgical, chronic since neck surgery - Quality: Throbbing, pulsing, stabbing, pinching, tingling, cramping, burning, tiring, dull, sore, radiating, tiring, exhausting - Location: Neck, right shoulder and arm, back, radiating to hip - Exacerbating Factors: Movements, overhead reaching, lifting, sleeping on right side, weather changes - Relieving Factors: None noted - Interference: Sleep affected, daily activities impacted, emotional distress - Affect: Pain exacerbates insomnia and depression; patient sees a counselor - Analgesia: Tramadol, lidocaine patch, pregabalin and gabapentin tried with no relief; pain levels reach 9/10, goal is better pain control - Adverse Effects: Nausea with carbamazepine - Activities of Daily Living: Severely impacted by pain, described as exhausting - Aberrant Drug Related Behaviors: None reported Oswestry Neck Pain Disability Score=32 PFSH Medical History Cervical disc herniation Right shoulder pain Tendinitis of right rotator cuff Personal history of COVID-19 (~2019) History of miscarriage (~2019) Hiatal hernia Low back pain GERD (gastroesophageal reflux disease) History of IBS Neck pain Insomnia Hot flashes Surgical History Hx of cervical spine surgery (11/17/23) History of esophagogastroduodenoscopy (EGD) Hx of colonoscopy Family History Mother Hypertension Maternal Aunt Diabetes Social History Are you a primary chiropractic care to a significant other at home: Yes (2 children ages 14+18) Do you presently have visiting nurse or other home services: No Alcohol intake: never Comment: COUNTS CORRECT Patient Tobacco Use Status: Never used Tobacco Current occupational status: unemployed Review of Systems Const All systems reviewed & are unremarkable except as noted in HPI and below Physical Exam Vital Signs: Last Vital Signs Pulse 111 H 05/03/25 10:12 BP 116/68 05/03/25 10:12 Pulse Ox 100 05/03/25 10:12 Oxygen Delivery Method Room Air 05/03/25 10:12 BMI result Body Mass Index 26.5 General: Appears afebrile. Alert and oriented. Mood and affect appropriate. Follows and participates in conversation appropriately. Respiratory effort is unlabored. No cough. Able to transition from sit to stand unassisted. Ambulates with bilaterally normal heel strike and toe off. Extrem Right upper extremity: shoulder/upper arm (Limited ROM due to pain with I/E rotation, worse with overhead activities) Details: normal to inspection, tenderness Location: over the biceps tendon and over the subacromial bursa and crepitus; no swelling, no ecchymosis, no deformity and no unusual warmth Results Reviewed Results Reviewed: MR shoulder RT wo con 04/06/25 CLINICAL HISTORY: M25.511 - Pain in right shoulder MR right shoulder without gadolinium Comparison: None provided Findings: No acute fracture or pathologic bone lesion. No significant arthritic changes. Type II acromion without downsloping. No joint effusion. No rotator cuff tears. There is mild tenosynovitis of the long head of the biceps tendon. The rest of the visualized muscles and tendons are unremarkable. There is no evidence of a rotator cuff tear. Glenoid labrum is intact. IMPRESSION: There is mild tenosynovitis of the long head of the biceps tendon. XR SHOULDER, RIGHT 07/01/23 CLINICAL INFORMATION: Pain in right shoulder COMPARISON: None available. TECHNIQUE: AP external rotation, Grashey, scapular Y, and axillary views of the right shoulder. FINDINGS: The bones and soft tissues are normal. No fracture. Glenohumeral and acromioclavicular alignment is anatomic with normal joint space. No abnormal soft tissue calcifications. IMPRESSION: No bony abnormality. XR cervical spine 4V 01/19/24 CLINICAL INFORMATION: Arthrodesis status COMPARISON: Cervical spine radiographs 06/10/2023 TECHNIQUE: 4 views of the cervical spine were obtained. FINDINGS: The cervical spine is visualized to the level of C7-T1 on the lateral view. Vertebral body alignment is maintained. No instability on flexion extension views. Status post C5-C6 anterior cervical discectomy and spinal fusion. No evidence of hardware fracture or complication. No definite osseous fusion noted across the vertebral bodies. Vertebral body height is maintained. Disc space heights are otherwise maintained. No prevertebral soft tissue swelling. IMPRESSION: Status post C5-C6 anterior cervical discectomy and spinal fusion. No evidence of hardware fracture or complication. No instability on flexion extension views. CT CERVICAL SPINE WITHOUT CONTRAST 03/23/24 CLINICAL INFORMATION: Cervical radiculopathy COMPARISON: MRI cervical spine on 01/28/2024 FINDINGS: There is normal filling of the lower cranial cerebral spinal fluid space in the thecal sac with intrathecal contrast. The visualized cervical spinal cord is normal in position and caliber. No impingement or displacement is seen. The thecal sac is intact without effacement. C1/C2: Bony structures are intact with normal alignment. There is no spinal stenosis. C2/C3: Bony structures are intact with normal alignment. There is no spinal stenosis. Bilateral C2/C3 neuroforamina are patent. Bilateral apophyseal joints are intact with normal alignment. C3/C4: Bony structures are intact with normal alignment. There is no spinal stenosis. Bilateral C3/C4 neuroforamina are patent. Bilateral apophyseal joints are intact with normal alignment. C4/C5: Bony structures are intact with minimal kyphosis. There is no spinal stenosis. Bilateral C4/C5 neuroforamina are patent. Bilateral apophyseal joints are intact with normal alignment. C5/C6: Status post ACDF, fixation with integrated interbody fixation device. Bony structures are intact with normal alignment. There is no spinal stenosis. Bilateral C5/C6 neuroforamina are patent. Bilateral apophyseal joints are intact with normal alignment. C6/C7: Bony structures are intact with normal alignment. There is no spinal stenosis. Bilateral C6/C7 neuroforamina are patent. Bilateral apophyseal joints are intact with normal alignment. C7/T1: Bony structures are intact with normal alignment. There is no spinal stenosis. Bilateral C7/T1 neuroforamina are patent. Bilateral apophyseal joints are intact with normal alignment. IMPRESSION: 1. Status post ACDF, fixation with interbody fixation device at C5/C6. 2. No evidence of spinal stenosis or neural foraminal narrowing. FLUOROSCOPIC CERVICAL MYELOGRAM 03/23/24 INDICATION: Cervical radiculopathy. History of C5-C6 arthrodesis. Limited MRI findings due to ferromagnetic artifact. TECHNIQUE/FINDINGS: Risks and benefits and possible complications were discussed with the patient and the consent form was signed. Patient was placed prone on the fluoroscopy table. The back was prepped and draped in routine sterile fashion. Betadine was used as a skin antiseptic. Utilizing fluoroscopic guidance, the L3-4 interlaminar space was accessed with a 22 gauge Nereyda spinal needle and clear CSF fluid was obtained. 10 mL of Isovue-M 300 was then injected through the needle and contrast was observed entering the thecal sac. The fluoroscopic table was then tilted in the Trendelenburg position, and contrast was observed flowing upwards to the cervical spine. The needle was removed without immediate complications. The patient was then transferred to CT for post myelographic imaging. Total fluoroscopy time: 2.13 min DAP: 129 dGy M/2 Images: 1 cine with 6 spot images IMPRESSION: Successful fluoroscopic guided intrathecal instillation of Isovue-M 300. Patient will undergo subsequent CT cervical myelographic imaging. Assessment & Plan Assessment & Plan (1) Tenosynovitis of right shoulder: Code(s): M65.911 - Unspecified synovitis and tenosynovitis, right shoulder Category: Medical (2) Neck pain: Comment: radiating down right arm Code(s): M54.2 - Cervicalgia Category: Medical (3) S/P cervical spinal fusion: Code(s): Z98.1 - Arthrodesis status Category: Surgical (4) Right shoulder pain: Code(s): M25.511 - Pain in right shoulder Category: Medical (5) Tendinitis of right rotator cuff: Code(s): M75.81 - Other shoulder lesions, right shoulder Category: Medical Plan The management plan involves administering a cortisone injection to address the right shoulder pain. Should the injection fail to alleviate the symptoms, a referral to Orthopedics will be pursued for further evaluation. Previously also discussed Sprint PNS trial vs RFA for ongoing shoulder and neck pain. Schedule right shoulder steroid injection at the bicipital groove with local and US guidance. Expectations, risks and benefits were reviewed. Patient is aware she will be contacted to schedule this procedure. Patient may gradually return to motion with home exercise program focusing on shoulder mechanics, reconsider PT for scapular stabilization, and stretching. Avoid heavy lifting or provocative activity that increase shoulder pain. All questions and concerns have been answered and patient agreed with the treatment plan. Follow-up after injection and sooner as needed. Patient was informed and verbally consented to the use of an ambient scribe for clinic note documentation during this visit. Coding Level of Care Code Est Pt Level 4 (98758) Complex EM visit Add On G2211 Diagnoses Tenosynovitis of right shoulder M65.911 Neck pain M54.2 S/P cervical spinal fusion Z98.1 Right shoulder pain M25.511 Tendinitis of right rotator cuff M75.81
[2025-05-03 10:12] VITALS: BP 116/68; PULSE 111; O2SAT 100; BMI 26.5
--- OUTSIDE RECORDS SUMMARY | 2025-05-03 10:27 | XMS_ITS | Encounter Summary ---
Author Organization [employer] Address [address] [facility] [address] [place] [address] Care Team Providers Care Backhaul Driver Name Role Phone Shalonda Lugo MD Primary Care Pro vider Encounter Details Date Type Department Care Team ([facility] st Contact Info) Description 03/29/2025 Results Follow-Up [facility] [address] [place] [address] Shalonda Lugo MD [address] [place] [address] CBC auto differential, Slide Review Social History Tobacco Use Types Packs/Day Years [...] as of this encounter Miscellaneous Notes * Result Encounter Note - Shalonda Calderón MD - 03/29/2025 9:51 AM EDT Please call patient to advise to come to already scheduled apt with me to go over abnormal labs Thanks documented in this encounter Plan of Treatment Upcoming Encounters Date Type Department Care Team (Late st Contact Info) Description 06/07/2025 10:00 AM EDT Clinical Support [address] [address] Bette Nolasco RN [address] [place] [phone] 07/04/2025 9:30 AM EDT Office Visit [facility] [address] [place] [phone] Shalonda Lugo MD [address] [place] [phone] documented as of this encounter Visit Diagnoses Not on filedocumented in this encounter Additional Health Concerns Assessment Noted Time PHQ-9 Depression Total Score: 16 025 11:44 AM EDT documented as of this encounter Care Teams Backhaul Driver Relationship Specialty Start Date End Date Shalonda Lugo MD [address] [place] [phone] PCP - General Internal Medicine 06/10/23 documented as of this encounter
== END 2025-05-03 10:22 | disposition home or self-care (01) ==
LOC: HO.PMC 10:08
PROVIDERS: PCP Student in an Organized Health Care Education/Training Program; Visit Provider Nurse Practitioner Family
DX: M65.911 Unspecified synovitis and tenosynovitis, right shoulder (principal); M54.2 Cervicalgia; Z98.1 Arthrodesis status; M25.511 Pain in right shoulder; M75.81 Other shoulder lesions, right shoulder
CPT/HCPCS: 99214

== ENCOUNTER → 2025-05-03 10:08 | Outpatient (BNVA) | payer MEDICAID, SELFPAY | PROVIDERS: PCP Student in an Organized Health Care Education/Training Program; Visit Provider Nurse Practitioner Family | DX: M25.511 Pain in right shoulder (principal); M65.911 Unspecified synovitis and tenosynovitis, right shoulder; M75.81 Other shoulder lesions, right shoulder; M54.2 Cervicalgia; Z98.1 Arthrodesis status | CPT/HCPCS: 99212 ==

== ENCOUNTER 2025-05-27 10:15 | Outpatient (AMB) | payer MEDICAID, SELFPAY ==
--- NOTE | 2025-05-27 10:18 | A.OFFVIS_ITS ---
Vital Signs 05/27/25 10:20 Height 5 ft 2 in Weight 146 lb BMI 26.7 BP 132/65 Blood Pressure Location Lt brachial Position Sitting Respiration 16 Pulse 110 H Pulse Source Pulse Oximeter Pulse Oximetry (%) 97 Oxygen Delivery Method Room Air Intake Visit Reasons: Right bicipital groove shoulder inj Smoking Pipe Driller And Threader Required: No Biology Specimen Technician: Biology Specimen Technician Present Accompanied by: Moo Feldman Allergies No Known Allergies (No Known Allergies*) Allergy (Verified 05/27/25 10:20) Medication List - Last Reconciled 05/27/25 by Kathrin Gómez LPN acetaminophen 500 mg PO Q6H PRN cholecalciferol (vitamin D3) 25 mcg PO DAILY cyanocobalamin (vitamin B-12) 1,000 mcg PO DAILY dicyclomine 10 - 20 mg PO Q6H PRN drospirenone (contraceptive) (Slynd) 4 mg PO DAILY hydroxyzine pamoate 50 mg PO BEDTIME PRN lidocaine 5% patches topical loperamide 2 - 4 mg PO Q4-6H PRN meloxicam 15 mg PO DAILY PRN methocarbamol 500 mg PO BID PRN naloxone 4 mg/actuation intranasal paroxetine HCl 10 mg PO QAM pregabalin 25 mg PO BEDTIME tramadol 50 mg PO Q8H PRN zolpidem (Ambien) 5 - 10 mg PO BEDTIME PRN HPI HPI Right bicipital groove shoulder inj: Details: History of Present Illness The patient is a 44-year-old female presenting for a right bicipital groove injection due to long biceps tendinitis. The condition was identified through MRI imaging, which confirmed the presence of tendinitis in the right bicipital groove. The patient experiences tenderness over the affected area, with pain reproduced upon supination. Pain Description - Location: Right bicipital groove - Quality: Tenderness with pain on supination Physical Exam - Musculoskeletal: Tenderness overlying the right bicipital groove with reproduction of pain on supination Results - Imaging: MRI confirmed right bicipital groove long biceps tendinitis Procedure - Procedure: Right bicipital groove injection - Consent: Informed consent was obtained from the patient - Technique: Ultrasound was used to visualize the right bicipital groove and biceps tendon - Injection: 20 mg of Kenalog mixed with 0.25% ropivacaine 1 mL was injected using a 25-gauge needle - Outcome: Patient tolerated the procedure well - Images saved to record [facility] Medical History Cervical disc herniation Right shoulder pain Tendinitis of right rotator cuff Personal history of COVID-19 (~2019) History of miscarriage (~2019) Hiatal hernia Low back pain GERD (gastroesophageal reflux disease) History of IBS Neck pain Insomnia Hot flashes Surgical History Hx of cervical spine surgery (11/17/23) History of esophagogastroduodenoscopy (EGD) Hx of colonoscopy Family History Mother Hypertension Maternal Aunt Diabetes Social History Are you a primary animal caregiver to a significant other at home: Yes (2 children ages 14+18) Do you presently have visiting nurse or other home services: No Alcohol intake: never Comment: COUNTS CORRECT Patient Tobacco Use Status: Never used Tobacco Current occupational status: unemployed Physical Exam Vital Signs: Last Vital Signs Pulse 110 H 05/27/25 10:20 Resp 16 05/27/25 10:20 BP 132/65 05/27/25 10:20 Pulse Ox 97 05/27/25 10:20 Oxygen Delivery Method Room Air 05/27/25 10:20 BMI result Body Mass Index 26.7 Assessment & Plan Assessment & Plan (1) Tendinitis of right rotator cuff: Code(s): M75.81 - Other shoulder lesions, right shoulder Category: Medical Plan Plan - Follow-up: Patient will follow up as needed after the procedure Patient was informed and verbally consented to the use of an ambient scribe for clinic note documentation during this visit. Discussion Notes I discussed the procedure details with the patient, including the use of ultrasound guidance for the injection and the medications involved. Informed consent was obtained, and the patient was advised to follow up as needed. Patient Instructions - Follow up with the clinic as needed after the procedure. Coding Level of Care Code Procedure Only Diagnoses Tendinitis of right rotator cuff M75.81
[2025-05-27 10:20] VITALS: BP 132/65; PULSE 110; RESP 16; O2SAT 97; BMI 26.7
== END 2025-05-27 10:48 | disposition home or self-care (01) ==
LOC: HO.PMC 10:16
PROVIDERS: PCP Student in an Organized Health Care Education/Training Program; Visit Provider Internal Medicine
DX: M75.81 Other shoulder lesions, right shoulder (principal)
CPT/HCPCS: 20550

== ENCOUNTER → 2025-05-27 10:15 | Outpatient (BNVA) | payer MEDICAID, SELFPAY | PROVIDERS: PCP Student in an Organized Health Care Education/Training Program; Visit Provider Internal Medicine | DX: M75.81 Other shoulder lesions, right shoulder (principal) | CPT/HCPCS: 20550; J2795; J3301 ==

== ENCOUNTER 2025-06-10 08:40 | Outpatient (REF) | payer MEDICAID, SELFPAY ==
--- NOTE | ~2025-06-10 | MM_ITS ---
EXAMINATION: MM SCREENING DIGITAL BREAST TOMOSYNTHESIS, BILATERAL CLINICAL INFORMATION: Screening. Asymptomatic. COMPARISON: Mammography: Comparison is made with available priors TECHNIQUE: Digital breast mammography with tomosynthesis is performed in both the craniocaudal and mediolateral oblique views along with computer-aided detection (CAD). FINDINGS: The breasts are heterogeneously dense, which may obscure small masses (ACR BI-RADS breast composition Category c). There are no significant masses, abnormal calcifications, or other abnormalities. MM/MM tomosynthesis screening BI IMPRESSION: No mammographic evidence of malignancy. ASSESSMENT: BI-RADS BI-RADS 1 - Negative RECOMMENDATION: Routine annual mammography screening. 1 year F/U This examination should not preclude the clinical evaluation of a suspicious palpable abnormality. This patient's information was entered into a reminder system with a target due date for their next mammogram. Electronically signed by: Marcelina Cristobal DO 06/12/2025 12:17 PM EDT
--- OUTSIDE RECORDS SUMMARY | 2025-06-10 09:09 | XMS_ITS | Encounter Summary ---
Author Organization [employer] Address [address] [facility] [address] [facility] [place] [address] Care Team Providers Care Online Producer Name Role Phone Shalonda Lugo MD Primary Care Pro vider Encounter Details Date Type Department Care Team ([facility] st Contact Info) Description 02/14/2025 Orders Only [facility] [address] [place], [place] [id number] Provider, MD [place] Social History Tobacco Use [...] Care Team (Late st Contact Info) Description 07/04/2025 9:30 AM EDT Office Visit [facility] [address] [place] [phone] Shalonda Lugo MD [address] [place] [phone] 08/26/2025 1:00 PM EST Telemedicine [facility] [address] [place] [address] Bette Nolasco, RN [address] [place] [address] documented as of this encounter Procedures Procedure [...] documented as of this encounter Care Teams Online Producer Relationship Specialty Start Date End Date Shalonda Lugo MD [address] [place] [phone] PCP - General Internal Medicine 06/10/23 documented as of this encounter
== END 2025-06-10 08:41 | disposition home or self-care (01) ==
LOC: HO.MAMMO 08:40
PROVIDERS: PCP Student in an Organized Health Care Education/Training Program; Visit Provider Student in an Organized Health Care Education/Training Program
DX: Z12.31 Encounter for screening mammogram for malignant neoplasm of breast (principal)
CPT/HCPCS: 77063; 77067

== ENCOUNTER → 2025-06-10 08:45 | Outpatient (BNV) | payer MEDICAID, SELFPAY | PROVIDERS: PCP Student in an Organized Health Care Education/Training Program; Visit Provider Internal Medicine | DX: Z12.31 Encounter for screening mammogram for malignant neoplasm of breast (principal) | CPT/HCPCS: 77063; 77067 ==

== ENCOUNTER 2025-06-19 14:18 | Outpatient (REF) | payer MEDICAID, SELFPAY ==
--- OUTSIDE RECORDS SUMMARY | 2025-03-20 07:40 | XMS_ITS ---
Author Organization [facility] Address [address] [place] [address] Care Team Providers Care Arborist Name Role Phone Shalonda Lugo Primary Care Provider Devonte Bateman [phone] REASON FOR VISIT screening Encounters Encounter Location Date Provider Diagnosis [facility] Out[facility] [address] [place], [place] [phone] 03/20/2025 Devonte Bains Colon cancer scree kami Z12.11 and Internal hemorrhoids K64.8 Assessments Encounter Date Diagnosis (ICD Code) Assessment Notes Treatment Notes Treatment Clinical Notes Section Notes 03/20/2025 Colon cancer screening (ICD-10 - Z12.11) 03/20/2025 Internal hemorrhoids (ICD-10 - K64.8) Plan Of Treatment No Information Progress Notes * ALDENTESSY REYESDOB:1980 (44 yo F)Acc No.[id number]:03/20/2025 COLON WITH MAC 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 Screening. * Medical History: Objective: * Vitals: Assessment: * Assessment: 1. C olon cancer screening - Z12.11 (Primary) 2 . I nternal hemorrhoids - K64.8 Plan: * Treatment: * Procedure Codes: 4 5378 DIAGNOSTIC COLONOSCOPY * * The named appointment provid er may or may not be the originator of this progress note, and it is not deemed complete until electronically signed by the appointment provider. Sign off status: Pending * Provider: Hanna Bains MD Date: 0 03/20/2025 Generated for Israel curtis/Nimesh/Hawkitting on: 0 06/19/2025 04:37 PM EDT
--- NOTE | ~2025-06-19 | US_ITS ---
CLINICAL HISTORY: hx of complex right renal cyst -to further eval US of kidneys Comparison: None provided Findings: Right kidney is normal in size, echogenicity and morphology, 10.9 cm in length. No calculus or hydronephrosis. Simple cyst 1.6 cm in the upper pole, minimally complex avascular cyst with focal wall calcification 9 x 7 x 6 mm in the midpole. Left kidney is normal in size, echogenicity and morphology, 11.3 cm in length. No calculus, mass or hydronephrosis. Limited color Doppler demonstrates unremarkable bilateral blood flow. Impression: Right renal simple and minimally complex cysts, recommend comparison with previous exam. This document has been electronically signed by: Denice Norris MD on 06/20/2025 10:42:04
--- OUTSIDE RECORDS SUMMARY | 2025-06-19 16:37 | XMS_ITS | Patient Health Record ---
Author Organization [facility] Address [address] [place] [address] Care Team Providers Care Railroad Supervisor Of Engines Name Role Phone Shalonda Lugo Primary Care Provider Devonte Bateman Unavailable [phone] Allergies No Known Allergies Results Component Value Reference Range Notes Ur Preg Test Reviewed date:03/20/2025 07:14:06 PM Interpretation: Performing Lab:[facility], [address] [place] [id number] Notes/Report: Urine NEGATIVE NEGATIVE This test was developed to detect early . False negative results may occur after the 5th - 7th week of when using this test method. If clinically indicated, consider a serum hCG. Reason For Referral Referring Provider First Name Herbert Referring Provider Last Name Chidi ( DO NOT USE) Referred Organization [facility] Referred Provider Devonte Bains Referred Address [address],[place], [place],[address], Referred Provider Specialty Gastroentero logy General Notes Anupama Melendez 2024 11:39:18 AM > requested a [facility] from [facility] for visit with Dr. Bains on 01-06-25 [phone] Referral Priority Routine Medications Medication SIG (Take, Route, Frequency, Duration) Notes Start Date End Date Status Zolpidem Tartrate 5 MG TAKE 1 TABLET BY MOUTH EVERY DAY AT BEDTIME NEEDED FOR SLEEP Oral for 30 Days Active Famotidine 20 MG TAKE 1 TABLET BY ALINE TH TWICE A DAY for 90 Active traZODone HCl 100 MG TAKE 1 [...] one day for 1 days 02/10/2025 Active Imodium A-D 2 MG 1 or [...] Status Risk Notes Problem Colon cancer screening (011956058) Colon cancer screening (Z12.11) Active confirmed Problem 39784920 Weight loss (R63.4) Active confirmed Problem 727636707 Irritable bowel syndrome with diarrhea (K58.0) Active confirmed Problem Fatigue (88896877) Other fatigue (R53.83) Active confirmed Problem 575626770 Gastroesophageal reflux disease without esophagitis (K21.9) Active confirmed Problem Preprocedural examination (592305935785894 ) Preprocedural examination (Z01.818) Active confirmed Problem 65110953 Colitis (K52.9) Active confirmed Problem 922401433 Vitamin B12 deficiency (E53.8) Active confirmed Problem 37473510 Acute colitis (K52.9) Active confirmed Problem 354615262 Abnormal UGI ser ies (R93.3) Active confirmed Problem 91081616 Diarrhea, unspecified type (R19.7) Active confirmed Problem 008554185 Abdominal pain, diffuse (R10.84) Active confirmed Vital Signs Temperature 97.8 degrees Fahrenheit 01/09/2025 Blood pressure diastolic 01 mm Hg 01/09/2025 Height 62 in 01/09/2025 Blood pressure systolic 001 mm Hg 01/09/2025 Weight 144.2 lbs 01/09/2025 BMI 26.37 kg/m2 01/09/2025 Procedures Procedure Date Ordered Date Performed Result Body Sit e COLONOSCOPY 01/09/2025 N/A Encounters Encounter Location Date Provider Diagnosis [facility] [address] [place] [id number] 03/20/2025 Devonte Bains Colon cancer screeni ng Z12.11 and Internal hemorrhoids K64.8 [facility] [address] [place] [address] 01/09/2025 Devonte Bains Colon cancer screeni ng Z12.11 ; Irritable bowel syndrome with diarrhea K58.0 and Preprocedural examination Z01.818 [facility] [address] [place] [address] 01/09/2025 Devonte Bains Assessments Encounter Date Diagnosis (ICD Code) Assessment Notes Treatment Notes Treatment Clinical Notes Section Notes 03/20/2025 Colon cancer screening (ICD-10 - Z12.11) 03/20/2025 Internal hemorrhoids (ICD-10 - K64.8) 01/09/2025 Colon cancer screening (ICD-10 - Z12.11) [...] referral to the [facility] for your neck pain Overall, Ines [...] Date UPPER GI ENDOSCOPY 03/29/2018 COLONOSCOPY 03/29/2018 Insurance Providers Payer Name Payer Address Payer Phone Subscriber Number Group Number Insured Name Patient Relationship to Insured Coverage Start Date Coverage End Date [place] [address] [place] [phone] [id number] INES RUANO Self - patient is the insured Medical (General) History Medical History History ICD Code Denies [place],DM,CVA,Lung disease,renal dise ase Colitis--05/2017--colonoscopy to the ascending [...]
== END 2025-06-19 14:19 | disposition home or self-care (01) ==
LOC: HO.US 14:18
PROVIDERS: PCP Student in an Organized Health Care Education/Training Program; Visit Provider Student in an Organized Health Care Education/Training Program
DX: N28.1 Cyst of kidney, acquired (principal)
CPT/HCPCS: 76775

== ENCOUNTER → 2025-06-19 14:19 | Outpatient (BNV) | payer MEDICAID, SELFPAY | PROVIDERS: PCP Student in an Organized Health Care Education/Training Program; Visit Provider Radiology Diagnostic Radiology | DX: Z87.448 Personal history of other diseases of urinary system (principal) | CPT/HCPCS: 76775 ==

== ENCOUNTER 2025-06-28 09:53 | Outpatient (AMB) | payer MEDICAID, SELFPAY ==
--- NOTE | 2025-06-28 09:55 | A.OFFVIS_ITS ---
Vital Signs 06/28/25 09:58 Height 5 ft 2 in Weight 150 lb BMI 27.4 BP 140/75 H Blood Pressure Location Lt brachial Position Sitting Pulse 98 Pulse Source Pulse Oximeter Pulse Oximetry (%) 100 Oxygen Delivery Method Room Air Intake Visit Reasons: s/p right bicipital groove shoulder inj Intake Note: Pain today 5 Tape Edge Machine Operator Required: No Accompanied by: Self / Same As Patient Allergies No Known Allergies (No Known Allergies*) Allergy (Verified 06/28/25 09:58) HPI Comments Details: The patient is a 44-year-old female presenting with right shoulder pain. The pain has persisted despite a right bicipital groove shoulder injection performed on May 27 with ultrasound guidance, which provided approximately 50% pain relief. The pain is described as burning and stabbing, with limited range of motion in the shoulder and arm. The patient also reports numbness and tingling in the right arm, particularly in the thumb, and weakness in the arm, which exacerbates with overhead activities. She has a history of neck surgery at C5-C6, and previous imaging showed no significant herniation or spinal stenosis. Right shoulder MRI showed mild tenosynovitis of the long head of the biceps tendon. An EMG was performed in , which was normal, but symptoms persist. The patient experiences neck and upper back pain, which may contribute to her shoulder symptoms. She has been managing her pain with tramadol and pregabalin, prescribed by her PCP, but reports limited improvement in sleep or daily activities. Past Procedures: 05/27/25: Right bicipital groove shoulder injection-50% pain relief PRIOR: The patient is a 44-year-old female presenting with right shoulder pain and discuss shoulder MRI results. The pain persists across right shoulder with all ranges of motion and has remained unchanged since the previous visit. Physical therapy was completed without improvement, and the pain is notably worse in the morning, movements, lifting, pulling, grasping or squeezing activities or sleepi ng on right side. Pain is rated at 6/10. MRI findings showed mild tenosynovitis of the long head of the biceps tendon. The patient has not undergone any prior shoulder injections. Denies any recent c ough, cold, infection, fever or any other significant changes in medical history since last office visit. PRIOR: The patient is a 44-year-old female presenting with chronic neck pain radiating to right shoulder and right arm. She underwent anterior diskectomy and fusion C5-C6 for C6 radiculopathy in 11/[address] Pinedo, but post-surgical outcomes did not result in symptom relief. She reports ongoing and constant throbbing neck pain radiating to the right shoulder, arm and hip, impacting her daily life, mood, sleep and quality of life. The pain is described as throbbing, stabbing, and tingling with a intensity of 9/10 at worst in the afternoon and evening hours, slightly better at 7/10 in the mornings. She has tried numerous pain management strategies including diclofenac gel, lidocaine patch, tramadol, pregabalin, Tylenol, and two rounds of physical therapy; however, none have provided sufficient relief. The pain is aggravated by movements, especially lifting her arm overhead and sleeping on the right side, weather changes, and heat. Imaging including cervical spine xrays, cervical spine and brain MRIs and CT myelogram revealed no spinal cord or nerve involvement, and EMG testing was normal. She also saw Neurologist Dr. Humphries 08/2024, was told she has normal EMG and tried gabapentin and then was started on carbamazepine with no relief but gave her significant nausea thus no longer taking it. Accompanying her symptomatology is significant right shoulder pain, potentially preceding her neck surgery per patient, with a history of rotator cuff tendinitis. Additionally, she suffers from insomnia and depression, for which she sees a mental counselor. She is wearing right wrist brace for support. - Onset: Post-surgical, chronic since neck surgery - Quality: Throbbing, pulsing, stabbing, pinching, tingling, cramping, burning, tiring, dull, sore, radiating, tiring, exhausting - Location: Neck, right shoulder and arm, back, radiating to hip - Exacerbating Factors: Movements, overhead reaching, lifting, sleeping on right side, weather changes - Relieving Factors: None noted - Interference: Sleep affected, daily activities impacted, emotional distress - Affect: Pain exacerbates insomnia and depression; patient sees a counselor - Analgesia: Tramadol, lidocaine patch, pregabalin and gabapentin tried with no relief; pain levels reach 9/10, goal is better pain control - Adverse Effects: Nausea with carbamazepine - Activities of Daily Living: Severely impacted by pain, described as exhausting - Aberrant Drug Related Behaviors: None reported Oswestry Neck Pain Disability Score=32 [facility] Medical History Cervical disc herniation Right shoulder pain Tendinitis of right rotator cuff Personal history of COVID-19 (~2019) History of miscarriage (~2019) Hiatal hernia Low back pain GERD (gastroesophageal reflux disease) History of IBS Neck pain Insomnia Hot flashes Surgical History Hx of cervical spine surgery (11/17/23) History of esophagogastroduodenoscopy (EGD) Hx of colonoscopy Family History Mother Hypertension Maternal Aunt Diabetes Social History Are you a primary rn critical care to a significant other at home: Yes (2 children ages 14+18) Do you presently have visiting nurse or other home services: No Alcohol intake: never Comment: COUNTS CORRECT Patient Tobacco Use Status: Never used Tobacco Current occupational status: unemployed Review of Systems Const Details: - Musculoskeletal: Reports right shoulder pain, numbness, tingling, and weakness in the right arm - Neurological: Reports numbness and tingling in the right thumb - General: Denies improvement in sleep or daily activities All systems reviewed & are unremarkable except as noted in HPI and below Physical Exam Vital Signs: Last Vital Signs Pulse 98 06/28/25 09:58 BP 140/75 H 06/28/25 09:58 Pulse Ox 100 06/28/25 09:58 Oxygen Delivery Method Room Air 06/28/25 09:58 BMI result Body Mass Index 27.4 General: Appears afebrile. Alert and oriented. Mood and affect appropriate. Follows and participates in conversation appropriately. Respiratory effort is unlabored. No cough. Able to transition from sit to stand unassisted. Ambulates with bilaterally normal heel strike and toe off. Neck Neck: Yes normal visual inspection, Yes full ROM, Yes no lymphadenopathy, Yes supple, No anterior neck swelling, Yes no JVD, Yes prominent supraclavicular fat pad and No prominent dorsocervical fat pad Back/Spine/Pelvis Cervical Spine: cervical muscular tenderness, pain with cervical ROM, Cervical spine scars present, cervical spasm and No Cervical spine tenderness Extrem Right upper extremity: shoulder/upper arm (Limited ROM due to pain with I/E rotation, worse with overhead activities) Details: normal to inspection, tenderness Location: over the biceps tendon and over the subacromial bursa and crepitus; no swelling, no ecchymosis, no deformity and no unusual warmth Results Reviewed Results Reviewed: MR shoulder RT wo con 04/06/25 CLINICAL HISTORY: M25.511 - Pain in right shoulder MR right shoulder without gadolinium Comparison: None provided Findings: No acute fracture or pathologic bone lesion. No significant arthritic changes. Type II acromion without downsloping. No joint effusion. No rotator cuff tears. There is mild tenosynovitis of the long head of the biceps tendon. The rest of the visualized muscles and tendons are unremarkable. There is no evidence of a rotator cuff tear. Glenoid labrum is intact. IMPRESSION: There is mild tenosynovitis of the long head of the biceps tendon. XR SHOULDER, RIGHT 07/01/23 CLINICAL INFORMATION: Pain in right shoulder COMPARISON: None available. TECHNIQUE: AP external rotation, Grashey, scapular Y, and axillary views of the right shoulder. FINDINGS: The bones and soft tissues are normal. No fracture. Glenohumeral and acromioclavicular alignment is anatomic with normal joint space. No abnormal soft tissue calcifications. IMPRESSION: No bony abnormality. XR cervical spine 4V 01/19/24 CLINICAL INFORMATION: Arthrodesis status COMPARISON: Cervical spine radiographs 06/10/2023 TECHNIQUE: 4 views of the cervical spine were obtained. FINDINGS: The cervical spine is visualized to the level of C7-T1 on the lateral view. Vertebral body alignment is maintained. No instability on flexion extension views. Status post C5-C6 anterior cervical discectomy and spinal fusion. No evidence of hardware fracture or complication. No definite osseous fusion noted across the vertebral bodies. Vertebral body height is maintained. Disc space heights are otherwise maintained. No prevertebral soft tissue swelling. IMPRESSION: Status post C5-C6 anterior cervical discectomy and spinal fusion. No evidence of hardware fracture or complication. No instability on flexion extension views. CT CERVICAL SPINE WITHOUT CONTRAST 03/23/24 CLINICAL INFORMATION: Cervical radiculopathy COMPARISON: MRI cervical spine on 01/28/2024 FINDINGS: There is normal filling of the lower cranial cerebral spinal fluid space in the thecal sac with intrathecal contrast. The visualized cervical spinal cord is normal in position and caliber. No impingement or displacement is seen. The thecal sac is intact without effacement. C1/C2: Bony structures are intact with normal alignment. There is no spinal stenosis. C2/C3: Bony structures are intact with normal alignment. There is no spinal stenosis. Bilateral C2/C3 neuroforamina are patent. Bilateral apophyseal joints are intact with normal alignment. C3/C4: Bony structures are intact with normal alignment. There is no spinal stenosis. Bilateral C3/C4 neuroforamina are patent. Bilateral apophyseal joints are intact with normal alignment. C4/C5: Bony structures are intact with minimal kyphosis. There is no spinal stenosis. Bilateral C4/C5 neuroforamina are patent. Bilateral apophyseal joints are intact with normal alignment. C5/C6: Status post ACDF, fixation with integrated interbody fixation device. Bony structures are intact with normal alignment. There is no spinal stenosis. Bilateral C5/C6 neuroforamina are patent. Bilateral apophyseal joints are intact with normal alignment. C6/C7: Bony structures are intact with normal alignment. There is no spinal stenosis. Bilateral C6/C7 neuroforamina are patent. Bilateral apophyseal joints are intact with normal alignment. C7/T1: Bony structures are intact with normal alignment. There is no spinal stenosis. Bilateral C7/T1 neuroforamina are patent. Bilateral apophyseal joints are intact with normal alignment. IMPRESSION: 1. Status post ACDF, fixation with interbody fixation device at C5/C6. 2. No evidence of spinal stenosis or neural foraminal narrowing. FLUOROSCOPIC CERVICAL MYELOGRAM 03/23/24 INDICATION: Cervical radiculopathy. History of C5-C6 arthrodesis. Limited MRI findings due to ferromagnetic artifact. TECHNIQUE/FINDINGS: Risks and benefits and possible complications were discussed with the patient and the consent form was signed. Patient was placed prone on the fluoroscopy table. The back was prepped and draped in routine sterile fashion. Betadine was used as a skin antiseptic. Utilizing fluoroscopic guidance, the L3-4 interlaminar space was accessed with a 22 gauge Nereyda spinal needle and clear CSF fluid was obtained. 10 mL of Isovue-M 300 was then injected through the needle and contrast was observed entering the thecal sac. The fluoroscopic table was then tilted in the Trendelenburg position, and contrast was observed flowing upwards to the cervical spine. The needle was removed without immediate complications. The patient was then transferred to CT for post myelographic imaging. Total fluoroscopy time: 2.13 min DAP: 129 dGy M/2 Images: 1 cine with 6 spot images IMPRESSION: Successful fluoroscopic guided intrathecal instillation of Isovue-M 300. Patient will undergo subsequent CT cervical myelographic imaging. Assessment & Plan Assessment & Plan (1) Right shoulder pain: Code(s): M25.511 - Pain in right shoulder Category: Medical (2) Upper back pain: Code(s): M54.9 - Dorsalgia, unspecified Category: Medical (3) Cervical radiculitis: Code(s): M54.12 - Radiculopathy, cervical region Category: Medical (4) Paresthesia of right upper extremity: Code(s): R20.2 - Paresthesia of skin Category: Medical Plan The plan includes obtaining a thoracic x-ray to further investigate the source of pain, as current imaging does not fully explain the symptoms. An EMG study will be repeated to assess for neuropathic pain contributing to the patient's symptoms. Continue current medications, tramadol and pregabalin, and to discuss with her primary care physician about increasing the pregabalin dose to 75 mg at bedtime. Patient will follow up with control specialist is recommended for further evaluation of the shoulder. Consideration of spinal cord stimulation is discussed as a potential treatment option, which will necessitate psychological evaluation. All questions and concerns have been answered and patient agreed with the treatment plan. Follow up for xray/EMG results and sooner as needed. Patient was informed and verbally consented to the use of an ambient scribe for clinic note documentation during this visit. Orders: Orders NE nerve conduction velocity 06/28/25 M25.511 - Pain in right shoulder, M54.12 - Radiculopathy, cervical region, M54.9 - Dorsalgia, unspecified, R20.2 - Paresthesia of skin XR thoracic spine 3V 06/28/25 M25.511 - Pain in right shoulder, M54.9 - Dorsalgia, unspecified NE electromyogram (EMG) 06/28/25 M54.12 - Radiculopathy, cervical region, R20.2 - Paresthesia of skin Coding Level of Care Code Est Pt Level 4 (29306) Complex EM visit Add On G2211 Diagnoses Right shoulder pain M25.511 Upper back pain M54.9 Cervical radiculitis M54.12 Paresthesia of right upper extremity R20.2
[2025-06-28 09:58] VITALS: BP 140/75; PULSE 98; O2SAT 100; BMI 27.4
--- OUTSIDE RECORDS SUMMARY | 2025-06-28 11:09 | XMS_ITS | Encounter Summary ---
Author Organization [employer] Address [address] [place] [address] Care Team Providers Care Engineering Operator Name Role Phone Shalonda Lugo MD Primary Care Pro vider Encounter Details Date Type Department Care Team ([facility] st Contact Info) Description 06/20/2025 Results Follow-Up [facility] [address] [place] [address] Shalonda Lugo MD [address] [place] [address] US Renal Complete Social History Tobacco Use Types Packs/Day Years [...] Encounter Note - Shalonda Calderón MD - 06/20/2025 9:25 PM EDT Please call patient to advise to come to already scheduled apt with me to go over abnormal Image Thanks documented in this encounter Plan of Treatment Upcoming Encounters Date Type Department Care Team (Late st Contact Info) Description 07/04/2025 9:30 AM EDT Office Visit [facility] [address] [place] [address] Shalonda Lugo MD [address] [place] [address] 08/26/2025 1:00 PM EST Telemedicine [facility] [address] [place] [address] Bette Nolasco, RN [address] [place] [address] documented as of this encounter Visit Diagnoses Not on filedocumented in this encounter Additional Health Concerns Assessment Noted Time PHQ-9 Depression Total Score: 16 025 11:44 AM EDT documented as of this encounter Care Teams Engineering Operator Relationship Specialty Start Date End Date Shalonda Lugo MD [address] [place] [id number] PCP - General Internal Medicine 06/10/23 documented as of this encounter
--- OUTSIDE RECORDS SUMMARY | 2025-06-28 11:10 | XMS_ITS | Encounter Summary ---
Author Organization [employer] Address [address] [place] [address] [address] [place] [address] Care Team Providers Care Dispatcher Radio Name Role Phone Shalonda Lugo MD Primary Care Pro vider Reason for Visit * Reason Onset Date Comments Med Refill 09/04/2024 Encounter Details Date Type Department Care Team ([facility] st Contact Info) Description 09/04/2024 Refill [facility] [address] [place] [address] Shalonda Lugo MD [address] [place] [address] Other insomnia Social History Tobacco Use Types [...] your housing situation today? I have raoul sing 12/28/[address] you li [...] Description 07/04/2025 9:30 AM EDT Office Visit [facility] [address] [place] [address] Shalonda Lugo MD [address] [place] [address] 08/26/2025 1:00 PM EST Telemedicine [facility] [address] [place], [place] [phone] Bette Nolasco, RN [address] [place] [address] documented as of this encounter Visit Diagnoses Diagnosis Other insomnia documented in this encounter Additional Health Concerns Assessment Noted Time PHQ-9 Depression Total Score: 16 024 10:08 AM EDT documented as of this encounter Care Teams Dispatcher Radio Relationship Specialty Start Date End Date Shalonda Lugo MD [address] [place] [id number] PCP - General Internal Medicine 06/10/23 documented as of this encounter
--- OUTSIDE RECORDS SUMMARY | 2025-06-28 11:10 | XMS_ITS | Patient Health Record ---
Author Organization [facility] Address [address] [place] [address] Care Team Providers Care Director Of Speech Pathology Name Role Phone Shalonda Lugo Primary Care Provider Devonte Bateman Unavailable [phone] Allergies No Known Allergies Results Component Value Reference Range Notes Ur Preg Test Reviewed date:03/20/2025 07:14:06 PM Interpretation: Performing Lab:[facility], [address] [place] [phone] Notes/Report: Urine NEGATIVE NEGATIVE This test was developed to detect early . False negative results may occur after the 5th - 7th week of when using this test method. If clinically indicated, consider a serum hCG. Reason For Referral Referring Provider First Name Herbert Referring Provider Last Name Chidi ( DO NOT USE) Referred Organization [facility] Referred Provider Devonte Bains Referred Address [address] [facility],[place], [place],[address], Referred Provider Specialty Gastroentero logy General Notes Anupama Melendez 2024 11:39:18 AM > requested a [facility] referral from [facility] for visit with Dr. Bains on 01-06-25 [phone] Referral Priority Routine Medications Medication SIG (Take, [...] Status Risk Notes Problem Colon cancer screening (091755070) Colon cancer screening (Z12.11) Active confirmed Problem 54004533 Weight loss (R63.4) Active confirmed Problem 479631327 Irritable bowel syndrome with diarrhea (K58.0) Active confirmed Problem Fatigue (54449728) Other fatigue (R53.83) Active confirmed Problem 995626256 Gastroesophageal reflux disease without esophagitis (K21.9) Active confirmed Problem Preprocedural examination (108764601984164 ) Preprocedural examination (Z01.818) Active confirmed Problem 82304674 Colitis (K52.9) Active confirmed Problem 256514899 Vitamin B12 deficiency (E53.8) Active confirmed Problem 03284265 Acute colitis (K52.9) Active confirmed Problem 806678215 Abnormal UGI ser ies (R93.3) Active confirmed Problem 04617767 Diarrhea, unspecified type (R19.7) Active confirmed Problem 699878880 Abdominal pain, diffuse (R10.84) Active confirmed Vital Signs Temperature 97.8 degrees Fahrenheit 01/09/2025 Blood pressure diastolic 01 mm Hg 01/09/2025 Height 62 in 01/09/2025 Blood pressure systolic 001 mm Hg 01/09/2025 Weight 144.2 lbs 01/09/2025 BMI 26.37 kg/m2 01/09/2025 Procedures Procedure Date Ordered Date Performed Result Body Sit e COLONOSCOPY 01/09/2025 N/A Encounters Encounter Location Date Provider Diagnosis [facility] Outpatient [address] [place], [place] [id number] 03/20/2025 Devonte Bains Colon cancer screeni ng Z12.11 and Internal hemorrhoids K64.8 [facility] [address] [place] [address] 01/09/2025 Devonte Bains Colon cancer screeni ng Z12.11 ; Irritable bowel syndrome with diarrhea K58.0 and Preprocedural examination Z01.818 [facility] [address] [place] [address] 01/09/2025 Devonte Bains Assessments Encounter Date Diagnosis [...] [place] [address] [place] [address] [id number] INES RUNAO Self - patient is the insured Medical (General) History Medical History History ICD Code Denies CA,DM,CVA,Lung disease,renal dise ase Colitis--05/2017--colonoscopy to the ascending [...]
--- OUTSIDE RECORDS SUMMARY | 2025-06-28 11:10 | XMS_ITS | Encounter Summary ---
Author Organization [employer] Address [address] [facility] 7t [place] [address] Care Team Providers Care Photo Manager Name Role Phone Shalonda Lugo MD Primary Care Pro vider Reason for Visit * Reason Onset Date Comments Med Refill 01/07/2025 Encounter Details Date Type Department Care Team ([facility] Contact Info) Description 01/07/2025 Refill [facility] [address] [place], [place] [phone] Sarah Liu NP 230 [place] [address] Social History Tobacco Use Types Packs/Day Years [...] Description 07/04/2025 9:30 AM EDT Office Visit [facility] [address] [place] [address] Shalonda Lugo MD [address] [place] [address] 08/26/2025 1:00 PM EST Telemedicine [facility] [address] [place] [address] Bette Nolasco, RN 505 [place] [address] documented as of this encounter Visit Diagnoses Not on filedocumented in this encounter Additional Health Concerns Assessment Noted Time PHQ-9 Depression Total Score: 13 024 11:16 AM EST documented as of this encounter Care Teams Photo Manager Relationship Specialty Start Date End Date Shalonda Lugo MD [address] [place] [address] PCP - General Internal Medicine 06/10/23 documented as of this encounter
--- OUTSIDE RECORDS SUMMARY | 2025-06-28 11:10 | XMS_ITS | Encounter Summary ---
Author Organization [employer] Address [address] [place] [address] [address], [place] [address] Care Team Providers Care Test Engineering Technician Name Role Phone Shalonda Lugo MD Primary Care Pro vider Reason for Visit * Reason Comments Med Refill Encounter Details Date Type Department Care Team ([facility] Contact Info) Description 07/18/2023 Refill [facility] MED[facility]INE 230 [place], [place] [phone] Ivett Wagner FNP 505 [place] [address] Other insomnia Social History Tobacco Use Types [...] Upcoming Encounters Date Type Department Care Team ([facility] Contact Info) Description 07/04/2025 9:30 AM EDT Office Visit [facility] [address] [place], [place] [phone] Shalonda Lugo MD 230 [place] [address] 08/26/2025 1:00 PM EST Telemedicine [facility] 505 [place], [place] [phone] Bette Nolasco, SINA 505 [place] [address] documented as of this encounter Visit Diagnoses Diagnosis Other insomnia documented in this encounter Care Teams Test Engineering Technician Relationship Specialty Start Date End Date Shalonda Lugo MD [address] [place] [address] PCP - General Internal Medicine 06/10/23 documented as of this encounter
--- OUTSIDE RECORDS SUMMARY | 2025-06-28 11:10 | XMS_ITS | Encounter Summary ---
Author Organization [employer] Address [address] [place] [address] 7[address] [place] [address] Care Team Providers Care Back Tacker Name Role Phone Shalonda Lugo MD Primary Care Pro vider Reason for Visit * Reason Onset Date Comments Med Refill 06/26/2024 Encounter Details Date Type Department Care Team ([facility] st Contact Info) Description 06/26/2024 Refill [facility] [address] [place] [address] Shalonda Lugo MD 230 [place] [address] Social History Tobacco Use Types Packs/Day Years [...] Description 07/04/2025 9:30 AM EDT Office Visit [facility] [address] [place] [address] Shalonda Lugo MD [address] [place] [address] 08/26/2025 1:00 PM EST Telemedicine [facility] [address] [place], [place] [phone] Bette Nolasco, RN 505 [place] [address] documented as of this encounter Visit Diagnoses Not on filedocumented in this encounter Additional Health Concerns Assessment Noted Time PHQ-9 Depression Total Score: 16 024 10:08 AM EDT documented as of this encounter Care Teams Back Tacker Relationship Specialty Start Date End Date Shalonda Lugo MD 230 [place] [address] PCP - General Internal Medicine 06/10/23 documented as of this encounter
--- OUTSIDE RECORDS SUMMARY | 2025-06-28 11:10 | XMS_ITS | Encounter Summary ---
Author Organization [employer] [facility] Address [address] [facility] 7t [place] [address] Care Team Providers Care Senior Javascript Developer Name Role Phone Shalonda Lugo MD Primary Care Pro vider Reason for Visit * Reason Comments Med Refill Encounter Details Date Type Department Care Team ([facility] Contact Info) Description 12/18/2024 Refill [facility] 230 [place], [place] [phone] Sarah Liu NP 230 [place] [address] Social History Tobacco Use Types Packs/Day Years [...] Description 07/04/2025 9:30 AM EDT Office Visit [facility] 230 [place] [address] Shalonda Lugo MD [address] [place] [address] 08/26/2025 1:00 PM EST Telemedicine [facility] 505 [place], [place] [phone] Bette Nolasco, SINA [address] [place] [address] documented as of this encounter Visit Diagnoses Not on filedocumented in this encounter Additional Health Concerns Assessment Noted Time PHQ-9 Depression Total Score: 13 024 11:16 AM EST documented as of this encounter Care Teams Senior Javascript Developer Relationship Specialty Start Date End Date Shalonda Lugo MD [address] [place] [address] PCP - General Internal Medicine 06/10/23 documented as of this encounter
--- OUTSIDE RECORDS SUMMARY | 2025-06-28 11:10 | XMS_ITS | Encounter Summary ---
Author Organization [employer] Address [address] [place] [address] Care Team Providers Care Buhr Dresser Name Role Phone Shalonda Lugo MD Primary Care Pro vider Reason for Visit * Reason Comments Med Refill Encounter Details Date Type Department Care Team ([facility] Contact Info) Description 11/15/2023 Refill [facility] [address] [place], [place] [phone] Shalonda Lugo MD [address] [place] [phone] Other insomnia Social History Tobacco Use Types [...] Upcoming Encounters Date Type Department Care Team ([facility] Contact Info) Description 07/04/2025 9:30 AM EDT Office Visit [facility] MED[facility] 230 [place], [place] [phone] Shalonda Lugo MD [address] [place] [phone] 08/26/2025 1:00 PM EST Telemedicine [facility] 505 [place], [place] [phone] Bette Nolasco, SINA 505 [place] [address] documented as of this encounter Visit Diagnoses Diagnosis Other insomnia documented in this encounter Care Teams Buhr Dresser Relationship Specialty Start Date End Date Shalonda Lugo MD [address] [place] [address] PCP - General Internal Medicine 06/10/23 documented as of this encounter
--- OUTSIDE RECORDS SUMMARY | 2025-06-28 11:10 | XMS_ITS | Encounter Summary ---
Author Organization [employer] Address [address] 7t [place] [address] Care Team Providers Care Physical Therapy Resident Name Role Phone Shalonda Lugo MD Primary Care Pro vider Encounter Details Date Type Department Care Team ([facility] st Contact Info) Description 02/14/2025 Orders Only [facility] [address] [place], [place] [phone] Provider, MD Lamont Social History Tobacco Use [...] 07/04/2025 9:30 AM EDT Office Visit [facility] MEDICINE [address] [place] [address] Shalonda Lugo MD [address] [place] [address] 08/26/2025 1:00 PM EST Telemedicine [facility] 505 [place] [address] Bette Nolasco, RN 505 [place] [address] documented as of this encounter Procedures Procedure [...] documented as of this encounter Care Teams Physical Therapy Resident Relationship Specialty Start Date End Date Shalonda Lugo MD [address] [place] [address] PCP - General Internal Medicine 06/10/23 documented as of this encounter
--- OUTSIDE RECORDS SUMMARY | 2025-06-28 11:10 | XMS_ITS | Encounter Summary ---
Author Organization [employer] Address [address] [facility] 7t [place] [address] Care Team Providers Care Convex Grinder Operator Name Role Phone Shalonda Lugo MD Primary Care Pro vider Encounter Details Date Type Department Care Team ([facility] st Contact Info) Description 02/07/2025 Orders Only [facility] [address] [place] [address] Torri Hou PA [address]RD [place] [address] Social History Tobacco Use Types Packs/Day Years [...] Upcoming Encounters Date Type Department Care Team ([facility] st Contact Info) Description 07/04/2025 9:30 AM EDT Office Visit [facility] MEDICINE 230 [place] [address] Shalonda Lugo MD 230 [place] [address] 08/26/2025 1:00 PM EST Telemedicine [facility]S 505 [place], [place] [phone] Bette Nolasco, SINA 505 [place] [address] documented as of this encounter Procedures Procedure [...] documented as of this encounter Care Teams Convex Grinder Operator Relationship Specialty Start Date End Date Shalonda Lugo MD [address] [place] [address] PCP - General Internal Medicine 06/10/23 documented as of this encounter
--- OUTSIDE RECORDS SUMMARY | 2025-06-28 11:11 | XMS_ITS | Encounter Summary ---
Author Organization [employer] Address [address] [place] [address] 7t [place] [address] Care Team Providers Care Radio/Tv Technician Name Role Phone Shalonda Luog MD Primary Care Pro vider Reason for Visit * Reason Onset Date Comments Med Refill 08/03/2024 Encounter Details Date Type Department Care Team ([facility] Contact Info) Description 08/03/[address] [facility] MEDICINE [address] [place] [address] Shalonda Lugo MD 230 [place] [address] Social History Tobacco Use Types Packs/Day Years [...] Description 07/04/2025 9:30 AM EDT Office Visit [facility] MEDICINE [address] [place] [address] Shalonda Lugo MD [address] [place] [address] 08/26/2025 1:00 PM EST Telemedicine [facility] 505 [place], [place] [phone] Bette Nolasco, RN 505 [place] [address] documented as of this encounter Visit Diagnoses Not on filedocumented in this encounter Additional Health Concerns Assessment Noted Time PHQ-9 Depression Total Score: 16 024 10:08 AM EDT documented as of this encounter Care Teams Radio/Tv Technician Relationship Specialty Start Date End Date Shalonda Lugo MD 230 [place] [address] PCP - General Internal Medicine 06/10/23 documented as of this encounter
--- OUTSIDE RECORDS SUMMARY | 2025-06-28 11:11 | XMS_ITS | Clinical Summary ---
Author Organization [employer] Address [address] [facility] 7[address] [place] [address] Care Team Providers Care Manager Academic Name Role Phone Shalonda Lugo MD Primary [...] per day. 1 each 02/29/20 24 Active cholecalcifero l (Vitamin D-3) 25 MCG (1000 UT) tablet Take 1 tablet (25 mcg) by mouth Once per day. 90 tablet 1 08/03/20 24 025 Active dicyclomine (Bentyl) 20 MG tablet Take 20 mg by mouth before breakfast, before lunch, before evening meal, and at bedtime. Active loperamide (Imodium A-D) 2 MG tablet Take by mouth if needed in the morning, at noon, in the evening, and at bedtime for diarrhea. Active naloxone (Narcan) 4 mg/0.1 mL nasal spray Administer 1 spray (4 mg) into affected nostril(s) if needed for opioid reversal. May repeat every 2-3 minutes if needed, alternating nostrils, until medical assistance becomes available. 2 each 2 02/07/20 25 026 Active meloxicam (Mobic) 15 MG tablet TAKE 1 TABLET BY MOUTH DAILY NEEDED FOR PAIN TAKE IT WITH FOOD AND FULL GLASS OF WATER 03/19/20 25 Active methocarbamol (Robaxin) 500 MG tablet take 1 tablet by mouth 2 times a day as needed for muscle spasm 03/19/20 25 Active pregabalin (Lyrica) 50 MG capsule Take 1 capsule (50 mg) by mouth at bedtime. 90 capsule 04/03/20 25 026 Active fish oil-omega-3 fatty acids 1000 MG capsule Take 1 capsule (1 g) by mouth Once per day. 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 30 tablet 1 05/02/20 25 025 Active Drospirenone (Slynd) 4 MG tablet Take 1 tablet by mouth Once per day. 84 tablet 3 05/20/20 25 Active Acetaminophen Extra Strength 500 MG tablet TAKE 1 TABLET BY MOUTH EVERY 6 HOURS NEEDED FOR MILD PAIN 60 tablet 1 06/07/20 25 Active traMADol (Ultram) 50 MG tabletIndicati ons:Acute pain of right shoulder TAKE 1 TABLET BY MOUTH EVERY 8 HOURS NEEDED FOR MODERATE OR SEVERE PAIN MAY TAKE 2 TABLETS FOR SEVERE PAIN 112 tablet 06/07/20 25 Active hydrOXYzine pamoate (Vistaril) 50 MG capsuleIndicat ions:Other insomnia TAKE 1 CAPSULE BY MOUTH AT BEDTIME NEEDED FOR ANXIETY OR FOR SLEEP 30 capsule 1 06/07/20 25 Active zolpidem CR (Ambien CR) 6.25 MG ER tabletIndicati ons:Other insomnia TAKE 1 TABLET BY MOUTH AT BEDTIME NEEDED FOR SLEEP DO NOT BREAK, CRUSH, DISSOLVE OR CHEW 30 tablet 1 06/07/20 25 Active Acetaminophen Extra Strength 500 MG tablet TAKE 1 TABLET BY MOUTH EVERY 6 HOURS NEEDED FOR MILD PAIN 60 tablet 1 03/18/20 25 025 Discontinued zolpidem CR (Ambien CR) 6.25 MG ER tabletIndicati ons:Other insomnia TAKE 1 TABLET BY MOUTH AT BEDTIME NEEDED FOR SLEEP DO NOT BREAK, CRUSH, DISSOLVE OR CHEW 30 tablet 05/09/20 25 025 Discontinued traMADol (Ultram) 50 MG tabletIndicati ons:Acute pain of right shoulder TAKE 1 TABLET BY MOUTH EVERY 8 HOURS NEEDED FOR MODERATE OR SEVERE PAIN MAY TAKE 2 TABLETS FOR FOR SEVERE PAIN 112 tablet 05/09/20 25 025 Discontinued hydrOXYzine pamoate (Vistaril) 50 MG capsuleIndicat ions:Other insomnia TAKE 1 CAPSULE BY MOUTH AT BEDTIME NEEDED FOR ANXIETY (AND for SLEEP) 30 capsule 05/09/20 25 025 Discontinued Active Problems Problem Noted Date Diagnosed Date Leukopenia 04/03/2025 Long-term current use of opiate analgesic 2024 [...] to short course tramadol and gabapentin, 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 Date Type Department Care Team Description 06/20/2025 Results Follow-Up [facility] [place] [address] Shalonda Lugo MD US Renal Complete 06/10/2025 Orders Only [facility] [address] [place] [address] Shalonda Lugo MD 06/07/2025 10:00 AM EDT Clinical Support [facility] [place] [address] Bette Nolasco, SINA Long-term current use of opiate analgesic 06/07/2025 Travel 06/07/2025 Refill [facility] [place] [address] Shalonda Lugo MD Acute pain of right shoulder; Other insomnia 05/20/2025 10:15 AM EDT Office Visit [facility] [address] [place] [address] Analilia Rodriguez CNM Surveillance of previously prescribed contraceptive pill (Primary Dx) 05/20/2025 Travel 05/17/2025 Travel 05/17/2025 Telephone [facility] WALK-IN CENTER [address] [place] [address] Maye Goodwin MA 05/03/2025 Refill [facility] [address] [place] [address] Analilia Rodriguez CNM 05/01/2025 Refill [facility] [address] [facility] [place] [address] Nicole Dupree MD 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 04/08/2025 2:30 PM EDT Telemedicine [facility] [address] [facility] [address] Bette Nolasco, RN Long-term current use of opiate analgesic 04/08/2025 Refill [facility] [address] [place] [address] Bette Nolasco RN Acute pain of right shoulder 04/08/2025 Results Follow-Up [address] [address] Shalonda Lugo MD MR Shoulder w/o Contrast Right 04/08/2025 Travel 04/08/[address] [address] Nicole Dupree MD 04/08/[address] [address] Shalonda Lugo MD Acute pain of right shoulder 04/06/2025 Orders Only [facility] External Provider, [facility] 04/03/2025 9:00 AM EDT Office Visit [address] [address] Shalonda Lugo MD Neck pain (Primary Dx); Renal cyst; Sinus tachycardia; Low vitamin B12 level; Health care maintenance; 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..] Q2 Not on file 01/28/2025 Comments No Intention Date Recorded No desire to become (finding) 0 05/20/2025 Sex and Gender Information Value Date Recorded Sex Assigned at Female 08/16/2022 10:16 AM EDT Legal Sex Female 10:16 AM EDT Gender Identity Female 08/16/2022 10:16 AM EDT Sexual Orientation Choose not to disclose 2021 10:16 AM EDT Last Filed Vital Signs Vital Sign Reading Time Taken Comments Blood Pressure 118/70 05/20/2025 10:06 AM EDT Pulse 94 05/20/2025 10:06 AM EDT Temperature 36.4 C (97.5 F) 05/20/2025 10:06 AM EDT Respiratory Rate 20 05/20/2025 10:06 AM EDT Oxygen Saturation 98% 05/20/2025 10:06 AM EDT Inhaled Oxygen Concentration - - Weight 69 kg (152 lb 3.2 oz) 05/20/2025 10:06 AM EDT Height 157.5 cm (5' 2 ) 05/20/2025 10:06 AM EDT Body Mass Index 27.84 05/20/2025 10:06 AM EDT Plan of Treatment Upcoming Encounters Date Type Department Care Team (Late st Contact Info) Description 07/04/2025 9:30 AM EDT Office Visit [facility] [address] [place] [address] Shalonda Lugo MD [address] [place] [address] 08/26/2025 1:00 PM EST Telemedicine [facility] [address] [place] [address] Bette Nolsaco, RN [address] [place] [address] Health Maintenance Due Date Last Done Comments CT Colonography 1978 FIT DNA/Cologuard 1978 FIT 1978 FOBT 1980 Sigmoidoscopy 1978 COVID-19 Vaccine ( season) 2025 08/18/2021 Influenza Vaccine (#1) 2025 0, 08/12/2018, 08/08/2018, Additional history exists Depression Monitoring 08/08/2025 02/06/2025, 025 SDOH Screening 01/28/2026 01/28/2025 Alcohol/Substance Use Screening 04/03/2026 04/03/2025 Disability Screening 04/03/2026 04/03/2025 Family Planning (PISQ) 05/20/2026 05/20/2025 Tobacco Screening 05/20/2026 05/20/2025 Mammogram 06/10/2027 06/10/2025, 07/0 06/2024, 03/01/2023, Additional history exists Cervical Cancer Screening 05/18/2028 HPV/Cotest 05/18/2028 05/18/2023, 05/01/2020 Pap Smear 05/18/2028 05/18/2023, 05/01/2020 Zoster Vaccines (1 of 2) 2028 DTaP/Tdap/Td Vaccines (3 - Td or Tdap) 02/28/2034 02/29/2024, 03/30/2011, 05/09/2001 Colonoscopy 03/20/2035 03/20/2025, 03/17/2018 Colorectal Cancer Screening 03/20/2035 RSV Patients and Patients Aged 60 years or older (1 - 1-dose 75+ series) 2053 Hepatitis B Vaccines Completed 03/30/2012, 04/27/2011, 03/30/2011 HIV Screening Completed 03/29/2025, 02/14, 09/22/2020 Hepatitis C Screening Completed 03/29/2025 , 02/24/2024, 09/22/2020 HIB Vaccines Aged Out No longer eligi [...] Years) and At-Risk Patients (6 to 49) Years Aged Out No longer eligible based on patient's age to complete this topic RSV under 20 months Aged Out No longe r eligible based on patient's age to complete this topic Rotavirus Vaccines Aged Out No longer eligible based on patient's age to complete this topic Procedures Procedure Name Priority Date/Time Associated Diagnosis Comments US RENAL COMPLETE Routine 06/20/2025 10: 42 AM EDT BI MAMMOGRAM SCREENING TOMOSYNTHESIS BILATERAL Routine 06/10/2025 8:50 AM EDT POCT TIM-14 URINE DRUG SCREEN Routine 06/07/2025 10:25 AM EDT Long-term current use of opiate analgesic MR SHOULDER WO CONTRAST RIGHT Routine 04/06/2025 9:42 AM EDT PARIETAL CELL ANTIBODY, LINDSAY Routine 03/29/2025 8:29 AM EDT SLIDE REVIEW Routine 03/29/2025 8:29 AM EDT CBC WITH AUTO DIFFERENTIAL Routine 03/29/2025 8:29 AM EDT VITAMIN B12/FOLATE, SERUM PANEL Routine 03/29/2025 8:29 AM EDT Annual physical exam VITAMIN D,25-OH,TOTAL,IA Routine 03/29/2025 8:29 AM EDT Annual physical exam TSH W/REFLEX TO FT4 Routine 03/29/2025 8 :29 AM EDT Annual physical exam SYPHILIS SCREEN Routine 03/29/2025 8:29 AM EDT Annual physical exam LIPID PANEL, STANDARD Routine 03/29/2025 8:29 AM EDT Annual physical exam HIV 1/2 ANTIGEN/ANTIBODY, FOURTH GENERATION W/RFL Routine 03/29/2025 8:29 AM EDT Annual physical exam HEPATITIS C AB W/REFL TO HCV RNA, QN, PCR Routine 03/29/2025 8:29 AM EDT Annual physical exam HEPATITIS B SURFACE ANTIGEN, EIA Routine 03/29/2025 8:29 AM EDT Annual physical exam HEMOGLOBIN A1C Routine 03/29/2025 8:29 AM EDT Annual physical exam COMPREHENSIVE METABOLIC PANEL Routine 03/29/2025 8:29 AM EDT Annual physical exam CHLAMYDIA/N. GONORRHOEAE RNA, TMA, UROGENITAL Routine 03/29/2025 8:15 AM EDT Annual physical exam HPV MRNA E6/E7 REFLEX TO HPV 16, 18/45 Routine 05/18/2023 9:25 AM EDT PAP SMEAR Routine 05/18/2023 9:25 AM EDT HM COLONOSCOPY Routine 03/17/2018 5:23 PM EDT from Last 3 Months or Most Recently Relevant to Health Maintenance Results * US Renal Complete (06/20/2025 10:42 AM EDT) Anatomical Region Laterality Modality Kidney Ultrasound 06/20/2025 10:4 2 AM EDT Narrative 06/20/2025 10:43 AM EDT [place] [address] Ultrasound Report Signed Patient: Ines Espinosa MR#: [id number] : 1980 Acct:[id number] Age/Sex: 44 / F ADM Date: 06/19/25 Loc: HO.US Attending Dr: Shalonda Calderón MD Ordering Physician: Shalonda Lugo MD Date of Service: 06/19/25 Procedure(s): US renal BI Accession Number(s): [id number] cc: Shalonda Lugo MD Reason for Exam: hx of complex right renal cyst -to further eval CLINICAL HISTORY: hx of complex right renal cyst -to further eval US of kidneys Comparison: None provided Findings: Right kidney is normal in size, echogenicity and morphology, 10.9 cm in length. No calculus or hydronephrosis. Simple cyst 1.6 cm in the upper pole, minimally complex avascular cyst with focal wall calcification 9 x 7 x 6 mm in the midpole. Left kidney is normal in size, echogenicity and morphology, 11.3 cm in length. No calculus, mass or hydronephrosis. Limited color Doppler demonstrates unremarkable bilateral blood flow. Impression: Right renal simple and minimally complex cysts, recommend comparison with previous exam. This document has been electronically signed by: Denice Norris MD on 06/20/2025 10:42:04 Dictated By: Denice Norris MD Signed By: <Electronically signed by Denice Norris MD in OV> 06/20/25 1042 DD/ 1042 TD/TT: 06/20/25 1042 Fire Protection Engineering Technician: Procedure Note Donotuseinterpreter, Image - 06/20/2025 [place] [address] Ultrasound Report Signed Patient: Phillip Espinosa#: [id number] : 1980Acct:[id number] Age/Sex: 44 / FADM Date: 06/19/25 Loc: .US Attending Dr: Shalonda Calderón MD Ordering Physician: Shalonda Lugo MD Date of Service: 06/19/25 Procedure(s): US renal BI Accession Number(s): [id number] cc: Shalonda Lugo MD Reason for Exam: hx of complex right renal cyst -to further eval CLINICAL HISTORY: hx of complex right renal cyst -to further eval US of kidneys Comparison: None provided Findings: Right kidney is normal in size, echogenicity and morphology, 10.9 cm in length. No calculus or hydronephrosis. Simple cyst 1.6 cm in the upper pole, minimally complex avascular cyst with focal wall calcification 9 x 7 x 6 mm in the midpole. Left kidney is normal in size, echogenicity and morphology, 11.3 cm in length. No calculus, mass or hydronephrosis. Limited color Doppler demonstrates unremarkable bilateral blood flow. Impression: Right renal simple and minimally complex cysts, recommend comparison with previous exam. This document has been electronically signed by: Denice Norris MD on 06/20/2025 10:42:04 Dictated By: Denice Norris MD Signed By: <Electronically signed by Denice Norris MD in OV> 06/20/25 1042 DD/ 1042 TD/TT: 06/20/25 1042 Fire Protection Engineering Technician: us Shalonda Calderón MD IMG US PROCEDURES Final Result * BI Mammogram Screening Tomosynthesis Bilateral (06/10/2025 8:50 AM EDT) Anatomical Region Laterality Modality Breast Bilateral Mammography 06/10/2025 8:50 AM EDT Narrative 06/12/2025 12:20 PM EDT [facility] [place] [address] Mammography Report Signed Patient: Ines Espinosa MR#: [id number] : 1980 Acct:[id number] Age/Sex: 44 / F ADM Date: 06/10/25 Loc: HO.MAMMO Attending Dr: Shalonda Calderón MD Ordering Physician: Shalonda Lugo MD Re sults: 1Negative Date of Service: 06/10/25 Follow Up: 1 Year From [facility] Mammogram Procedure(s): MM tomosynthesis screening BI Accession Number(s): [id number] cc: Shalonda Lugo MD EXAMINATION: MM SCREENING DIGITAL BREAST TOMOSYNTHESIS, BILATERAL CLINICAL INFORMATION: Screening. Asymptomatic. COMPARISON: Mammography: Comparison is made with available priors TECHNIQUE: Digital breast mammography with tomosynthesis is performed in both the craniocaudal and mediolateral oblique views along with computer-aided detection (CAD). FINDINGS: The breasts are heterogeneously dense, which [...] target due date for their next mammogram. Electronically signed by: Marcelina Cristobal DO 06/12/2025 12:17 PM EDT Dictated By: Marcelina Cristobal DO Signed By: <Electronically signed by Marcelina Cristobal DO in OV> 06/12/25 1217 DD/ 0850 TD/TT: 06/10/25 0911 Fire Protection Engineering Technician: Procedure Note Donotuseinterpreter, Image - 06/12/20[facility] [address] [place] [address] Mammography Report Signed Patient: Ines EspinosaMR#: [id number] : 1980Acct:[id number] Age/Sex: 44 / FADM Date: 06/10/25 Loc: HO.MAMMO Attending Dr: Shalonda Calderón MD Ordering Physician: Shalonda Lugo sults: 1Negative Date of Service: 06/10/25Follow Up: 1 Year From [facility] Mammogram Procedure(s): MM tomosynthesis screening BI Accession Number(s): [id number] cc: Shalonda Lugo MD EXAMINATION: MM SCREENING DIGITAL BREAST TOMOSYNTHESIS, BILATERAL CLINICAL INFORMATION: Screening. Asymptomatic. COMPARISON: Mammography: Comparison is made with available priors TECHNIQUE: Digital breast mammography with tomosynthesis is performed in both the craniocaudal and mediolateral oblique views along with computer-aided detection (CAD). FINDINGS: The breasts are heterogeneously dense, which [...] target due date for their next mammogram. Electronically signed by: Marcelina Cristobal DO 06/12/2025 12:17 PM EDT Dictated By: Marcelina Cristobal DO Signed By: <Electronically signed by Marcelina Cristobal DO in OV> 06/12/25 1217 DD/ 0850 TD/TT: 06/10/25 0911 Fire Protection Engineering Technician: Shalonda Calderón MD IMG BI PROCEDURES Final Result * POCT TIM-14 Urine Drug Screen (06/07/2025 10:25 AM EDT) THC Negative Negative Cocaine Screen, Urine Negative Negative Opiate Screen, Urine Negative Negative Methamphetamine Screen Urine Negative Negative Amphetamine Screen, Urine Negative Negative Benzodiazepines Screen, Urine Negative Negative Barbiturate Screen, Urine Negative Negative Methadone Screen, Urine Negative Negative Buprenophine Screen, Urine Negative Negative TCA, Urine Negative Negative MDMA Urine Negative Negative ng/mL Oxycodone Screen, Urine Negative Negative Phencyclidine (PCP), Urine Negative Negative Propoxyphene, Urine Negative Negative Fentanyl, Urine Negative Negative Urine Urine specimen obtained by clean catch procedure / Unknown 06/07/2025 10:25 AM EDT Narrative Bette Nolasco RN - 06/07/2025 10:25 AM EDT .UTOX cup Lot#[id number] Exp. 07/23/26 Internal Pass Control Shalonda Calderón MD POINT OF CARE HARRISON T ENTER/EDIT ORDERABLES Final Result * MR Shoulder w/o Contrast Right (04/06/2025 9:42 AM EDT) Anatomical Region Laterality Modality Upper Extremities, Shoulder Right Magn etic Resonance 04/06/2025 9:42 AM EDT Narrative 04/06/2025 9:44 AM EDT [address] [address] Magnetic Resonance Report Signed Patient: Ines Espinosa MR#: [id number] : 1980 Acct:[id number] Age/Sex: 44 / F ADM Date: 04/06/25 Loc: HO.MRI Attending Dr: Stephanie COTE Ordering Physician: Stephanie Rosenberg Date of Service: 04/06/25 Procedure(s): MR shoulder RT wo con Accession Number(s): [id number] cc: Stephanie Rosenberg; Shalonda Lugo MD CLINICAL HISTORY: M25.511 - Pain in right shoulder MR right shoulder without gadolinium Comparison: None provided Findings: No acute fracture or pathologic bone lesion. No significant arthritic changes. Type II acromion without downsloping. No joint effusion. No rotator cuff tears. There is mild tenosynovitis of the long head of the biceps tendon. The rest of the visualized muscles and tendons are unremarkable. There is no evidence of a rotator cuff tear. Glenoid labrum is intact. IMPRESSION: There is mild tenosynovitis of the long head of the biceps tendon. This document has been electronically signed by: Alberto Davila MD on 04/06/2025 09:42:58 Dictated By: Alberto Davila MD Signed By: <Electronically signed by Alberto Davila MD in OV> 04/06/25 0944 DD/ 1 TD/TT: 04/06/25 09 Fire Protection Engineering Technician: Procedure Note Donotuseinterpreter, Image - 04/06/[address] [address] Magnetic Resonance Report Signed Patient: Ines EspinosaMR#: [id number] : 1980Acct:[id number] Age/Sex: 44 / FADM Date: 04/06/25 Loc: HO.MRI Attending Dr: Stephanie COTE Ordering Physician: Stephanie Rosenberg Date of Service: 04/06/25 Procedure(s): MR shoulder RT wo con Accession Number(s): [id number] cc: Stephanie Rosenberg; Shalonda Lugo MD CLINICAL HISTORY: M25.511 - Pain in right shoulder MR right shoulder without gadolinium Comparison: None provided Findings: No acute fracture or pathologic bone lesion. No significant arthritic changes. Type II acromion without downsloping. No joint effusion. No rotator cuff tears. There is mild tenosynovitis of the long head of the biceps tendon. The rest of the visualized muscles and tendons are unremarkable. There is no evidence of a rotator cuff tear. Glenoid labrum is intact. IMPRESSION: There is mild tenosynovitis of the long head of the biceps tendon. This document has been electronically signed by: Alberto Davila MD on 04/06/2025 09:42:58 Dictated By: Alberto Davila MD Signed By: <Electronically signed by Alberto Davila MD in OV> 04/06/2544 DD/ 1 TD/TT: 04/06/25941 Fire Protection Engineering Technician: [facility] External Provider IMG MRI PROCEDURES Edited Result - Final * Syphilis Screen (03/29/2025 8:29 AM EDT) Syphilis Screen Nonreactive Nonreactive [facility] Blood 03/29/2025 8:29 AM EDT 03/29/2025 8:29 AM EDT Shalonda Calderón MD LAB BLOOD ORDERAB LES Final Result Performing Organization Address [facility] Co de Phone Number [facility] [address] [place] [phone] * Slide Review (03/29/2025 8:29 AM EDT) Slide Review VERIFIED [facility] 03/29/2025 8:29 AM EDT 03/29/2025 8:29 AM EDT Shalonda Calderón MD LAB BLOOD ORDERAB LES Final Result Performing Organization Address [facility] Co de Phone Number [facility] [address] [place] [address] [phone] * Vitamin D, 25-Hydroxy, Total, Immunoassay (03/29/2025 8:29 AM EDT) Vitamin D 25-OH Total 31.8 >30 ng/mL [facility] Comment: Health Based Reference Values*< 20 ng/mL [id number] ng/mL Insufficient> 30 ng/mL Sufficient*Renee LEE. N Engl J Med. 2007;357:266-280There is no well-established upper level of normal vitamin Dlevels. Some laboratories use 50 ng/mL as an upper limit ofnormal. However, toxicity is patient-dependent and may occurat any level. Careful correlation with the patient'spresentation is necessary and, if there is concern forvitamin D toxicity, treatment should be consideredirrespective of the serum level.Care must be taken in interpreting Vitamin D results fromdifferent laboratories and methodologies. Published datademonstrated that results from patients undergoinghemodialysis may show a negative bias when tested withvarious automated 25-OH vitamin D assays when compared toLC-MS/MS.When testing samples from patients whose predominant form ofVitamin D is Vitamin D2, such as patients receiving VitaminD2 supplementation, results that are subtherapeutic shouldbe confirmed with another method such as LC-MS/MS. Blood Venous blood specimen / Unknown 03/29/2025 8:29 AM EDT 03/29/2025 8:29 AM EDT us Shalonda Calderón MD LAB BLOOD ORDERAB LES Final Result [facility] [address] [place] [phone] [phone] * Vitamin B12 (Cobalamin) and Folate Panel, Serum (03/29/2025 8:29 AM EDT) Vitamin B12 202 200 - 900 pg/mL [facility] Comment:NORMAL 200-900 PG/ML INDETERMINATE 160-199 PG/ML DEFICIENT < 160 PG/ML Folate 11.1 > or = 4.0 ng/mL [facility] Comment:Reference Values:> o r = 4.0 ng/mL< 4.0 ng/mL suggests folate deficiency Methotrexate, aminopterin and folinic acid(leucovorin) are chemotherapeutic agents whose molecularstructures are similar to folate; therefore, the Architectfolate assay cannot be used for patients using these drugs. Blood 03/29/2025 8:29 AM EDT 03/29/2025 8:29 AM EDT us Shalonda Calderón MD LAB BLOOD ORDERAB LES Final Result Performing Organization Address [facility]/ZIP Co de Phone Number [facility] [address] [place] [phone] * TSH with Reflex to Free T4 (03/29/2025 8:29 AM EDT) Pathologist [facility] TSH reflex Free T4 0.69 0.32 - 4.0 uIU/mL [facility] Blood 03/29/2025 8:29 AM EDT 03/29/2025 8:29 AM EDT us Shalonda Calderón MD LAB BLOOD ORDERAB LES Final Result Performing Organization Address City/[facility]/ZIP Co de Phone Number [facility] [address] [place] [phone] * (ABNORMAL) CBC auto differential (03/29/2025 8:29 AM EDT) White Blood Count 3.6(L) 4.8 - 10.8 X10*3/uL [facility] Red Blood Count 4.13(L) 4.20 - 5.50 X10*6/uL [facility] Hemoglobin 12.8 12.0 - 16.0 g/dl [facility] Hematocrit 36.1(L) 37.0 - 47.0 % [facility] Mean Corpuscular Volume 87.4 80.0 - 98.0 fL [facility] Mean Corpuscular Hemoglobin 31.0 27.0 - 33.0 pg [facility] Mean Corpuscular HGB Conc 35.5(H) 31.0 - 35.0 g/dl [facility] Red Cell Distribution Width 12.8 11.0 - 16.0 % [facility] Platelet Count 208 160 - 400 X10*3/uL [facility] Mean Platelet Volume 10.0 9.4 - 12.3 fL [facility] Neutrophils Percent Auto 53.2 45 - 73 % [facility] Imm Gran Pct Auto 0.3 0.0 - 0.4 % [facility] Lymphocytes Percent Auto 37.1 20 - 40 % [facility] Monocytes Percent Auto 7.2 2 - 11 % [facility] Eosinophils Percent Auto 1.4 0 - 4 % [facility] Basophils Percent Auto 0.8 0 - 2 % [facility] NRBC Pct Auto 0.0 0.0 - 0.2 /100WBC [facility] Neutrophils Absolute Auto 1.9(L) 2.0 - 8.3 x10*3/uL [facility] Imm Gran Abs Auto 0.01 0.00 - 0.03 X10*3/uL [facility] Lymphocytes Absolute Auto 1.3 1.2 - 4.9 X10*3/uL [facility] Monocytes Absolute Auto 0.3 0.1 - 1.2 X10*3/uL [facility] Eosinophils Absolute Auto 0.1 0.0 - 0.4 X10*3/uL [facility] Basophils Absolute Auto 0.0 0.0 - 0.2 X10*3/uL [facility] NRBC Abs Auto 0.000 0.0 - 0.012 X10*3/uL [facility] 03/29/2025 8:29 AM EDT 03/29/2025 8:29 AM EDT us Shalonda Calderón MD LAB BLOOD ORDERAB LES Edited Result - Final [facility] [address] [place] [phone] * Hepatitis C Antibody with Reflex to HCV, RNA, Quantitative, Real-Time PCR (03/29/2025 8:29 AM EDT) Pathologist [facility] Hepatitis C Antibody Nonreactive Nonreactive [facility] Comment:Antibodies to HCV no t detected; does not exclude early acuteHCV infection. Blood Venous blood specimen / Unknown 03/29/2025 8:29 AM EDT 03/29/2025 8:29 AM EDT Shalonda Calderón MD LAB BLOOD ORDERAB LES Final Result [facility] [address] [place] [phone] * Hepatitis B surface antigen, EIA (03/29/2025 8:29 AM EDT) Pathologist [facility] Hepatitis B Surface Ag Negative Negative [facility] Blood Venous blood specimen / Unknown 03/29/2025 8:29 AM EDT 03/29/2025 8:29 AM EDT Shalonda Calderón MD LAB BLOOD ORDERAB LES Final Result Performing Organization Address City/[facility]/ZIP Co de Phone Number [facility] [address] [place] [phone] * Parietal Cell Antibody, LINDSAY (03/29/2025 8:29 AM EDT) Pathologist [facility] Parietal Cell Antibody <=20.0 <=20.0 Unit [facility] Comment:Reference Range:<= 2 0.0 Lcfaikaw82.1 - 24.9 Equivocal>= 25.0 PositiveAnti-gastric parietal cell antibodies (Anti-GPA) werepreviously tested for by indirect immunofluorescence(IF) using mouse stomach as a substrate.Identification of the specific antibody target as H+/K+ATPase protein (a gastric proton pump) has led to thedevelopment of an LINDSAY based assay. Antibodies tothis protein are present in approximately 80% ofpatients with pernicious anemia and a small percentageof general adult population. The latter percentageincreases with age and may reflect the presence ofatrophic gastritis. A negative test does not excludea diagnosis of pernicious anemia. A test for intrinsicfactor blocking antibody (IFab) may provide serologicalevidence in support of the diagnosis in some of thesepatients.THIS TEST WAS PERFORMED AT:[employer] [id number] [place] [phone] DE LA GARZA MD,PHD 03/29/2025 8:29 AM EDT 03/29/2025 8:29 AM EDT us Shalonda Calderón MD LAB BLOOD ORDERAB LES Final Result [facility] [address] [place] [phone] * HIV-1/2 Antigen and Antibodies, Fourth Generation, with Reflexes (03/29/2025 8:29 AM EDT) HIV AB/AG Nonreactive Nonreactive [facility] Comment:HIV-1 p24 Ag and/or HIV-1/HIV-2 Ab not detected.A test result that is nonreactive does not exclude thepossibility of exposure to or infection with HIV-1 and/orHIV-2. Nonreactive results in this assay for individualswith prior exposure to HIV-1 and/or HIV-2 may be due toantigen and antibody levels that are below the limit ofdetection of this assay.The Meta[employer] HIV Ag/Ab Combo assay result andsupplemental assay results should be interpreted inconjunction with the patient's clinical presentation,history and other laboratory results. If the results areinconsistent with clinical evidence, additional testing issuggested to confirm the result. Blood Venous blood specimen / Unknown 03/29/2025 8:29 AM EDT 03/29/2025 8:29 AM EDT us Shalonda Calderón MD LAB BLOOD ORDERAB LES Final Result Performing Organization Address City/[facility]/ZIP Co de Phone Number [facility] [address] [place] [phone] * Hemoglobin A1c (03/29/2025 8:29 AM EDT) Hemoglobin A1c 5.3 <6.0 % [facility] Comment:Hemoglobin A1C Refer ence Range Adults: 4.8 - 6.0 % Non diabetic: < 6.0 % Goal: < 7.0 %Additional Action Suggested: > 8.0 %Note: Hemoglobin A1c results are invalid for patients with abnormal amounts of HbF. Blood transfusions may impact the HbA1c concentration in the patient sample. Estimated Average Glucose 105 mg/dL [facility] Comment:eAG = Estimated ave rage glucose which is %A1C expressed asaverage glucose, using the formula of the K3O-QrvoarpGzekfut Glucose study (ADAG), Diabetes Care, Vol.31,#8,May. 2007 Blood Venous blood specimen / Unknown 03/29/2025 8:29 AM EDT 03/29/2025 8:29 AM EDT Shalonda Calderón MD LAB BLOOD ORDERAB LES Final Result Performing Organization Address City/[facility]/ZIP Co de Phone Number [facility] [address] [place] [phone] * (ABNORMAL) Lipid Panel, Standard (03/29/2025 8:29 AM EDT) Triglycerides 89 <150 mg/dL [facility] Comment:Desirable Triglyceri de: less than 150 mg/dLBorderline High Triglyceride 150-199 mg/dLHigh Triglyceride: 200-499 mg/dLVery High Triglyceride: greater than or equal to 5OO mg/dL Cholesterol 225(H) <200 mg/dL [facility] Comment:Desirable Cholestero l: less than 200 mg/dLBorderline High Cholesterol: 200-239 mg/dLHigh Cholesterol: greater than 239 mg/dL LDL Cholesterol Calculated 118(H) <100 mg/dL [facility] Comment:Desirable LDL: less than 100 mg/dLNear Optimal/Above Optimal LDL: 110- 129 mg/dLBorderline High LDL: 130-159 mg/dLHigh LDL: 160-189 mg/dLVery High LDL: greater than or equal to 190 mg/dL HDL Cholesterol 90 >40 mg/dL [facility] Comment:Desirable HDL: great er than 40 mg/dL Note: This HDL assay may give artificially low results in patients with liver disease. Blood Venous blood specimen / Unknown 03/29/2025 8:29 AM EDT 03/29/2025 8:29 AM EDT us Shalonda Calderón MD LAB BLOOD ORDERAB LES Final Result [facility] [address] [place] [phone] * (ABNORMAL) Comprehensive Metabolic Panel (03/29/2025 8:29 AM EDT) Sodium 138 135 - 145 mmol/L [facility] Potassium 4.2 3.3 - 5.1 mmol/L [facility] Chloride 105 96 - 108 mmol/L [facility] Carbon Dioxide 27 22 - 29 mmol/L [facility] Anion Gap 10(L) 12 - 20 [facility] Urea Nitrogen (BUN) 10 9 - 16 mg/dL [facility] Creatinine, Serum 0.69 0.5 - 1.4 mg/dL [facility] Estimated Glomerular Filt Rate >60 [facility] Comment:Chronic Kidney Disea se: Estimated GFR < 60 mL/min/1.83s1Qixniv Kidney Disease: Estimated GFR < 15 mL/min/1.73m2 Glucose 97 60 - 115 mg/dL [facility] Calcium 9.1 8.4 - 10.2 mg/dL [facility] Bilirubin, Total 0.5 0.0 - 1.0 mg/dL [facility] Aspartate Amino Transferase 21 5 - 31 U/L [facility] Alanine Aminotransferase 11 0 - 31 U/L [facility] Total Protein 7.1 6.5 - 8.0 g/dL [facility] Albumin Level 4.5 3.5 - 5.0 g/dL [facility] Alkaline Phosphatase 70 39 - 117 U/L [facility] Blood Venous blood specimen / Unknown 03/29/2025 8:29 AM EDT 03/29/2025 8:29 AM EDT Shalonda Calderón MD LAB BLOOD ORDERAB LES Final Result [facility] [address] [place] [phone] * Chlamydia/N. Gonorrhoeae RNA, TMA, Urogenitial (03/29/2025 8:15 AM EDT) CT PCR NOT DETECTED Not Detect. [facility] Comment:A not detected test result does not exclude the possibilityof infection because test results can be affected byimproper specimen collection, concurrent antibiotic therapy,or the number of organisms in the specimen which may bebelow the sensitivity of the test. As with many diagnostictests, results from the Xpert CT/NG assay should beinterpreted in conjunction with other laboratory andclinical data available to the clinician.Xpert CT/NG performance has not been evaluated in patientsless than 14 years of age. The assay should not be used forthe evaluationof suspected sexual abuse or for other medico-legalindications. Additional testing is recommended in anycircumstance when false positive or false negative resultscould lead to adverse medical, social or psychologicalconsequences. NG PCR NOT DETECTED Not Detect. [facility] Comment:A not detected test result does not exclude the possibilityof infection because test results can be affected byimproper specimen collection, concurrent antibiotic therapy,or the number of organisms in the specimen which may bebelow the sensitivity of the test. As with many diagnostictests, results from the Xpert CT/NG assay should beinterpreted in conjunction with other laboratory andclinical data available to the clinician.Xpert CT/NG performance has not been evaluated in patientsless than 14 years of age. The assay should not be used forthe evaluationof suspected sexual abuse or for other medico-legalindications. Additional testing is recommended in anycircumstance when false positive or false negative resultscould lead to adverse medical, social or psychologicalconsequences. Urine (Urine, Random) 03/29/2025 8:15 AM EDT 03/29/2025 8:39 AM EDT Narrative [facility] - 03/29/2025 11:19 AM EDT Urine us Shalonda Calderón MD LAB MICROBIOLOGY - GENERAL ORDERABLES Final Result [facility] [address] [place] [phone] * HPV mRNA E6/E7 w/Reflex to HPV Genotypes 16, 18/45 (05/18/2023 9:25 AM EDT) HPV nRNA E6/E7 Not Detected Not Detected [facility] Comment:Methodology: Transcr iption-Mediated AmplificationThis assay detects E6/E7 viral messenger RNA (mRNA) from 14high-risk HPV types (16,18,31,33,35,39,45,51,52,56,58,59,66,68).Cervical sources are required for HPV testing.If a vaginal source from a patient who has had atotal hysterectomy with removal of cervix wassubmitted, please contact the testing laboratoryfor alternative testing options.For additional information, please refer tohttp://education.[employer]/faq/HHV887t1(This link if provided for information/educational purposes only.)THIS TEST WAS PERFORMED AT:[employer] [place] [phone] ECJA MD HPV mRNA E6/E7 TNP [facility] HPV 16 RNA [facility] HPV 18/45 RNA [facility] 05/18/2023 9:25 AM EDT 05/19/2023 8:00 AM EDT us Analilia Rodriguez CNM LAB CYTOLOGY ORDERABLES F inal Result [facility] [address] [place] [phone] * Pap Smear (05/18/2023 9:25 AM EDT) 05/18/2023 9:25 AM EDT 05/19/2023 8:00 AM EDT Narrative [facility] - 06/10/2023 12:16 PM EDT ----- ------- Name: Ines Espinosa Age/Sex: 42/F : 1980 Unit#: [id number] Attend Dr: ANALILIA RODRIGUEZ CNM Re05/18/23 Status: [facility] REF Location: [facility] Disch: ----- ------- SPEC : [id number] RECD: 05/19/23 STATUS: DAVIS RUSS NUM: [id number] KHAI: 05/18/23 [facility] DR: ANALILIA RODRIGUEZ CNM ENTERED: 05/19/23113 SP TYPE: Pap Smr OT DR: ORDERED: Pap Smear, PAP path review Interpretation General Category: Negative for intraepithelial lesion/malignancy. Adequacy: Endocervical component present. Interpretation: Inflammation with associated cellular changes. HPV mRNA E6/E7: Not detected This assay detects E6/E7 viral messenger RNA (mRNA) from 14 high-risk HPV types (16, 18, 31, 33, 35, 39, 45, 51, 52, 56, 58, 59, 66, 68). Clinical Information LMP: Unknown date Previous PAP test: 2019, WNL Material Received ThinPrep-Cervical ----- ------- Signed (signature on file) Ana Crisostomo MD 06/10/23 1216 ----- ------- END OF REPORT Analilia Rodriguez CNM LAB CYTOLOGY ORDERABLES F inal Result [facility] [address] [place] [phone] * Hm Colonoscopy (03/17/2018 5:23 PM EDT) Historical Provider HEALTH MAINTENANCE Final Result from Last 3 Months or Most Recently Relevant to Health Maintenance Insurance [facility] C3 Care Teams Manager Academic Relationship Specialty Start Date End Date Shalonda Lugo MD [address] [place] [phone] PCP - General Internal Medicine 06/10/23
--- OUTSIDE RECORDS SUMMARY | 2025-06-28 11:11 | XMS_ITS | Encounter Summary ---
Author Organization [employer] Address [address] [place] [phone] Care Team Providers Care Extracorporeal Circulation Specialist Name Role Phone Shalonda Lugo MD Primary Care Pro vider Reason for Visit * Reason Onset Date Comments Med Refill 11/23/2023 Encounter Details Date Type Department Care Team ([facility] Contact Info) Description 11/23/2023 Refill [facility]EDS [address] [place], [place] [phone] Ivett Wagner FNP [address] [place] [address] Other insomnia Social History Tobacco Use Types [...] Upcoming Encounters Date Type Department Care Team ([facility] Contact Info) Description 07/04/2025 9:30 AM EDT Office Visit [facility] MEDICINE [address] [place], [place] [phone] Shalonda Lugo MD [address] [place], [place] [phone] 08/26/2025 1:00 PM EST Telemedicine [facility] [address] [place] [address] Bette Nolasco RN [address] [place] [address] documented as of this encounter Visit Diagnoses Diagnosis Other insomnia documented in this encounter Care Teams Extracorporeal Circulation Specialist Relationship Specialty Start Date End Date Shalonda Lugo MD [address] [place] [phone] PCP - General Internal Medicine 06/10/23 documented as of this encounter
--- OUTSIDE RECORDS SUMMARY | 2025-06-28 11:11 | XMS_ITS | Encounter Summary ---
Author Organization [employer] Address [address] [place] [address] [address] [place] [address] Care Team Providers Care Sales Product Manager Name Role Phone Shalonda Lugo MD Primary Care Pro vider Reason for Visit * Reason Onset Date Comments Med Refill 12/29/2023 Encounter Details Date Type Department Care Team ([facility] st Contact Info) Description 12/29/2023 Refill [facility] MEDICINE [address] [place], [place] [phone] Shalonda Lugo MD [address] [place], [place] [phone] Social History Tobacco Use Types Packs/Day Years [...] Description 07/04/2025 9:30 AM EDT Office Visit [facility] MEDICINE [address] [place] [address] Shalonda Lugo MD [address] [place] [address] 08/26/2025 1:00 PM EST Telemedicine [facility]EDS [address] [place], [place] [phone] Bette Nolasco, RN [address] [place], [place] [phone] documented as of this encounter Visit Diagnoses Not on filedocumented in this encounter Care Teams Sales Product Manager Relationship Specialty Start Date End Date Shalonda Lugo MD [address] [place] [phone] PCP - General Internal Medicine 06/10/23 documented as of this encounter
== END 2025-06-28 10:09 | disposition home or self-care (01) ==
LOC: HO.PMC 09:54
PROVIDERS: PCP Student in an Organized Health Care Education/Training Program; Visit Provider Nurse Practitioner Family
DX: M25.511 Pain in right shoulder (principal); M54.9 Dorsalgia, unspecified; M54.12 Radiculopathy, cervical region; R20.2 Paresthesia of skin
CPT/HCPCS: 99214

== ENCOUNTER → 2025-06-28 09:53 | Outpatient (BNVA) | payer MEDICAID, SELFPAY | PROVIDERS: PCP Student in an Organized Health Care Education/Training Program; Visit Provider Nurse Practitioner Family | DX: M25.511 Pain in right shoulder (principal); M54.12 Radiculopathy, cervical region; R20.2 Paresthesia of skin; M54.9 Dorsalgia, unspecified | CPT/HCPCS: 99212 ==

== ENCOUNTER 2025-07-17 11:14 | Outpatient (REF) | payer MEDICAID, SELFPAY ==
--- NOTE | 2025-07-17 11:16 | EMG_ITS ---
Chief complaint: I saw the patient last 10/06/2023, presenting with right-sided posterior neck pain, running down to right arm with numbness on the thumb. MRI was obtained, and patient ultimately underwent C5-6 ACDF 11/17/[address] Pinedo. EMG done by 07/28/2023 was normal right upper extremity. EMG done by Dr. Humphries 08/23/2024 was normal bilateral upper extremities. Reason for referral: Evaluate for radiculopathy Referred by: Stephanie Rosenberg NP Procedure done: Right upper extremity NCS/EMG Precautions and/or limitations: Previous cervical surgery The limb temperature was monitored continuously and remained between 32-36 degrees C during the performance of the NCS. Nerve Conduction Studies Anti Sensory Summary Table ?Stim Site NR Onset (ms) Norm Onset (ms) Peak (ms) Norm Peak (ms) O-P Amp (?V) Norm O-P Amp Site1 Site2 Delta-0 (ms) Dist (cm) Иван (m/s) Norm Иван (m/s) Right Median Anti Sensory (2nd Digit) Wrist ? 2.3 3.0 <3.6 20.4 >10 Wrist 2nd Digit 2.3 14.0 61 Right Radial Anti Sensory (Thumb) Forearm ? 1.7 2.2 <3.1 36.2 Forearm Thumb 1.7 0.0 Right Ulnar Anti Sensory (5th Digit) Wrist ? 2.2 2.9 <3.7 52.7 >15.0 Wrist 5th Digit 2.2 14.0 64 Motor Summary Table ?Stim Site NR Onset (ms) Norm Onset (ms) O-P Amp (mV) Norm O-P Amp iAmp (mV) Amp (1st) (%) Site1 Site2 Delta-0 (ms) Dist (cm) Иван (m/s) Norm Иван (m/s) Right Median Motor (Abd Poll Brev) Wrist ? 3.0 <3.9 10.3 >4.5 12.1 100.0 Elbow Wrist 3.3 19.0 58 >45 Elbow ? 6.3 10.3 12.4 100.0 Right Ulnar Motor (Abd Dig Minimi) Wrist ? 2.5 <3.0 9.6 >5 10.6 100.0 B Elbow Wrist 2.7 17.0 63 >45 B Elbow ? 5.2 9.4 10.5 97.9 A Elbow B Elbow 1.1 10.0 91 >45 A Elbow ? 6.3 9.4 10.5 97.9 EMG ?Side Muscle Nerve Root Ins Act Fibs Psw Amp Dur Poly Recrt Int Pat Comment Right 1stDorInt Ulnar C8-T1 Nml Nml Nml Nml Nml 0 Nml Complete Right FlexCarpiUln Ulnar C8,T1 Nml Nml Nml Nml Nml 0 Nml Complete Right Biceps Musculocut C5-6 Nml Nml Nml Nml Nml 0 Nml Complete Right Triceps Radial C6-7-8 Nml Nml Nml Nml Nml 0 Nml Complete Right Deltoid Axillary C5-6 Nml Nml Nml Nml Nml 0 Nml Complete Paraspinal EMG ?Side Muscle Nerve Root Ins Act Fibs Psw Comment Right Cervical Upper Rami Nml Nml Nml Right Cervical Mid Rami Nml Nml Nml Right Cervical Lower Rami Nml Nml Nml FINDINGS: All motor and sensory nerves tested showed normal latencies, amplitudes and conduction velocities. Concentric needle EMG was performed in selected muscles of the right upper extremity and cervical paraspinals. Study did not reveal signs of electric abnormalities as shown in the table above. IMPRESSION: 1. This is a normal study. 2. There is no electrodiagnostic evidence for median neuropathy, ulnar neuropathy, brachial plexopathy, or cervical radiculopathy. Thank you for your kind referral. Zahira Suazo MD, LOIS Board Certified, [place] Board [employer] Medicine and Rehabilitation (ABPMR) Board Certified, [place] Board of Electrodiagnostic Medicine (ABEM) [place] [id number] [facility]
--- OUTSIDE RECORDS SUMMARY | 2025-07-17 12:50 | XMS_ITS | Encounter Summary ---
Author Organization [employer] Address [address] [place] [address] 7 [place] [address] Care Team Providers Care Financial Project Manager Name Role Phone Shalonda Lugo MD Primary Care Pro vider Reason for Visit * Reason Onset Date Comments Med Refill 09/04/2024 Encounter Details Date Type Department Care Team ([facility] st Contact Info) Description 09/04/2024 Refill [facility] MEDICINE [address] [place] [address] Shalonda Lugo MD [address] [place] [phone] Other insomnia Social History Tobacco Use Types [...] Female 08/16/2022 10:16 AM EDT Sexual Orientation Straight 07/03/2025 1: 27 PM EDT documented as of this encounter Plan of Treatment Upcoming Encounters Date Type Department Care Team ([facility] st Contact Info) Description 08/26/2025 1:00 PM EST Telemedicine [facility] MED & PEDS [address] [place] [address] Bette Nolasco, SINA [address] [place] [address] documented as of this encounter Visit Diagnoses Diagnosis Other insomnia documented in this encounter Additional Health Concerns Assessment Noted Time PHQ-9 Depression Total Score: 16 024 10:08 AM EDT documented as of this encounter Care Teams Financial Project Manager Relationship Specialty Start Date End Date Shalonda Lugo MD [address] [place] [phone] PCP - General Internal Medicine 06/10/23 documented as of this encounter
--- OUTSIDE RECORDS SUMMARY | 2025-07-17 12:50 | XMS_ITS | Encounter Summary ---
Author Organization [email or web address] Address [address] [place] [address] Care Team Providers Care Materials Engineer Name Role Phone Shalonda Lugo MD Primary Care Pro vider Encounter Details Date Type Department Care Team ([facility] Contact Info) Description 02/14/2025 Orders Only [facility] MED & PEDS [address] [place], [place] [phone] ProviderLamont MD Social History Tobacco Use Types Packs/Day Years [...] the past 12 months, has t he [employer], gas, oil or water company threatened to [...] Care Team (Late st Contact Info) Description 08/26/2025 1:00 PM EST Telemedicine [facility] MED & PEDS [address] [place] [address] Bette Nolasco, RN [address] [place] [address] documented as of this encounter Procedures Procedure Name Priority Date/Time Associated Diagnosis Comments HM COLONOSCOPY Routine 03/17/2018 5:23 PM EDT documented in this encounter Results * Hm Colonoscopy (03/17/2018 5:23 PM EDT) us Historical Provider HEALTH MAINTENANCE Final Result documented in this encounter Visit Diagnoses Not on filedocumented in this encounter Additional Health Concerns Assessment Noted Time PHQ-9 Depression Total Score: 16 025 11:44 AM EDT documented as of this encounter Care Teams Materials Engineer Relationship Specialty Start Date End Date Shalonda Lugo MD [address] [place] [phone] PCP - General Internal Medicine 06/10/23 documented as of this encounter
--- OUTSIDE RECORDS SUMMARY | 2025-07-17 12:50 | XMS_ITS | Encounter Summary ---
Author Organization [employer] Address 75 [facility] 7t [place] [address] Care Team Providers Care Harness Installer Name Role Phone Shalonda Lugo MD Primary Care Pro vider Reason for Visit * Reason Comments Med Refill Encounter Details Date Type Department Care Team ([facility] st Contact Info) Description 12/18/2024 Refill [facility] 230 [place], [place] [phone] Sarah Liu NP 230 [place], [place] [phone] Social History Tobacco Use Types Packs/Day Years [...] Upcoming Encounters Date Type Department Care Team ([facility] st Contact Info) Description 08/26/2025 1:00 PM EST Telemedicine [facility]S 505 [place] [address] Bette Nolasco RN 505 [place] [address] documented as of this encounter Visit Diagnoses Not on filedocumented in this encounter Additional Health Concerns Assessment Noted Time PHQ-9 Depression Total Score: 13 024 11:16 AM EST documented as of this encounter Care Teams Harness Installer Relationship Specialty Start Date End Date Shalonda Lugo MD [address] [place] [address] PCP - General Internal Medicine 06/10/23 documented as of this encounter
--- OUTSIDE RECORDS SUMMARY | 2025-07-17 12:50 | XMS_ITS | Encounter Summary ---
Author Organization [employer] Address 75 [facility] 7t [place] [address] Care Team Providers Care Database Consultant Name Role Phone Shalonda Lugo MD Primary Care Pro vider Encounter Details Date Type Department Care Team ([facility] Contact Info) Description 02/07/2025 Orders Only [facility] 230 [place] [address] Torri Hou PA [address] 3RD [place] [address] Social History Tobacco Use Types Packs/Day Years [...] Upcoming Encounters Date Type Department Care Team ([facility] st Contact Info) Description 08/26/2025 1:00 PM EST Telemedicine [facility] MED & PEDS 505 [place] [address] Bette Nolasco RN 505 [place] [address] documented as of this encounter Procedures Procedure [...] documented as of this encounter Care Teams Database Consultant Relationship Specialty Start Date End Date Shalonda Lugo MD [address] [place] [address] PCP - General Internal Medicine 06/10/23 documented as of this encounter
--- OUTSIDE RECORDS SUMMARY | 2025-07-17 12:50 | XMS_ITS | Encounter Summary ---
Author Organization [employer] Address [address] [place] [address] [place] [address] Care Team Providers Care Russian Teacher Name Role Phone Shalonda Lugo MD Primary Care Pro vider Reason for Visit * Reason Comments Med Refill Encounter Details Date Type Department Care Team ([facility] Contact Info) Description 07/18/2023 Refill [facility]INE 230 [place], [place] [phone] Ivett Wagner FNP 505 [place], [place] [phone] Other insomnia Social History Tobacco Use Types [...] Encounters Date Type Department Care Team (Late Contact Info) Description 08/26/2025 1:00 PM EST Telemedicine [facility]EDS 505 [place], [place] [phone] Bette Nolasco RN 505 [place], [place] [phone] documented as of this encounter Visit Diagnoses Diagnosis Other insomnia documented in this encounter Care Teams Russian Teacher Relationship Specialty Start Date End Date Shalonda Lugo MD 230 [place], [place] [phone] PCP - General Internal Medicine 06/10/23 documented as of this encounter
--- OUTSIDE RECORDS SUMMARY | 2025-07-17 12:50 | XMS_ITS | Clinical Summary ---
Author Organization [employer] Address 75 [facility] 7t [place] [address] Care Team Providers Care Packing Machine Can Feeder Name Role Phone Shalonda Lugo MD Primary [...] per day. 1 each 02/29/20 24 Active cholecalcifer ol (Vitamin D-3) 25 [...] 2 each 2 02/07/20 25 026 Active lidocaine (Lidoderm) 5 % patch APPLY 1 PATCH TOPICALLY TO SKIN, LEAVE ON FOR 12 HOURS AND OFF FOR 12 HOURS DIRECTED 30 patch 1 05/02/20 25 Active Drospirenone (Slynd) 4 MG tablet Take 1 tablet by mouth Once per day. 84 tablet 3 05/20/20 25 Active Acetaminophen Extra Strength 500 MG tablet TAKE 1 TABLET BY MOUTH EVERY 6 HOURS NEEDED FOR MILD PAIN 60 tablet 1 06/07/20 25 Active hydrOXYzine pamoate (Vistaril) 50 MG capsuleIndica tions:Other insomnia TAKE 1 CAPSULE BY MOUTH AT BEDTIME NEEDED FOR ANXIETY OR FOR SLEEP 30 capsule 1 06/07/20 25 Active zolpidem CR (Ambien CR) 6.25 MG ER tabletIndicat ions:Other insomnia TAKE 1 TABLET BY MOUTH AT BEDTIME NEEDED FOR SLEEP DO NOT BREAK, CRUSH, DISSOLVE OR CHEW 30 tablet 1 06/07/20 25 Active PARoxetine (Paxil) 10 MG tabletIndicat ions:Depressi ve disorder due to another medical condition with mixed features TAKE 1 TABLET BY MOUTH EVERY DAY IN THE MORNING 30 tablet 1 07/01/20 25 Active fish oil-omega-3 fatty acids 1000 MG capsule Take 1 capsule (1 g) by mouth Once per day. 90 capsule 1 07/04/20 25 026 Active meloxicam (Mobic) 15 MG tablet Take 1 tablet (15 mg) by mouth Once per day. 30 tablet 1 07/04/20 25 Active pregabalin (Lyrica) 75 MG capsule Take 1 capsule (75 mg) by mouth 2 times daily. 56 capsule 1 07/04/20 25 Active cyanocobalami n (Vitamin B-12) 1000 MCG tablet TAKE 1 TABLET BY MOUTH EVERY DAY 90 tablet 07/09/20 25 Active traMADol (Ultram) 50 MG tabletIndicat ions:Acute pain of right shoulder TAKE 1 TABLET BY MOUTH EVERY 8 HOURS NEEDED FOR MODERATE OR SEVERE PAIN MAY TAKE 2 TABLETS FOR SEVERE PAIN 112 tablet 07/09/20 25 Active meloxicam (Mobic) 15 MG tablet TAKE 1 TABLET BY MOUTH DAILY NEEDED FOR PAIN TAKE IT WITH FOOD AND FULL GLASS OF WATER 03/19/20 25 025 Discontinued(Re order (will not trigger notification to Pharmacy)) methocarbamol (Robaxin) 500 MG tablet take 1 tablet by mouth 2 times a day as needed for muscle spasm 03/19/20 25 025 Discontinued(Ot her) pregabalin (Lyrica) 50 MG capsule Take 1 capsule (50 mg) by mouth at bedtime. 90 capsule 04/03/20 25 025 Discontinued fish oil-omega-3 fatty acids 1000 MG capsule Take 1 capsule (1 g) by mouth Once per day. 90 capsule 1 04/03/20 25 025 Discontinued(Re order (will not trigger notification to Pharmacy)) cyanocobalami n (Vitamin B-12) 1000 MCG tablet TAKE 1 TABLET BY MOUTH EVERY DAY 90 tablet 04/09/20 25 025 Discontinued PARoxetine (Paxil) 10 MG tabletIndicat ions:Depressi ve disorder due to another medical condition with mixed features Take 1 tablet (10 mg) by mouth in the morning. 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 04/13/2024 Low vitamin B12 level 02/29/2024 Cervical radiculopathy 01/04/2024 Health care maintenance 12/08/2023 Numbness and tingling of right arm 06/13/2023 Irritable bowel syndrome with diarrhea 0 09/25/2023 Gastroesophageal reflux disease without esophagi tis 03/20/2012 09/25/2023 Resolved Problems Problem Noted Date Diagnosed Date Resolved Date Sinus tachycardia 12/08/2023 07/05/2025 Neck pain 06/13/2023 12/08/2023 Assessment & Plan [...] to short course tramadol and gabapentin, I psychosocial rehabilitation counselor patient (no to take this medications together, they cause somnolence do not drive) Acute pain of right shoulder 06/13/2023 12/08/2023 Encounters * This document contains information received from the source organization and may not represent a complete record from that organization. 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; Cervical radiculopathy; Numbness and tingling of right arm 07/04/2025 Travel 07/03/2025 Telephone [facility] [address] [place] [address] Shalonda Lugo MD chart prep 06/30/2025 Refill [facility] [address] [place] [address] Shalonda Lugo MD 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 06/20/2025 Results Follow-Up [facility] [address] [place] [address] Shalonda Lugo MD US Renal Complete 06/10/2025 Orders Only [facility] [address] [place] [address] Shalonda Lugo MD 06/07/2025 10:00 AM EDT Clinical Support [facility] [address] [place] [address] Bette Nolasco RN Long-term current use of opiate analgesic 06/07/2025 Travel 06/07/2025 Refill [facility] 230 [place] [address] Shalodna Lugo MD Acute pain of right shoulder; Other insomnia 05/20/2025 10:15 AM EDT Office Visit [facility] 230 [place] [address] Analilia Rodriguez CNM Surveillance of previously prescribed contraceptive pill (Primary Dx) 05/20/2025 Travel 05/17/2025 Travel 05/17/2025 Telephone [facility] 230 [place] [address] Maye Goodwin MA 05/03/2025 Refill [facility] [address] [place] [address] Analilia Rodriguez CNM 05/01/2025 Refill [facility] [address] [place] [address] Nicole Dupree MD 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 from Last 3 Months Immunizations Immunization Administration [...] your housing situation today? I have raoul albin 01/28/[address] you li [...] Orientation Straight 07/03/2025 1: 27 PM EDT Last Filed Vital Signs Vital Sign Reading Time Taken Comments Blood Pressure 120/64 07/04/2025 9:23 AM EDT Pulse 97 07/04/2025 9:23 AM EDT Temperature 36.1 C (96.9 F) 07/04/2025 9:23 AM EDT Respiratory Rate 20 07/04/2025 9:23 AM EDT Oxygen Saturation 98% 07/04/2025 9:23 AM EDT Inhaled Oxygen Concentration - - Weight 69.9 kg (154 lb 3.2 oz) 07/04/2025 9:23 A M EDT Height 158 cm (5' 2.21 ) 07/04/2025 9:23 AM EDT Body Mass Index 28.02 07/04/2025 9:23 AM EDT Plan of Treatment Upcoming Encounters Date Type Department Care Team ([facility] st Contact Info) Description 08/26/2025 1:00 PM EST Telemedicine [facility]EDS 505 [place] [address] Bette Nolasco, RN 505 [place] [address] Health Maintenance Due Date Last Done Comments CT Colonography 1980 FIT DNA/Cologuard 1980 FIT 1980 FOBT 1980 Sigmoidoscopy 1980 COVID-19 Vaccine ( season) 2025 08/18/2021 Influenza Vaccine (#1) 2025 , 08/12/2018, 08/08/2018, Additional history exists Depression Monitoring 08/08/2025 02/06/2025, 025 SDOH Screening 01/28/2026 01/28/2025 Alcohol/Substance Use Screening 04/03/2026 04/03/2025 Disability Screening 04/03/2026 04/03/2025 Family Planning (PISQ) 05/20/2026 05/20/2025 Tobacco Screening 07/04/2026 07/04/2025 Mammogram 06/10/2027 06/10/2025, 07/0 06/2024, 03/01/2023, Additional [...] EDT Long-term current use of opiate analgesic HEPATITIS C AB W/REFL TO HCV RNA, QN, PCR Routine 03/29/2025 8:29 AM EDT Annual physical exam HIV 1/2 ANTIGEN/ANTIBODY, FOURTH GENERATION W/RFL Routine 03/29/2025 8:29 AM EDT Annual physical exam HPV MRNA [...] AM EDT Narrative 06/20/2025 10:43 AM EDT [place] [address] Ultrasound Report Signed Patient: Ines Espinosa MR#: [id number] : 1980 Acct:[id number] Age/Sex: 44 / F ADM Date: 06/19/25 Loc: HO.US Attending Dr: Shalonda Calderón MD Ordering Physician: Shalonda Lugo MD Date of Service: 06/19/25 Procedure(s): US renal BI Accession Number(s): [id number] cc: Shalonda Lugo MD Reason for Exam: [...] signed by Denice Norris MD in OV> 06/20/251041 DD/ 41 TD/TT: 06/20/251041 Busser: Procedure Note Sivakumar, Image - 06/20/2025 [place] [address] Ultrasound Report Signed Patient: Ines EspinosaMR#: [id number] : 1980Acct:[id number] Age/Sex: 44 / FADM Date: 06/19/25 Loc: HO.US Attending Dr: Shalonda Calderón MD Ordering Physician: Shalonda Lugo MD Date of Service: 06/19/25 Procedure(s): US renal BI Accession Number(s): [id number] cc: Shalonda Lugo MD Reason for Exam: [...] signed by Denice Norris MD in OV> 06/20/251041 DD/ 41 TD/TT: 06/20/251041 Busser: us Shalonda Calderón MD IMG US PROCEDURES Final Result * BI Mammogram Screening Tomosynthesis Bilateral (06/10/2025 8:50 AM EDT) Anatomical Region Laterality Modality Breast Bilateral Mammography 06/10/2025 8:50 AM EDT Narrative 06/12/2025 12:20 PM EDT [place] [facility] [address] [place] [address] Mammography Report Signed Patient: Ines Espinosa MR#: [id number] : 1980 Acct:[id number] Age/Sex: 44 / F ADM Date: 06/10/25 Loc: HO.MAMMO Attending Dr: Shalonda Calderón MD Ordering Physician: Shalonda Lugo MD Re sults: 1Negative Date of Service: 06/10/25 Follow Up: 1 Year From Orig inal Mammogram Procedure(s): MM tomosynthesis screening BI Accession Number(s): [id number] cc: Shalonda Lugo MD EXAMINATION: MM SCREENING [...] 06/12/25 1217 DD/ 0850 TD/TT: 06/10/25 0911 Busser: Procedure Note Donotuseinterpreter, Image - [facility]12/[facility] [address] [place], [place] [address] Mammography Report Signed Patient: Ines EspinosaMR#: [id number] : 1980Acct:[id number] Age/Sex: 44 / FADM Date: 06/10/25 Loc: HO.MAMMO Attending Dr: Shalonda Calderón MD Ordering Physician: Shalonda Lugo sults: 1Negative Date of Service: 06/10/25Follow Up: 1 Year From Orig inal Mammogram Procedure(s): MM tomosynthesis screening BI Accession Number(s): [id number] cc: Shalonda Lugo MD EXAMINATION: MM SCREENING [...] 06/12/25 1217 DD/ 0850 TD/TT: 06/10/25 0911 Busser: Shalonda Calderón MD IMG BI PROCEDURES Final [...] - 06/07/2025 10:25 AM EDT .UT[employer] cup Lot#[id number] Exp. 07/23/26 Internal Pass Control Shalonda Calderón MD POINT OF CARE HARRISON T ENTER/EDIT ORDERABLES Final Result * Hepatitis C Antibody with Reflex to HCV, RNA, Quantitative, Real-Time PCR (03/29/2025 8:29 AM EDT) Pathologist [facility] Hepatitis C Antibody Nonreactive Nonreactive [facility] Comment:Antibodies to HCV no t detected; does not exclude early acuteHCV infection. Blood Venous blood specimen / Unknown 03/29/2025 8:29 AM EDT 03/29/2025 8:29 AM EDT us Shalonda Calderón MD LAB BLOOD ORDERAB LES Final Result [facility] [address] [place] [phone] * HIV-1/2 Antigen and Antibodies, Fourth Generation, with Reflexes (03/29/2025 8:29 AM EDT) Pathologist [facility] HIV AB/AG Nonreactive Nonreactive [facility] Comment:HIV-1 p24 Ag and/or HIV-1/HIV-2 Ab not detected.A test result that is nonreactive does not exclude thepossibility of exposure to or infection with HIV-1 and/orHIV-2. Nonreactive results in this assay for individualswith prior exposure to HIV-1 and/or HIV-2 may be due toantigen and antibody levels that are below the limit ofdetection of this assay.The Pinstant KarmaniVoxli HIV Ag/Ab Combo assay result andsupplemental assay results should be interpreted inconjunction with the patient's clinical presentation,history and other laboratory results. If the results areinconsistent with clinical evidence, additional testing issuggested to confirm the result. Blood Venous blood specimen / Unknown 03/29/2025 8:29 AM EDT 03/29/2025 8:29 AM EDT us Shalonda Calderón MD LAB BLOOD ORDERAB LES Final Result [facility] [address] [place] [phone] * HPV mRNA E6/E7 w/Reflex to HPV Genotypes 16, 18/45 (05/18/2023 9:25 AM EDT) HPV nRNA E6/E7 Not Detected Not Detected [facility] Comment:Methodology: Transcr iption-Mediated AmplificationThis assay detects E6/E7 viral messenger RNA (mRNA) from 14high-risk HPV types (16,18,31,33,35,39,45,51,52,56,58,59,66,68).Cervical sources are required for HPV testing.If a vaginal source from a patient who has had atotal hysterectomy with removal of cervix wassubmitted, please contact the testing laboratoryfor alternative testing options.For additional information, please refer tohttp://education.[employer]/faq/GSD665a5(This link if provided for information/educational purposes only.)THIS TEST WAS PERFORMED AT:[facility] [place] [id number] CEJA MD HPV mRNA E6/E7 TNP [facility] HPV 16 RNA TNP [facility] HPV 18/45 RNA TNP [facility] 05/18/2023 9:25 AM EDT 05/19/2023 8:00 AM EDT Analilia Rodriguez CNM LAB CYTOLOGY ORDERABLES F inal Result [facility] [address] [place] [phone] * Pap Smear (05/18/2023 9:25 AM EDT) 05/18/2023 9:25 AM EDT 05/19/2023 8:00 AM EDT Narrative [facility] - 06/10/2023 12:16 PM EDT ----- ------- Name: Ines Espinosa Age/Sex: 42/F : 1980 Unit#: [id number] Attend Dr: ANALILIA RODRIGUEZ CNM Re05/18/23 Status: DEP REF Location: HO.HHCLNP Disch: ----- ------- SPEC : [id number] RECD: 05/19/23 STATUS: DAVIS RUSS NUM: [id number] KHAI: 05/18/23 [facility] DR: ANALILIA RODRIGUEZ CNM ENTERED: 05/19/23-1138 SP TYPE: Pap Smr OTHR DR: ORDERED: Pap Smear, PAP path review [...] Information LMP: Unknown date Previous PAP test: WNL Material Received ThinPrep-Cervical ----- ------- Signed (signature on file) Ana Crisostomo MD 06/10/23 1216 ----- ------- END OF REPORT Analilia Rodriguez CNM LAB CYTOLOGY ORDERABLES F inal Result [facility] [address] [place] [phone] * Hm Colonoscopy (03/17/2018 5:23 PM EDT) Historical Provider HEALTH MAINTENANCE Final Result from Last 3 Months or Most Recently Relevant to Health Maintenance Insurance [address] [place], [place] [address] C3 Care Teams Packing Machine Can Feeder Relationship Specialty Start Date End Date Shalonda Lugo MD [address] [place] [phone] PCP - General Internal Medicine 06/10/23
--- OUTSIDE RECORDS SUMMARY | 2025-07-17 12:50 | XMS_ITS | Encounter Summary ---
Author Organization [employer] Address 75 [facility] 7t [place] [address] Care Team Providers Care Master Police Detective Name Role Phone Shalonda Lugo MD Primary Care Pro vider Reason for Visit * Reason Onset Date Comments Med Refill 01/07/2025 Encounter Details Date Type Department Care Team ([facility] st Contact Info) Description 01/07/2025 Refill [facility] 230 [place], [place] [phone] Sarah Liu NP 230 [place] [address] Social History Tobacco Use Types Packs/Day Years [...] Upcoming Encounters Date Type Department Care Team ([facility] st Contact Info) Description 08/26/2025 1:00 PM EST Telemedicine [facility] 505 [place] [address] Bette Nolasco RN 505 [place] [address] documented as of this encounter Visit Diagnoses Not on filedocumented in this encounter Additional Health Concerns Assessment Noted Time PHQ-9 Depression Total Score: 13 024 11:16 AM EST documented as of this encounter Care Teams Master Police Detective Relationship Specialty Start Date End Date Shalonda Lugo MD [address] [place] [address] PCP - General Internal Medicine 06/10/23 documented as of this encounter
--- OUTSIDE RECORDS SUMMARY | 2025-07-17 12:50 | XMS_ITS | Encounter Summary ---
Author Organization [employer] Address 75 [facility] 7t [place] [address] Care Team Providers Care Stringer Up Soldering Machine Name Role Phone Shalonda Lugo MD Primary Care Pro vider Encounter Details Date Type Department Care Team ([facility] Contact Info) Description 06/20/2025 Results Follow-Up [facility] 230 [place] [address] Shalonda Lugo MD 230 [place] [address] US Renal Complete Social History Tobacco Use [...] PM EDT documented as of this encounter Miscellaneous [...] Info) Description 08/26/2025 1:00 PM EST Telemedicine [facility] 505 [place] [address] Bette Nolasco, RN 505 [place] [address] documented as of this encounter Visit Diagnoses Not on filedocumented in this encounter Additional Health Concerns Assessment Noted Time PHQ-9 Depression Total Score: 16 025 11:44 AM EDT documented as of this encounter Care Teams Stringer Up Soldering Machine Relationship Specialty Start Date End Date Shalonda Lugo MD [address] [place] [address] PCP - General Internal Medicine 06/10/23 documented as of this encounter
--- OUTSIDE RECORDS SUMMARY | 2025-07-17 12:50 | XMS_ITS | Encounter Summary ---
Author Organization [employer] Address [address] [place] [address] 7 [place] [address] Care Team Providers Care Parachute Taper Name Role Phone Shalonda Lugo MD Primary Care Pro vider Reason for Visit * Reason Comments Med Refill Encounter Details Date Type Department Care Team ([facility] Contact Info) Description 11/15/2023 Refill [facility] 230 [place], [place] [phone] Shalonda Lugo MD 230 [place], [place] [phone] Other insomnia Social History Tobacco Use Types [...] Upcoming Encounters Date Type Department Care Team ([facility] Contact Info) Description 08/26/2025 1:00 PM EST Telemedicine [facility] 505 [place], [place] [phone] Bette Nolasco, SINA 505 [place], [place] [phone] documented as of this encounter Visit Diagnoses Diagnosis Other insomnia documented in this encounter Care Teams Parachute Taper Relationship Specialty Start Date End Date Shalonda Lugo MD 230 [place] [address] PCP - General Internal Medicine 06/10/23 documented as of this encounter
--- OUTSIDE RECORDS SUMMARY | 2025-07-17 12:50 | XMS_ITS | Encounter Summary ---
Author Organization [employer] Address [address] [place] [address] 7 [place] [address] Care Team Providers Care Outside Sales Advertising Executive Name Role Phone Shalonda Lugo MD Primary Care Pro vider Reason for Visit * Reason Onset Date Comments Med Refill 06/26/2024 Encounter Details Date Type Department Care Team ([facility] st Contact Info) Description 06/26/2024 Refill [facility] MED[facility] [address] [place] [address] Shalonda Lugo MD 230 [place] [address] Social History Tobacco Use Types Packs/Day Years [...] Info) Description 08/26/2025 1:00 PM EST Telemedicine [facility] P[facility] 505 [place] [address] Bette Nolasco, RN 505 [place] [address] documented as of this encounter Visit Diagnoses Not on filedocumented in this encounter Additional Health Concerns Assessment Noted Time PHQ-9 Depression Total Score: 16 024 10:08 AM EDT documented as of this encounter Care Teams Outside Sales Advertising Executive Relationship Specialty Start Date End Date Shalonda Lugo MD [address] [place] [address] PCP - General Internal Medicine 06/10/23 documented as of this encounter
--- OUTSIDE RECORDS SUMMARY | 2025-07-17 12:51 | XMS_ITS | Encounter Summary ---
Author Organization [employer] Address [address] [facility] [address] [place] [address] Care Team Providers Care Carpet Loom Fixer Name Role Phone Shalonda Lugo MD Primary Care Pro vider Reason for Visit * Reason Comments Med Refill Encounter Details Date Type Department Care Team ([facility] st Contact Info) Description 07/16/2025 Refill [facility] [address] [place] [address] Shalonda Lugo MD [address] [place] [address] Social History Tobacco Use Types Packs/Day Years [...] Upcoming Encounters Date Type Department Care Team ([facility] st Contact Info) Description 08/26/2025 1:00 PM EST Telemedicine [facility] MED & PEDS [address] [place] [address] Bette Nolasco, SINA [address] [place] [address] documented as of this encounter Visit Diagnoses Not on filedocumented in this encounter Additional Health Concerns Assessment Noted Time PHQ-9 Depression Total Score: 16 025 11:44 AM EDT documented as of this encounter Care Teams Carpet Loom Fixer Relationship Specialty Start Date End Date Shalonda Lugo MD [address] [place] [id number] PCP - General Internal Medicine 06/10/23 documented as of this encounter
--- OUTSIDE RECORDS SUMMARY | 2025-07-17 12:51 | XMS_ITS | Encounter Summary ---
Author Organization [employer] Address [address] [place] [address] [place] [address] Care Team Providers Care Paper Cone Grader Name Role Phone Shalonda Lugo MD Primary Care Pro vider Reason for Visit * Reason Onset Date Comments Med Refill 12/29/2023 Encounter Details Date Type Department Care Team ([facility] st Contact Info) Description 12/29/2023 Refill [facility] MED[facility]INE [address] [place], [place] [phone] Shalonda Lugo MD [address] [place], [place] [phone] Social History Tobacco Use Types Packs/Day Years [...] 08/26/2025 1:00 PM EST Telemedicine [facility] MED & PEDS [address] [place] [address] Bette Nolasco, SINA [address] [place] [address] documented as of this encounter Visit Diagnoses Not on filedocumented in this encounter Care Teams Paper Cone Grader Relationship Specialty Start Date End Date Shalonda Lugo MD [address] [place] [id number] PCP - General Internal Medicine 06/10/23 documented as of this encounter
--- OUTSIDE RECORDS SUMMARY | 2025-07-17 12:51 | XMS_ITS | Encounter Summary ---
Author Organization [employer] Address [address] [place] [address] [place] [address] Care Team Providers Care Receiver Setter Name Role Phone Shalonda Lugo MD Primary Care Pro vider Reason for Visit * Reason Onset Date Comments Med Refill 11/23/2023 Encounter Details Date Type Department Care Team ([facility] Contact Info) Description 11/23/2023 Refill [facility] [address] [place], [place] [phone] Ivett Wagner FNP [address] [place] [address] Other insomnia Social History Tobacco Use Types [...] Upcoming Encounters Date Type Department Care Team ([facility] Contact Info) Description 08/26/2025 1:00 PM EST Telemedicine [facility] [address] [place] [address] Bette Nolasco RN [address] [place], [place] [phone] documented as of this encounter Visit Diagnoses Diagnosis Other insomnia documented in this encounter Care Teams Receiver Setter Relationship Specialty Start Date End Date Shalonda Lugo MD [address] [place] [address] PCP - General Internal Medicine 06/10/23 documented as of this encounter
--- OUTSIDE RECORDS SUMMARY | 2025-07-17 12:51 | XMS_ITS | Encounter Summary ---
Author Organization [employer] Address [address] [place] [address] 7 [place] [address] Care Team Providers Care Mover Helper Name Role Phone Shalonda Lugo MD Primary Care Pro vider Reason for Visit * Reason Onset Date Comments Med Refill 08/03/2024 Encounter Details Date Type Department Care Team ([facility] st Contact Info) Description 08/03/2024 Refill [facility] MEDICINE [address] [place] [address] Shalonda Lugo MD [address] [place] [address] Social History Tobacco Use Types Packs/Day Years [...] Upcoming Encounters Date Type Department Care Team ([facility] st Contact Info) Description 08/26/2025 1:00 PM EST Telemedicine [facility] MED & PEDS [address] [place] [address] Bette Nolasco, RN [address] [place] [address] documented as of this encounter Visit Diagnoses Not on filedocumented in this encounter Additional Health Concerns Assessment Noted Time PHQ-9 Depression Total Score: 16 024 10:08 AM EDT documented as of this encounter Care Teams Mover Helper Relationship Specialty Start Date End Date Shalonda Lugo MD [address] [place] [id number] PCP - General Internal Medicine 06/10/23 documented as of this encounter
== END 2025-07-17 11:15 | disposition home or self-care (01) ==
LOC: HO.NEURO 11:14
PROVIDERS: PCP Student in an Organized Health Care Education/Training Program; Visit Provider Nurse Practitioner Family
DX: M54.12 Radiculopathy, cervical region (principal); R20.2 Paresthesia of skin; M25.511 Pain in right shoulder
CPT/HCPCS: 95886; 95909

== ENCOUNTER → 2025-07-17 11:16 | Outpatient (BNV) | payer MEDICAID, SELFPAY | PROVIDERS: PCP Student in an Organized Health Care Education/Training Program; Visit Provider Physical Medicine & Rehabilitation | DX: M54.12 Radiculopathy, cervical region (principal) | CPT/HCPCS: 95886; 95909 ==